=== PATIENT | female | born 1935 | race Caucasian/White ===

== ENCOUNTER 2016-10-20 23:14 | Inpatient (IN) ==
--- NOTE | 2016-10-20 23:51 | Emergency Department Note ---
SOB HPI - General Chief Complaint: Shortness of Breath/Dyspnea Stated Complaint: shortness of breathe Time Seen by Provider: 10/20/16 23:39 Source: EMS Mode of arrival: EMS - History of Present Illness Patient sent here from [place] for shortness of breath. The. She is noted have a respiratory rate of about 40 in the emergency department at [place]. The PA stated that they could not get any IV access, they were unable do any blood work, concern was that she had a fracture of her tib-fib which was a spiral fracture about 2 weeks ago, now she was having significant shortness of breath. The. She is currently in a cast. The right lower leg, today her states she was very weak, shaky at times. She was confused and then this evening she had an increased respiratory rate. Breathing at a rate of 32- 36. She seems short of breath but denies any chest pain, she has had a slight cough but denies any ankle swelling, EKG done in [place] is not showing any ST segment changes, left anterior fascicular block. She denies any abdominal pain , he said no nausea, vomiting, slightly decreased by mouth intake and respiratory symptoms as mentioned. No recent diarrhea, no recent antibiotics, she's been in a cast for a little bit more than a week now. - Related Data Home Medications Medication Instructions Recorded Confirmed HYDROcodone/APAP 5/325MG [[place] 1 tab PO Q5-6HP PRN 10/20/16 10/21/16 5/325Mg] Levothyroxine [Synthroid] 125 mcg PO DAILY 10/20/16 10/20/16 Omeprazole 40 mg PO DAILY 10/20/16 10/20/16 Venlafaxine HCl [Effexor Xr] 150 mg PO DAILY 10/20/16 10/20/16 amLODIPine [Norvasc] 5 mg PO DAILY 10/20/16 10/21/16 busPIRone [Buspar] 10 mg PO HS 10/20/16 10/20/16 lamoTRIgine [Lamictal] 150 mg PO BID 10/20/16 10/20/16 levETIRAcetam [Levetiracetam] 1,500 mg PO BID 10/20/16 10/20/16 Allergies Allergy/AdvReac Type Severity Reaction Status Date / Time No Known Drug Allergies Allergy Unverified 10/21/16 00:04 Review of Systems All systems ED: reviewed and negative except as stated. Constitutional: Reports: fever, chills Eyes: Denies: eye pain ENT ED: Denies: throat pain Cardiovascular: Reports: palpitations, dyspnea on exertion, orthopnea. Denies: chest pain Respiratory: Reports: cough Gastrointestinal: Denies: abdominal pain, nausea Neurological: Denies: headache Psychiatric: Denies: anxiety Endocrine: Reports: fatigue Allergic/Immunologic: Denies: facial swelling Past Medical History - Past Medical History Source: nursing notes reviewed Medical history: Reports: fibromyalgia, hypertension, seizures, thyroid disease Surgical history ED: Reports: orthopedic, other Family history: Reports: non-contributory - Social History smoking status: Never smoker Drug use: Reports: none Physical Exam - General Limitations: no limitations General appearance: alert, in distress - Head Head exam: atraumatic, normocephalic, normal inspection - Eye Eye exam: Present: normal appearance, PERRL, EOMI. Absent: scleral icterus - ENT ENT exam: normal exam, normal oropharynx, mucous membranes moist, TM's normal bilaterally - Neck Neck exam: Present: normal inspection, full ROM, trachea midline. Absent: tenderness, meningismus, lymphadenopathy, thyromegaly - Chest Chest inspection: Present: normal inspection, symmetric chest wall rise. Absent : tenderness - Respiratory Respiratory exam: Present: respiratory distress, prolonged expiratory phase, other (bilateral rhonchi and rales over the lung basis up.) - Cardiovascular Cardiovascular exam: Present: regular rate, normal rhythm - Abdominal Exam Abdominal exam: Present: soft, normal bowel sounds. Absent: distention, tenderness, guarding - Extremities Exam Extremities exam: Present: normal inspection, tenderness, normal capillary refill, joint swelling, other (right lower leg is in a cast, she has good sensation distally. No calf swelling, Homans sign is negativeon the left.). Absent: calf tenderness - Back Exam Back exam: Present: normal inspection, full ROM. Absent: tenderness, CVA tenderness (R), CVA tenderness (L) - Neurological Exam Neurological exam: Present: alert, oriented X3, CN II-XII intact - Psychiatric Psychiatric exam: Present: normal affect, normal mood - Skin Skin exam: Present: warm, dry, diaphoresis. Absent: rash Course - Reevaluation(s) Reevaluation #1: Patient was started on Nitropaste as she was hypertensive, had basilar rales. Blood pressure was still a little bit on the high side, chest x-ray showing bilateral infiltrates consistent with pneumonia. We did obtain a blood gas, she was started on oxygen 2 L after that as her PaO2 was less than 60. PH was 7.47. Pneumonia protocol started and Dr. Sepulveda notified, he will be down to see her in the department. Vital Signs Temperature 97.0 F L 10/20/16 23:15 Pulse Rate 83 10/20/16 23:15 Respiratory Rate 28 H 10/20/16 23:15 Blood Pressure 155/96 10/20/16 23:15 Pulse Oximetry (%) 98 10/20/16 23:15 Temperature 97.0 F L 10/20/16 23:15 Pulse Rate 79 10/21/16 00:39 Respiratory Rate 28 H 10/20/16 23:15 Blood Pressure 146/87 10/21/16 00:39 Pulse Oximetry (%) 98 10/21/16 00:39 Shortness of Breath/Dyspnea - [facility] Narrative Medical decision making narrative: impression is bilateral pneumonia. #2 CHF and hypertension. - Lab Data Result diagrams: 10/20/16 21:58 10/20/16 23:58 Lab Results 10/20/16 10/20/16 Range/Units 21:58 23:58 WBC 24.4 H (4.5-11.0) K/mcL RBC 4.53 (4.00-5.20) M/mcL Hgb 11.5 L (12.0-15.0) g/dL Hct 36.9 (36.0-48.0) % POC Hct 39.0 (36.0-48.0) % MCV 81.5 (80.0-100.0) fL MCH 25.3 L (26.0-34.0) pg MCHC 31.0 (31.0-36.0) g/dL RDW 16.8 H (11.5-14.5) % Plt Count 328 (140-440) K/mcL MPV 7.4 (7.4-10.4) fL Band Neutrophils % Not Reportable POC Sodium 136 (133-145) mmol/L POC Potassium 3.4 (3.3-5.1) mmol/L POC Chloride 98 (96-108) mmol/L POC Total CO2 24 (22-30) mmol/L POC BUN 22 (8-23) mg/dl POC Creatinine 1.2 H (0.6-1.1) mg/dl POC Glucose 132 H (70-105) mg/dL POC WB Ioniz Calcium 1.07 L (1.16-1.32) mmol/L Disposition Clinical Impression: Congestive heart failure, Community acquired pneumonia Disposition: Xfer As Inpt ([facility]) Condition: Undetermined Referrals: Mayo Clayton, RN [Primary Care Provider] -
[2016-10-20] MEDS ORDERED: NITROGLYCERIN 1 GM OINT.TOP TD ONE (23:54)
[2016-10-21 00:50] LABS: Mean Cell Volume 81.5 fL (80.0-100.0); Mean Corpuscular Hemoglobin 25.3 pg (26.0-34.0); Platelet Count 328 K/mcL (140-440); RBC 4.53 M/mcL (4.00-5.20); Red Cell Distribution Width 16.8 % (11.5-14.5)
[2016-10-21] MEDS ORDERED: LEVOFLOXACIN 500 MG/100 ML BAG IV ONE (00:59)
[2016-10-21] MEDS ORDERED: cefTRIAXone 1 GM in DEXTROSE 5% IN WATER 50 ML IV ONE (00:59)
[2016-10-21 01:11] LABS: ALT/SGPT 18 U/l (0-40); Albumin/Globulin Ratio 0.8 (1.0-2.3); Alkaline Phosphatase 69 U/L (39-117); Blood Urea Nitrogen 20 mg/dl (8-23); C-Reactive Protein 28.6 mg/dl (0.0-0.8); Creatine Kinase 843 IU/L (24-170); Creatine Kinase MB 6.9 ng/ml (0-2.9)
[2016-10-21 01:23] LABS: Anisocytosis 1+ (NONE SEEN); Band Neutrophils % 2 % (0-10); Hypochromasia 1+ (NONE SEEN); Lymphocytes % 2 % (15-49); Monocytes % (Manual) 14 % (1-9); Platelet Estimate NORMAL (NORMAL); RBC Morphology ABNORM (NORMAL); Segmented Neutrophils % 82 % (38-78)
--- NOTE | 2016-10-21 02:11 | Internal Med History&Physical ---
Medical - H&P: HPI Patient information: Note initiated : 10/21/16 at 2:06 am Service Date, if different from initiated Date: [] Patient: Gloria Rose a 81 y/o F admitted on for shortness of breathe. Chief Complaint: [] History of present illness: Ms. Rose is a 81 year old female who lives with her in [place] presents to the ER from [place] via ambulance, with not feeling well x 3-5 days. The patient had a fracture of her ankle nearly 2 weeks ago, and was placed in cast and on hydrocodone for pain relief. This medication made her very sick and loopy. The patient had an episode of vomiting approximately 12 days ago, and has not been feeling well on and off. The patient over the last 3-5 days has gradually deteriorated, with cough, with no expectoration, shortness of breath, fever, chills and rigors, fatigue, sweating, and generalized malaise. No aggravating or releving factors, progressively has gotten worse. She had some nausea this evening. The patient was confused today and not herself, with tachypena was brought to [facility], where it was difficult to get IV access, therefore pt was sent here. since Yesterday the patient has also noticed increased frequency of urination, foul smelling urine, and has been taking otc azo for same. In the ER here she presented with tachypea, diaphoresis, sweating, elevated blood pressure. She was given IV fluids, X ray showed es pna as pe ER physician , UA suggestive of UTI. She was therefore admitted to the hospital for further management. - Constitutional Constitutional: Present: chills, fatigue, fever(s), weakness - EENT Eyes: Absent: blind spots, blurry vision, change in vision Ears: Absent: ear discharge, tinnitus Nose, mouth and throat: Absent: disequilibrium, dizziness - Cardiovascular Cardiovascular: Present: diaphoresis. Absent: chest pain, palpatations, syncope - Respiratory Respiratory: Present: cough, dyspnea, dyspnea on exertion - Gastrointestinal Gastrointestinal: Present: nausea, vomiting. Absent: abdominal pain - Genitourinary Genitourinary: Present: urinary frequency, urinary urgency. Absent: hematuria - Musculoskeletal Musculoskeletal: Present: arthralgias (ankle pain.) - Integumentary Integumentary: Absent: unusual bruising, wounds, jaundice - Neurological Neurological: Absent: dizziness, focal weakness, syncope, vertigo - Psychiatric Psychiatric: Present: confusion. Absent: anxiety - Endocrine Endocrine: Absent: polydipsia, polyphagia, polyuria - Hematologic/Lymphatic Hematologic/Lymphatic: Absent: easy bleeding, easy bruising - Allergic/Immunologic Allergic/Immunologic: Absent: uticaria, wheezing Medical - H&P: PMH Medical history: Medical History Community acquired pneumonia (Acute) Congestive heart failure (Acute) seizures htn hypothyroidism Surgical history: back surgery Ankle fracture 2 weeks ago Family history: reviewed and not pertinent Social history: lives with no etoh, no tobacco, no recreational drugs. Medical - H&P: Meds Home Medications Medication Instructions Recorded Confirmed Type HYDROcodone/APAP 5/325MG [[place] 1 tab PO Q5-6HP PRN 10/20/16 10/21/16 History 5/325Mg] Levothyroxine [Synthroid] 125 mcg PO DAILY 10/20/16 10/20/16 History Omeprazole 40 mg PO DAILY 10/20/16 10/20/16 History Venlafaxine HCl [Effexor Xr] 150 mg PO DAILY 10/20/16 10/20/16 History amLODIPine [Norvasc] 5 mg PO DAILY 10/20/16 10/21/16 History busPIRone [Buspar] 10 mg PO HS 10/20/16 10/20/16 History lamoTRIgine [Lamictal] 150 mg PO BID 10/20/16 10/20/16 History levETIRAcetam [Levetiracetam] 1,500 mg PO BID 10/20/16 10/20/16 History Allergies Allergy/AdvReac Type Severity Reaction Status Date / Time No Known Drug Allergies Allergy Unverified 10/21/16 00:04 Medical - H&P: Exam - Constitutional Vitals: Temp Pulse Resp BP Pulse Ox 97.0 F L 78 28 H 150/99 96 10/20/16 23:15 10/21/16 00:59 10/20/16 23:15 10/21/16 00:59 10/21/16 00:59 General appearance: cooperative, no acute distress - Head Head exam: Present: atraumatic, normal inspection, normocephalic - Eye Eye exam: Present: PERRL. Absent: periorbital swelling, periorbital tenderness , scleral icterus - ENT ENT exam: Present: mucous membranes dry - Neck Neck exam: Present: normal inspection - Respiratory Respiratory exam: Present: prolonged expiratory phase. Absent: accessory muscle use, chest wall tenderness, respiratory distress, wheezes Additional comments: bibasilar mild insipiratory crackles. - Cardiovascular Cardiovascular exam: Present: normal rate and rhythm, +S1, +S2 - GI/Abdominal GI/Abdominal exam: Present: normal bowel sounds, soft. Absent: firm, guarding, rebound, tenderness - Extremities Exam Extremities exam: Present: Foot pink and warm, neurovascular intact. Absent: pedal edema Additional comments: right foot in cast, - Back Exam Back exam: Present: normal inspection. Absent: paraspinal tenderness - Neurological Exam Neurological exam: Present: alert ( oox2, moving all extremities, ). Absent: motor sensory deficit - Psychiatric Psychiatric exam: Absent: agitated, anxious - Skin Skin exam: Present: warm. Absent: rash, urticaria Medical - H&P: Reslt - Labs CBC & Chem 7: 10/20/16 21:58 10/20/16 23:58 Labs: Short CBC 10/20/16 Range/Units 21:58 WBC 24.4 H (4.5-11.0) K/mcL Hgb 11.5 L (12.0-15.0) g/dL Hct 36.9 (36.0-48.0) % Plt Count 328 (140-440) K/mcL BMP 10/20/16 23:58 Sodium 131 L Potassium 3.4 Chloride 93 L Carbon Dioxide 20 L BUN 20 Creatinine 1.4 H Glucose 131 H Calcium 8.8 Cardiac Enzymes 10/20/16 10/20/16 Range/Units 23:58 23:58 Total Creatine Kinase 843 H (24-170) IU/L CK-MB (CK-2) 6.9 H (0-2.9) ng/ml Troponin T < 0.01 (0-0.03) ng/ml Liver Function 10/20/16 Range/Units 23:58 Total Bilirubin 0.6 (0.0-1.0) mg/dL AST 49 H (0-37) U/l ALT 18 (0-40) U/l Alkaline Phosphatase 69 (39-117) U/L Albumin 3.0 L (3.2-5.2) gm/dL - ABG Interpretation -: ABG interpreted by me Additional comments: Acute respiratory alkalosis, associated with high anion gap metabolic acidosis. - EKG Data -: EKG Interpreted by Myself EKG shows normal: sinus rhythm - EKG Data Prior EKG available for review: no Interpretation: other EKG comments: 10/21/16 02:18 sinus tachycardia lafb non sp st wave changes. - Impressions cxr chest - right middle lobe pna es intersitial markings, interstitial pna vs chf. Medical - H&P: A/P (1) Severe sepsis Current visit: Yes Status: Acute (2) Urinary tract infection Current visit: Yes Status: Acute (3) Acute kidney injury Current visit: Yes Status: Acute (4) Septic encephalopathy Current visit: Yes Status: Acute (5) Hypertension Current visit: Yes Status: Acute (6) Seizure disorder Current visit: Yes Status: Acute (7) Community acquired pneumonia Current visit: Yes Status: Acute (8) Acute respiratory failure with hypoxia Current visit: Yes Status: Acute - Narrative A/P Narrative: CAP- Treat with rocephin and zithromax, get urine legionella, mycoplasma antibodies, await blood culture Severe sepsis- Confusion, acidosis, renal failure, await lactate, IV fluids and IV antibiotics for now, bp stable. Monitor on Tele. Acute hypoxic resp failure- Oxygen supplementation, Consider bipap if needed. UTI- Urine culture, rocephin should cover this. Seizure disorder- Resume home meds- seizure and fall precautions HTN- Hold home bp medication given bp normal in ER, has a nitro patch on, will d /c same if bp drops Pain management- Low dose oxycodone now, given hydrocodone was causing confusion Diet regular Code full DVT lovenox sq
[2016-10-21] MEDS ORDERED: oxyCODONE HCL 5 MG TABLET PO PRN (03:06)
[2016-10-21] MEDS ORDERED: AZITHROMYCIN 500 MG in DEXTROSE 5% IN WATER 250 ML IV ONE (03:06)
[2016-10-21] MEDS ORDERED: BISACODYL 5 MG TABLET PO PRN (03:06)
[2016-10-21] MEDS ORDERED: NALOXONE HCL 0.4 MG/ML VIAL IV PRN (03:06)
[2016-10-21] MEDS ORDERED: ACETAMINOPHEN 325 MG TABLET PO PRN (03:06)
[2016-10-21] MEDS ORDERED: BISACODYL 10 MG SUPP.RECT PR PRN (03:06)
[2016-10-21] MEDS ORDERED: ONDANSETRON 4 MG/2 ML VIAL IV PRN (03:06)
[2016-10-21] MEDS ORDERED: cefTRIAXone 1 GM VIAL ONE (03:20)
[2016-10-21] MEDS: cefTRIAXone 2 GM in DEXTROSE 5% IN WATER 50 ML IV SCH (04:04)
[2016-10-21] MEDS: LACTATED RINGERS 1,000 ML IV SCH ×2 (04:25→16:17)
[2016-10-21 06:06] LABS: ALT/SGPT 16 U/l (0-40); Albumin 2.7 gm/dL (3.2-5.2); Albumin/Globulin Ratio 0.7 (1.0-2.3); Alkaline Phosphatase 73 U/L (39-117); Bilirubin,Direct < 0.2 mg/dL (0.0-0.3); Blood Urea Nitrogen 20 mg/dl (8-23); Gamma Glutamyl Transpeptidase 29 U/L (5-36); Magnesium 1.6 mg/dL (1.6-2.5); Phosphorous 3.3 mg/dL (2.7-4.5); Uric Acid 4.7 mg/dL (2.5-8.0)
[2016-10-21] MEDS ORDERED: IPRATROPIUM/ALBUTEROL 3 ML AMPUL.NEB NEB SCH (07:00)
[2016-10-21] MEDS: LEVOTHYROXINE 125 MCG TABLET PO SCH (07:49)
[2016-10-21] MEDS: PANTOPRAZOLE 40 MG TABLET PO SCH (07:49)
[2016-10-21] MEDS: levETIRAcetam 500 MG TABLET PO SCH ×2 (08:05→21:53)
[2016-10-21] MEDS: AZITHROMYCIN 250 MG TABLET PO SCH (08:05)
[2016-10-21] MEDS: VENLAFAXINE 150 MG CAP.XL.24H PO SCH (08:05)
[2016-10-21] MEDS: ENOXAPARIN 30 MG/0.3 ML SYRINGE SQ SCH (08:05)
--- NOTE | 2016-10-21 08:06 | XRay Report ---
CLINICAL INFORMATION: Dyspnea for one week TECHNIQUE: AP and lateral chest x-ray COMPARISON: Previous examination dated 10/20/2016 and 04/04/2009 FINDINGS: No focal pulmonary parenchymal infiltrate or mass. Pulmonary vascularity is prominent with upper lobe redistribution. Findings are consistent pulmonary congestion. There is peribronchial thickening and probable interstitial pulmonary edema. No significant pleural effusion. IMPRESSION: 1. Appearance consistent with pulmonary congestion and probable interstitial edema. 2. No focal consolidation. Interpreted and Authenticated by: Raffy Montoya 10/21/16
[2016-10-21] MEDS ORDERED: FUROSEMIDE 40 MG/4 ML VIAL IV ONE (08:13)
[2016-10-21] MEDS ORDERED: NITROGLYCERIN 0.4 MG TAB.SUBL SL PRN (08:13)
[2016-10-21] MEDS ORDERED: NITROGLYCERIN 0.4 MG TAB.SUBL SL ONE (08:15)
[2016-10-21 08:17] LABS: Basophils # (Auto) 0 K/mcL (0.0-0.3); Basophils % (Auto) 0.1 % (0.0-2.0); Eosinophils # (Auto) 0 K/mcL (0.0-0.7); Eosinophils % (Auto) 0.1 % (0.0-7.0); Granulocytes % (Auto) 95.2 % (38.0-78.0); Lymphocytes # (Auto) 0.4 K/mcL (1.5-4.8); Lymphocytes % (Auto) 1.9 % (15.5-49.0); Mean Cell Volume 81.1 fL (80.0-100.0); Mean Corpuscular HGB Conc 30.9 g/dL (31.0-36.0); Monocytes # (Auto) 0.6 K/mcL (0.1-0.9); Monocytes % (Auto) 2.7 % (1.0-9.0); Platelet Count 342 K/mcL (140-440); RBC 4.57 M/mcL (4.00-5.20); Red Cell Distribution Width 17.3 % (11.5-14.5)
[2016-10-21] MEDS ORDERED: ASPIRIN 81 MG TAB.CHEW CHEWED ONE (08:18)
[2016-10-21] MEDS ORDERED: ASPIRIN 81 MG TAB.CHEW ONE (08:19)
--- NOTE | 2016-10-21 08:56 | XRay Report ---
CLINICAL INFORMATION: Dyspnea TECHNIQUE: AP portable upright chest x-ray COMPARISON: Previous examination dated 10/21/2016 FINDINGS: Pulmonary vascularity remains prominent. Appearance is consistent with pulmonary congestion, increased since prior study. There is mild peribronchial thickening consistent with interstitial edema. Overall appearance is slightly worsened on previous examination. IMPRESSION: 1. Appearance consistent pulmonary congestion and mild interstitial edema. 2. Slight interval worsening since previous examination dated 10/21/2016 Interpreted and Authenticated by: Raffy Montoya 10/21/16
[2016-10-21] MEDS ORDERED: lamoTRIgine 150 MG TABLET PO SCH (09:00)
[2016-10-21 09:18] LABS: Creatine Kinase MB 6.4 ng/ml (0-2.9)
--- NOTE | 2016-10-21 09:34 | Internal Med Progress Note ---
Medical - PN: Subj Patient information: Note initiated : 10/21/16 at 9:34 am Service Date, if different from initiated Date: [] Patient: Gloria Rose a 81 y/o F admitted on 10/21/16 for shortness of breathe. Chief Complaint: [] Interval history: 10/20 : Ms. Rose is a 81 year old female who lives with her in [place] presents to the ER from [place] via ambulance, with not feeling well x 3-5 days. The patient had a fracture of her ankle nearly 2 weeks ago, and was placed in cast and on hydrocodone for pain relief. This medication made her very sick and loopy. The patient had an episode of vomiting approximately 12 days ago, and has not been feeling well on and off. The patient over the last 3-5 days has gradually deteriorated, with cough, with no expectoration, shortness of breath, fever, chills and rigors, fatigue, sweating, and generalized malaise. No aggravating or releving factors, progressively has gotten worse. She had some nausea this evening. The patient was confused today and not herself, with tachypena was brought to [facility], where it was difficult to get IV access, therefore pt was sent here. since Yesterday the patient has also noticed increased frequency of urination, foul smelling urine, and has been taking otc azo for same. In the ER here she presented with tachypnea, diaphoresis, sweating, elevated blood pressure. She was given IV fluids, X ray showed es pna as pe ER physician, UA suggestive of UTI. She was therefore admitted to the hospital for further management. placed on zithromax and rocephin for UTI and PNA> 10/21: Pt this AM notoed to be short of breath again, did note some chest discomfort. the patent was also febrile with elevated blood pressures. She was given NTG, ASA and IV lasix, CXR shows worsening pulmonary edema. The patient responded to treatment well. Trop is neg, ck mb is lower than yesterday, BNP is high but better than yesterday. Given her high fever of 102, another set of blood culture ordered. The patient is still somewhat confused. But denies any other complaints. CXR is neg for pna, so its likely that she only has a UTI with sepsis. Will get echo today, repeat EKG. Closely monitor on tele labs show normal lactate, elevated wbc still. Creat mildly improved to 1.3. Will [address] [place] for good monitoring of urine output. Will consider bipap therapy if needed. Pertinent ROS: General: diaphoretic, and short of breath. Denies headache, dizziness Present chest pain, no palpitations Denies cough or shortness of breath present Denies abdominal pain, nausea or vomiting. - Constitutional Vitals: Vital Signs Temp Pulse Resp BP Pulse Ox 102.4 F H 97 H 28 H 167/65 93 10/21/16 08:40 10/21/16 08:40 10/21/16 08:40 10/21/16 08:40 10/21/16 08:40 Period Temp Pulse Resp BP Sys/[place] Pulse Ox Last 24 Hr 98.3 F-102.4 F 78-98 18-36 109-167/62-67 93-97 Intake and Output 10/20/16 10/21/16 10/21/16 21:59 05:59 13:59 Intake Total 630 / 630 Output Total Balance -20 / 130 599 / 599 Intake & Output: Intake & Output 10/20/16 10/21/16 10/21/16 21:59 05:59 13:59 Intake Total 630 / 630 Output Total Balance -20 / 130 599 / 599 Intake: IV 250 / 250 Dextrose 5% in Water 250 250 / 250 ml @ 250 mls/hr IV ONCE ONE with Zithromax 500 mg Rx#:[id number] Oral 380 / 380 Output: Void Amount 30 / 30 # of times incontinent of urine Exam: Constitutional; Afebrile, cooperative, alert,mild distress. Eyes- No icterus, Pupils equal, reactive, No periorbital swelling Ears- Ext ear normal, hearing normal to conversation. Neck- Midline trachea, supple RS Air entry equal on both sides, es basilar crackles. CVS- Rate rhythm regular, S1,S2 heard, no gallop, no rub. Abdomen- Soft nontender abdomen, no organomegaly, no tenderness, no guarding or rigidity, [employer]- AOOx2, appears confused, moving all extremities, no focal deficit noted. Medical - PN: Obj Da - Labs CBC & Chem 7: 10/21/16 07:37 10/21/16 03:55 Labs: Abnormal Lab Results 10/21/16 10/21/16 10/21/16 08:25 08:25 07:37 WBC 23.9 H Hgb 11.4 L MCH 25.0 L MCHC 30.9 L RDW 17.3 H MPV 7.2 L Gran % 95.2 H Lymph % (Auto) 1.9 L Gran # 22.8 H Lymph # 0.4 L Chloride Carbon Dioxide Anion Gap Creatinine AST Lactate Dehydrogenase CK-MB (CK-2) 6.4 H NT-Pro-B Natriuret Pep 3482.0 H Albumin Globulin Albumin/Globulin Ratio 10/21/16 03:55 WBC Hgb MCH MCHC RDW MPV Gran % Lymph % (Auto) Gran # Lymph # Chloride 94 L Carbon Dioxide 20 L Anion Gap 19.0 H Creatinine 1.3 H AST 48 H Lactate Dehydrogenase 393 H CK-MB (CK-2) NT-Pro-B Natriuret Pep Albumin 2.7 L Globulin 3.8 H Albumin/Globulin Ratio 0.7 L Meds: Medications Acetaminophen (Tylenol) 650 mg PO Q6HP PRN PRN Reason: PAIN/FEVER > 101 Last Admin: 10/21/16 08:39 Dose: 650 mg Albuterol/Ipratropium (Duoneb) 3 ml NEB Q4HRT [facility] Azithromycin (Zithromax) 250 mg PO DAILY [facility] Stop: 10/24/16 09:01 Last Admin: 10/21/16 08:05 Dose: 250 mg Bisacodyl (Dulcolax) 10 mg PO DAILYP PRN PRN Reason: Constipation Bisacodyl (Dulcolax) 10 mg MD Q3DP PRN PRN Reason: Constipation Buspirone HCl (Buspar) 10 mg PO HS [facility] Enoxaparin Sodium (Lovenox) 30 mg SQ DAILY [facility] Last Admin: 10/21/16 08:05 Dose: 30 mg Lactated Ringer's (Lactated Ringers) 1,000 mls @ 100 mls/hr IV .Q10H [facility] Last Admin: 10/21/16 04:25 Dose: 100 mls/hr Ceftriaxone Sodium 2 gm/ (Dextrose) 50 mls @ 100 mls/hr IV Q24H [facility] Last Admin: 10/21/16 04:04 Dose: Not Given Lamotrigine (Lamictal) 150 mg PO BID [facility] Levetiracetam (Keppra) 1,500 mg PO BID [facility] Last Admin: 10/21/16 08:05 Dose: 1,500 mg Levothyroxine Sodium (Synthroid) 125 mcg PO QAMAC [facility] Last Admin: 10/21/16 07:49 Dose: 125 mcg Naloxone HCl (Narcan) 0.1 mg IV Q2MIN PRN PRN Reason: Opiate Reversal Nitroglycerin (Nitrostat) 0.4 mg SL Q5M PRN PRN Reason: Chest Pain Ondansetron HCl (Zofran) 4 mg IV Q4HP PRN PRN Reason: Nausea And Vomiting Oxycodone HCl (Roxicodone) 2.5 - 5 mg PO Q4HP PRN PRN Reason: Pain Pantoprazole Sodium (Protonix) 40 mg PO QAMAC [facility] Last Admin: 10/21/16 07:49 Dose: 40 mg Venlafaxine HCl (Effexor Xr) 150 mg PO DAILY [facility] Last Admin: 10/21/16 08:05 Dose: 150 mg Medical - PN: A/P - Time Spent With Patient Total time spent is greater than 50% in coordination of care (as documented) at patient's floor/unit and/or counseling patient: (1) Severe sepsis Status: Acute Current Visit: Yes (2) Urinary tract infection Status: Acute Current Visit: Yes (3) Acute kidney injury Status: Acute Current Visit: Yes (4) Septic encephalopathy Status: Acute Current Visit: Yes (5) Hypertension Status: Acute Current Visit: Yes (6) Seizure disorder Status: Acute Current Visit: Yes (7) Community acquired pneumonia Status: Acute Current Visit: Yes (8) Acute respiratory failure with hypoxia Status: Acute Current Visit: Yes - Narrative A/P Narrative: CAP- Treat with rocephin and zithromax, get urine legionella, mycoplasma antibodies, await blood culture, CXR not suggestive of pna, but pt does have cough, She needs rocephin for UTI too, will continue zithromax for now given cough and suspected pna Severe sepsis- Confusion, acidosis, renal failure, await lactate, IV fluids and IV antibiotics for now, bp stable. Monitor on Tele. CHF: Trop neg, bnp elevated, CXR suggestive of pulm edema, consider bipap if needed, use lasix for now given bp is high. Get Echo today. Acute hypoxic resp failure- Oxygen supplementation, Consider bipap if needed. UTI- Urine culture, rocephin should cover this. Seizure disorder- Resume home medsKeppra and lamotrigine - seizure and fall precautions HTN- Hold home bp medication given bp normal in ER, lasix for pulm edema, monitor closely . Pain management- Low dose oxycodone now, given hydrocodone was causing confusion Diet regular Code full DVT lovenox sq Medical - PN: Qual - VTE Deep Vein Thrombosis/Pulmonary Embolism Present on Admission: No
[2016-10-21] MEDS: lamoTRIgine 100 MG TABLET PO SCH ×2 (11:09→21:53)
[2016-10-21] MEDS: IPRATROPIUM/ALBUTEROL 3 ML AMPUL.NEB NEB SCH ×4 (13:11→23:26)
--- NOTE | 2016-10-21 17:26 | Echocardiogram Report ---
ECHOCARDIOGRAM: 2-D and M-mode echocardiography with cardiac Doppler and color-flow imaging were performed with a [employer] Aplio MX. All 4 chambers appeared mildly enlarged, probably commensurate with BSA 2.22 m sq. LV wall thickness appeared mildly increased. Systolic performance appeared low normal. Estimated ejection fraction is 50-55 percent. Aortic root diameter appeared normal. The aortic valve appeared trileaflet and normal. There was no evidence for aortic stenosis or aortic regurgitation by Doppler interrogation. The mitral and tricuspid valves appear unremarkable. Doppler interrogation of LV inflow disclosed normal \\"e\\" dominance and a normal early diastolic deceleration time. There was no evidence for mitral regurgitation. The pulmonic valve was not visualized. Pulmonary artery acceleration time appeared shortened. There was no evidence for pulmonic stenosis __. Pulmonic regurgitation and tricuspid regurgitation, both probably mild (1+), were demonstrated. No intracardiac shunting was appreciated. There was no evidence for pericardial effusion. A prominent apical space suggesting pericardial fat pad was present. The IVC was dilated and did not vary with the respiratory cycle indicating raised CVP. Calculated estimate of PA systolic pressure was moderately elevated at 50 mmHg. Sinus rhythm, rate 94, was present. CONCLUSION: Mild 4 chamber enlargement commensurate with BSA 2.22 m sq, mild concentric LVH and low normal LV systolic performance. 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 Prominent apical pericardial fat pad. (See accompanying M-mode and Doppler reports for quantitation). ECHOCARDIOGRAPHY M-MODE CALCULATIONS: HT: 67 inches WT: 249 BSA: 2.22 m sq NORMALS AORTA: AORTIC ROOT 3.1 2.0-3.7 cm LEFT ATRIUM 4.4 1.9-4.0 cm MITRAL VALVE: EXCURSION 2.2 1.9-2.7 cm EPSS 0.4 <0.5 cm LT VENTRICLE: LVID (ED) 5.0 3.5-5.7 cm LVID (ES) 3.2 SEPTAL THICKNESS 1.2 0.6-1.1 cm SEPTAL EXCURSION 0.8 0.3-0.8 cm LVPW THICKNESS 1.2 0.6-1.1 cm LVPW EXCURSION 1.0 0.9-1.4 cm MINOR AXIS FS 36 25%-40% RT VENTRICLE: RVID (ED) 0.5 0.9-2.6 cm(up to 3cm if LLD) QUALITATIVE DOPPLER FLOW STUDIES MITRAL VALVE AORTIC VALVE TRICUSPID VALVE TR, probably mild (1+) PULMONIC VALVE RI, probably mild (1+) QUANTITATIVE DOPPLER FLOW STUDIES SAMPLE SITES VELOCITIES PEAK PRESSURE VALVE AREA and/or VALVE WINDOW(PEAK,M/SEC)DROP (GRADIENT)PRESSURE HALF-TIME MV (Diastole) 1.0 (E) 0.6 (A) MV (Systole) AO (Diastole) AO (Systole) 1.7 TV (Systole) 2.8 PV (Systole) 1.1 PV (Diastole) 1.7 [id number] Job ID: [id number] Doc ID: [id number] Epi Huddleston MD
[2016-10-21] MEDS ORDERED: busPIRone 5 MG TABLET PO SCH (21:00)
[2016-10-21] MEDS ORDERED: ACETAMINOPHEN 500 MG TABLET PO PRN (22:31)
[2016-10-21] MEDS ORDERED: diphenhydrAMINE 25 MG CAPSULE PO PRN (22:33)
[2016-10-21] MEDS ORDERED: diphenhydrAMINE 25 MG CAPSULE ONE (22:38)
[2016-10-21] MEDS ORDERED: ACETAMINOPHEN 500 MG TABLET PO ONE (22:39)
[2016-10-22] MEDS: IPRATROPIUM/ALBUTEROL 3 ML AMPUL.NEB NEB SCH ×6 (03:19→22:22)
[2016-10-22 05:59] LABS: Basophils # (Auto) 0 K/mcL (0.0-0.3); Basophils % (Auto) 0.1 % (0.0-2.0); Eosinophils # (Auto) 0.2 K/mcL (0.0-0.7); Eosinophils % (Auto) 0.9 % (0.0-7.0); Granulocytes % (Auto) 81.9 % (38.0-78.0); Lymphocytes # (Auto) 1.3 K/mcL (1.5-4.8); Mean Cell Volume 81.9 fL (80.0-100.0); Mean Corpuscular HGB Conc 30.9 g/dL (31.0-36.0); Mean Corpuscular Hemoglobin 25.3 pg (26.0-34.0); Monocytes # (Auto) 2.3 K/mcL (0.1-0.9); Monocytes % (Auto) 11.1 % (1.0-9.0); Platelet Count 306 K/mcL (140-440); RBC 4.15 M/mcL (4.00-5.20); Red Cell Distribution Width 17.1 % (11.5-14.5)
[2016-10-22 06:17] LABS: ALT/SGPT 15 U/l (0-40); Albumin 2.6 gm/dL (3.2-5.2); Albumin/Globulin Ratio 0.7 (1.0-2.3); Alkaline Phosphatase 235 U/L (39-117); Bilirubin,Direct < 0.2 mg/dL (0.0-0.3); Blood Urea Nitrogen 24 mg/dl (8-23); Gamma Glutamyl Transpeptidase 29 U/L (5-36); Magnesium 1.8 mg/dL (1.6-2.5); Phosphorous 3.9 mg/dL (2.7-4.5); Uric Acid 5.9 mg/dL (2.5-8.0)
--- NOTE | 2016-10-22 07:33 | XRay Report ---
CLINICAL INFORMATION: Dyspnea TECHNIQUE: Upright AP portable chest x-ray COMPARISON: Previous chest x-rays dated 10/21/2016 and 10/20/2016 FINDINGS: Left hemidiaphragm is obscured consistent with left basilar infiltrate. Upright PA and lateral chest x-ray recommended when clinically appropriate. Right lung is negative. Pulmonary vascularity is improved as compared with previous examinations. No evidence for pulmonary edema. IMPRESSION: 1. Probable right basilar infiltrate. Recommend PA and lateral chest x-ray 2. Improved vascularity. No pulmonary edema. Interpreted and Authenticated by: Raffy Montoya 10/22/16
[2016-10-22] MEDS: LEVOTHYROXINE 125 MCG TABLET PO SCH (08:18)
[2016-10-22] MEDS: PANTOPRAZOLE 40 MG TABLET PO SCH (08:18)
--- NOTE | 2016-10-22 08:19 | Ultrasound Report ---
CLINICAL INFORMATION: Abnormal liver function tests TECHNIQUE: Grayscale and color flow spectral imaging COMPARISON: Previous chest CT scan dated 09/16/2014 FINDINGS: Very limited examination. The gallbladder is not visualized. No dilated bile duct. Common bile that measures 4.5 mm Right lobe of the liver is poorly visualized. There is a hypoechoic area which is vascular and probably represents confluence of hepatic veins. No definite discrete mass. Left lobe is grossly negative. Liver contour is smooth. No evidence for cirrhosis. No ascites. Visualized portions of the pancreas are normal. IMPRESSION: 1. Nonvisualization of the gallbladder. 2. Poorly visualized liver. Definite abnormality is not identified. CT scan may be helpful if clinically indicated Interpreted and Authenticated by: Raffy Montoya 10/22/16
--- NOTE | 2016-10-22 09:24 | Internal Med Progress Note ---
Medical - PN: Subj Patient information: Note initiated : 10/22/16 at 9:22 am Service Date, if different from initiated Date: [] Patient: Gloria Rose a 81 y/o F admitted on 10/21/16 for shortness of breathe. Chief Complaint: [] Interval history: 10/20 : Ms. Rose is a 81 year old female who lives with her in [place] presents to the ER from [place] via ambulance, with not feeling well x 3-5 days. The patient had a fracture of her ankle nearly 2 weeks ago, and was placed in cast and on hydrocodone for pain relief. This medication made her very sick and loopy. The patient had an episode of vomiting approximately 12 days ago, and has not been feeling well on and off. The patient over the last 3-5 days has gradually deteriorated, with cough, with no expectoration, shortness of breath, fever, chills and rigors, fatigue, sweating, and generalized malaise. No aggravating or releving factors, progressively has gotten worse. She had some nausea this evening. The patient was confused today and not herself, with tachypena was brought to [facility], where it was difficult to get IV access, therefore pt was sent here. since Yesterday the patient has also noticed increased frequency of urination, foul smelling urine, and has been taking otc azo for same. In the ER here she presented with tachypnea, diaphoresis, sweating, elevated blood pressure. She was given IV fluids, X ray showed es pna as pe ER physician, UA suggestive of UTI. She was therefore admitted to the hospital for further management. placed on zithromax and rocephin for UTI and PNA> 10/21: Pt this AM notoed to be short of breath again, did note some chest discomfort. the patent was also febrile with elevated blood pressures. She was given NTG, ASA and IV lasix, CXR shows worsening pulmonary edema. The patient responded to treatment well. Trop is neg, ck mb is lower than yesterday, BNP is high but better than yesterday. Given her high fever of 102, another set of blood culture ordered. The patient is still somewhat confused. But denies any other complaints. CXR is neg for pna, so its likely that she only has a UTI with sepsis. Will get echo today, repeat EKG. Closely monitor on tele labs show normal lactate, elevated wbc still. Creat mildly improved to 1.3. Will [address] [place] for good monitoring of urine output. Will consider bipap therapy if needed. 10/22: pt seen examined, doing much better, no fever or chills, no overnight seizures reported, X ray this AM shwos possible infiltrate? Her WBC count is better but still high at 20K. Her mental status is better today X ray shows improvement in pulmonary infiltrates Echo shows low normal LVEF, and LVH, and signs of fluids overload. Continue IV antibiotics for PNA and UTI. The patient Alk phos was high today, USG liver done, cbd is normal size, GB not visualized. Pt has not reported abdominal pain. Pertinent ROS: Denies headache, dizziness Denies chest pain, palpitations Denies cough or shortness of breath Denies abdominal pain, nausea or vomiting. - Constitutional Vitals: Vital Signs Temp Pulse Resp BP Pulse Ox 98.0 F 72 18 132/65 93 10/22/16 04:00 10/22/16 07:19 10/22/16 07:19 10/22/16 04:00 10/22/16 07:19 Period Temp Pulse Resp BP Sys/Morejon Pulse Ox Last 24 Hr 97.9 F-102.2 F 65-73 16-24 115-132/53-65 87-99 Intake and Output 10/21/16 10/22/16 10/22/16 21:59 05:59 13:59 Intake Total 150 / 150 150 / 150 Output Total 650 / 650 400 / 400 Balance -500 / -500 -250 / -250 Weight 247 lb 11.2 oz Intake & Output: Intake & Output 10/21/16 10/22/16 10/22/16 21:59 05:59 13:59 Intake Total 150 / 150 150 / 150 Output Total 650 / 650 400 / 400 Balance -500 / -500 -250 / -250 Weight 247 lb 11.2 oz Intake: Oral 150 / 150 150 / 150 Output: Urine Catheter Amount 650 / 650 400 / 400 Medical - PN: Obj Da - Labs CBC & Chem 7: 10/22/16 03:50 10/22/16 03:50 Labs: Abnormal Lab Results 10/22/16 10/22/16 10/21/16 03:50 03:50 08:25 WBC 20.9 H Hgb 10.5 L Hct 34.0 L MCH 25.3 L MCHC 30.9 L RDW 17.1 H MPV Gran % 81.9 H Lymph % (Auto) 6.0 L [place] % (Auto) 11.1 H Gran # 17.1 H Lymph # 1.3 L [place] # 2.3 H Chloride Carbon Dioxide Anion Gap BUN 24 H Creatinine 1.3 H AST Alkaline Phosphatase 235 H Lactate Dehydrogenase 482 H CK-MB (CK-2) 6.4 H NT-Pro-B Natriuret Pep Albumin 2.6 L Globulin 3.9 H Albumin/Globulin Ratio 0.7 L 10/21/16 10/21/16 10/21/16 08:25 07:37 03:55 WBC 23.9 H Hgb 11.4 L Hct MCH 25.0 L MCHC 30.9 L RDW 17.3 H MPV 7.2 L Gran % 95.2 H Lymph % (Auto) 1.9 L [place] % (Auto) Gran # 22.8 H Lymph # 0.4 L [place] # Chloride 94 L Carbon Dioxide 20 L Anion Gap 19.0 H BUN Creatinine 1.3 H AST 48 H Alkaline Phosphatase Lactate Dehydrogenase 393 H CK-MB (CK-2) NT-Pro-B Natriuret Pep 3482.0 H Albumin 2.7 L Globulin 3.8 H Albumin/Globulin Ratio 0.7 L Meds: Medications Acetaminophen (Tylenol) 650 mg PO Q6HP PRN PRN Reason: PAIN/FEVER > 101 Last Admin: 10/21/16 08:39 Dose: 650 mg Acetaminophen (Tylenol) 500 mg PO HSP PRN PRN Reason: PAIN/FEVER > 101 Albuterol/Ipratropium (Duoneb) 3 ml NEB Q4HRT [facility] Last Admin: 10/22/16 07:14 Dose: 3 ml Azithromycin (Zithromax) 250 mg PO DAILY [facility] Stop: 10/24/16 09:01 Last Admin: 10/21/16 08:05 Dose: 250 mg Bisacodyl (Dulcolax) 10 mg PO DAILYP PRN PRN Reason: Constipation Bisacodyl (Dulcolax) 10 mg [place] Q3DP PRN PRN Reason: Constipation Buspirone HCl (Buspar) 10 mg PO [facility] Last Admin: 10/21/16 21:53 Dose: 10 mg Diphenhydramine HCl (Benadryl) 25 mg PO HSP PRN PRN Reason: Allergic Symptoms Enoxaparin Sodium (Lovenox) 30 mg SQ DAILY [facility] Last Admin: 10/21/16 08:05 Dose: 30 mg Ceftriaxone Sodium 2 gm/ (Dextrose) 50 mls @ 100 mls/hr IV Q24H [facility] Last Admin: 10/21/16 04:04 Dose: Not Given Lamotrigine (Lamictal) 150 mg PO BID [facility] Last Admin: 10/21/16 21:53 Dose: 150 mg Levetiracetam (Keppra) 1,500 mg PO BID [facility] Last Admin: 10/21/16 21:53 Dose: 1,500 mg [facility]othy[facility]) [facility] Last Admin: 10/22/16 08:18 Dose: 125 mcg Naloxone HCl (Narcan) 0.1 mg IV Q2MIN PRN PRN Reason: Opiate Reversal Nitroglycerin (Nitrostat) 0.4 mg SL Q5M PRN PRN Reason: Chest Pain Ondansetron HCl (Zofran) 4 mg IV Q4HP PRN PRN Reason: Nausea And Vomiting Oxycodone HCl (Roxicodone) 2.5 - 5 mg PO Q4HP PRN PRN Reason: Pain Pantoprazole Sodium (Protonix) 40 mg PO QAMAC [facility] Last Admin: 10/22/16 08:18 Dose: 40 mg Venlafaxine HCl (Effexor Xr) 150 mg PO DAILY [facility] Last Admin: 10/21/16 08:05 Dose: 150 mg Medical - PN: A/P - Time Spent With Patient Total time spent is greater than 50% in coordination of care (as documented) at patient's floor/unit and/or counseling patient: (1) Severe sepsis Status: Acute Current Visit: Yes (2) Urinary tract infection Status: Acute Current Visit: Yes (3) Acute kidney injury Status: Acute Current Visit: Yes (4) Septic encephalopathy Status: Acute Current Visit: Yes (5) Hypertension Status: Acute Current Visit: Yes (6) Seizure disorder Status: Acute Current Visit: Yes (7) Community acquired pneumonia Status: Acute Current Visit: Yes (8) Acute respiratory failure with hypoxia Status: Acute Current Visit: Yes - Narrative A/P Narrative: CAP- Treat with rocephin and zithromax, get urine legionella, mycoplasma antibodies, cultures neg so far, CXR not suggestive of pna, but pt does have cough, She needs rocephin for UTI too, will continue zithromax for now given cough and suspected pna sepsis- Much improved wBC still high,. CHF: Trop neg, bnp elevated, CXR suggestive of pulm edema, repeat CXR shows improvement , consider bipap if needed. echo with low normal lvef. Lasix prn. Will give one more dose today of lasix 40mg Acute hypoxic resp failure- Oxygen supplementation, Consider bipap if needed. UTI- Await Urine culture, rocephin should cover this. Seizure disorder- Resume home meds Keppra and lamotrigine - seizure and fall precautions HTN- Hold home bp medication given bp normal in ER, lasix for pulm edema, monitor closely . Pain management- Low dose oxycodone now, given hydrocodone was causing confusion Diet regular Code full DVT lovenox sq Medical - PN: Qual - VTE Deep Vein Thrombosis/Pulmonary Embolism Present on Admission: No
[2016-10-22] MEDS ORDERED: FUROSEMIDE 40 MG/4 ML VIAL IV ONE (09:27)
[2016-10-22] MEDS: cefTRIAXone 2 GM in DEXTROSE 5% IN WATER 50 ML IV SCH (09:29)
[2016-10-22] MEDS: AZITHROMYCIN 250 MG TABLET PO SCH (09:30)
[2016-10-22] MEDS: lamoTRIgine 100 MG TABLET PO SCH ×2 (09:31→20:57)
[2016-10-22] MEDS: VENLAFAXINE 150 MG CAP.XL.24H PO SCH (09:31)
[2016-10-22] MEDS: levETIRAcetam 500 MG TABLET PO SCH ×2 (09:31→20:58)
[2016-10-22] MEDS: ENOXAPARIN 30 MG/0.3 ML SYRINGE SQ SCH (09:31)
[2016-10-22] MEDS ORDERED: NALOXONE HCL 0.4 MG/ML VIAL IV PRN (12:09)
[2016-10-22] MEDS ORDERED: oxyCODONE HCL 5 MG TABLET PO PRN (12:09)
[2016-10-22] MEDS ORDERED: NITROGLYCERIN 0.4 MG TAB.SUBL SL PRN (12:09)
[2016-10-22] MEDS ORDERED: ACETAMINOPHEN 325 MG TABLET PO PRN (12:09)
[2016-10-22] MEDS ORDERED: BISACODYL 10 MG SUPP.RECT PR PRN (12:09)
[2016-10-22] MEDS ORDERED: ONDANSETRON 4 MG/2 ML VIAL IV PRN (12:09)
[2016-10-22] MEDS ORDERED: POTASSIUM CHLORIDE 20 MEQ TABLET PO ONE (12:16)
[2016-10-22] MEDS: busPIRone 5 MG TABLET PO SCH (20:56)
[2016-10-22] MEDS: DOCUSATE SODIUM 100 MG CAPSULE PO SCH (20:58)
[2016-10-22] MEDS: ACETAMINOPHEN 500 MG TABLET PO PRN (21:30)
[2016-10-22] MEDS: diphenhydrAMINE 25 MG CAPSULE PO PRN (21:30)
[2016-10-23] MEDS: IPRATROPIUM/ALBUTEROL 3 ML AMPUL.NEB NEB SCH ×6 (03:37→23:24)
[2016-10-23 07:19] LABS: Basophils # (Auto) 0 K/mcL (0.0-0.3); Basophils % (Auto) 0.3 % (0.0-2.0); Eosinophils # (Auto) 0.5 K/mcL (0.0-0.7); Eosinophils % (Auto) 3.4 % (0.0-7.0); Granulocytes % (Auto) 74.7 % (38.0-78.0); Lymphocytes # (Auto) 1.3 K/mcL (1.5-4.8); Lymphocytes % (Auto) 8.8 % (15.5-49.0); Mean Cell Volume 80.6 fL (80.0-100.0); Mean Corpuscular HGB Conc 30.5 g/dL (31.0-36.0); Mean Corpuscular Hemoglobin 24.5 pg (26.0-34.0); Monocytes # (Auto) 1.9 K/mcL (0.1-0.9); Monocytes % (Auto) 12.8 % (1.0-9.0); Platelet Count 278 K/mcL (140-440)
[2016-10-23] MEDS: PANTOPRAZOLE 40 MG TABLET PO SCH (07:22)
[2016-10-23] MEDS: LEVOTHYROXINE 125 MCG TABLET PO SCH (07:23)
[2016-10-23 07:28] LABS: ALT/SGPT 16 U/l (0-40); Albumin 2.7 gm/dL (3.2-5.2); Albumin/Globulin Ratio 0.7 (1.0-2.3); Alkaline Phosphatase 62 U/L (39-117); Bilirubin,Direct < 0.2 mg/dL (0.0-0.3); Blood Urea Nitrogen 30 mg/dl (8-23); Gamma Glutamyl Transpeptidase 29 U/L (5-36); Magnesium 1.9 mg/dL (1.6-2.5); Phosphorous 3.1 mg/dL (2.7-4.5); Uric Acid 6.5 mg/dL (2.5-8.0)
[2016-10-23] MEDS: BISACODYL 5 MG TABLET PO PRN (09:19)
[2016-10-23] MEDS: levETIRAcetam 500 MG TABLET PO SCH ×2 (09:20→20:25)
[2016-10-23] MEDS: VENLAFAXINE 150 MG CAP.XL.24H PO SCH (09:21)
[2016-10-23] MEDS: AZITHROMYCIN 250 MG TABLET PO SCH (09:21)
[2016-10-23] MEDS: lamoTRIgine 100 MG TABLET PO SCH ×2 (09:21→20:25)
[2016-10-23] MEDS: cefTRIAXone 2 GM in DEXTROSE 5% IN WATER 50 ML IV SCH (09:22)
[2016-10-23] MEDS: ENOXAPARIN 30 MG/0.3 ML SYRINGE SQ SCH (09:22)
[2016-10-23] MEDS: DOCUSATE SODIUM 100 MG CAPSULE PO SCH ×2 (09:22→20:25)
--- NOTE | 2016-10-23 10:16 | Internal Med Progress Note ---
Medical - PN: Subj Patient information: Note initiated : 10/23/16 at 10:12 am Service Date, if different from initiated Date: [] Patient: Gloria Rose a 81 y/o F admitted on 10/21/16 for SOB/Sepsis, Pnemonia, UTI, Hypoxic Resp Failure. Chief Complaint: [] Interval history: 10/20 : Ms. Rose is a 81 year old female who lives with her in [place] presents to the ER from [place] via ambulance, with not feeling well x 3-5 days. The patient had a fracture of her ankle nearly 2 weeks ago, and was placed in cast and on hydrocodone for pain relief. This medication made her very sick and loopy. The patient had an episode of vomiting approximately 12 days ago, and has not been feeling well on and off. The patient over the last 3-5 days has gradually deteriorated, with cough, with no expectoration, shortness of breath, fever, chills and rigors, fatigue, sweating, and generalized malaise. No aggravating or releving factors, progressively has gotten worse. She had some nausea this evening. The patient was confused today and not herself, with tachypena was brought to [facility], where it was difficult to get IV access, therefore pt was sent here. since Yesterday the patient has also noticed increased frequency of urination, foul smelling urine, and has been taking otc azo for same. In the ER here she presented with tachypnea, diaphoresis, sweating, elevated blood pressure. She was given IV fluids, X ray showed es pna as pe ER physician, UA suggestive of UTI. She was therefore admitted to the hospital for further management. placed on zithromax and rocephin for UTI and PNA> 10/21: Pt this AM notoed to be short of breath again, did note some chest discomfort. the patent was also febrile with elevated blood pressures. She was given NTG, ASA and IV lasix, CXR shows worsening pulmonary edema. The patient responded to treatment well. Trop is neg, ck mb is lower than yesterday, BNP is high but better than yesterday. Given her high fever of 102, another set of blood culture ordered. The patient is still somewhat confused. But denies any other complaints. CXR is neg for pna, so its likely that she only has a UTI with sepsis. Will get echo today, repeat EKG. Closely monitor on tele labs show normal lactate, elevated wbc still. Creat mildly improved to 1.3. Will place [place] for good monitoring of urine output. Will consider bipap therapy if needed. 10/22: pt seen examined, doing much better, no fever or chills, no overnight seizures reported, X ray this AM shwos possible infiltrate? Her WBC count is better but still high at 20K. Her mental status is better today X ray shows improvement in pulmonary infiltrates Echo shows low normal LVEF, and LVH, and signs of fluids overload. Continue IV antibiotics for PNA and UTI. The patient Alk phos was high today, USG liver done, cbd is normal size, GB not visualized. Pt has not reported abdominal pain. 10/23- patient doing well. On 2 L oxygen. No overnight fever chills nausea vomiting. No concerns per staff. Ongoing physical therapy. await SNF transfer in 24 hours. at bedside. white count at 14,900. Downtrending.. He continue antibiotic coverage. - Constitutional Vitals: Vital Signs Temp Pulse Resp BP Pulse Ox 98.2 F 80 16 125/59 94 10/23/16 07:28 10/23/16 07:44 10/23/16 08:47 10/23/16 07:28 10/23/16 08:47 Period Temp Pulse Resp BP Sys/Morejon Pulse Ox Last 24 Hr 97.2 F-98.6 F 74-88 16-28 120-177/59-77 91-98 Intake and Output 10/22/16 10/23/16 10/23/16 21:59 05:59 13:59 Intake Total 360 / 360 400 / 400 240 / 240 Output Total 200 / 200 450 / 450 Balance 160 / 160 -50 / -50 240 / 240 Weight 250 lb Intake & Output: Intake & Output 10/22/16 10/23/16 10/23/16 21:59 05:59 13:59 Intake Total 360 / 360 400 / 400 240 / 240 Output Total 200 / 200 450 / 450 Balance 160 / 160 -50 / -50 240 / 240 Weight 250 lb Intake: Oral 360 / 360 400 / 400 240 / 240 Output: Urine Catheter Amount 200 / 200 450 / 450 Other: Meal Dinner Breakfast Percent of Meal Consumed 100% 75% Feeding Ability Independent Assist with Tray Set Up # Bowel Movements 0 General appearance: cooperative, no acute distress Exam: on 2 L oxygen Alert and oriented Nonlabored breathing no anxiety Medical - PN: Obj Da - Labs CBC & Chem 7: 10/23/16 06:10 10/23/16 06:10 Labs: Abnormal Lab Results 10/23/16 10/23/16 10/22/16 06:10 06:10 03:50 WBC 14.9 H Hgb 10.3 L Hct 33.8 L MCH 24.5 L MCHC 30.5 L RDW 17.0 H MPV Gran % Lymph % (Auto) 8.8 L [place] % (Auto) 12.8 H Gran # 11.1 H Lymph # 1.3 L [place] # 1.9 H Chloride Carbon Dioxide Anion Gap BUN 30 H 24 H Creatinine 1.4 H 1.3 H Glucose 121 H Calcium 8.4 L AST Alkaline Phosphatase 235 H Lactate Dehydrogenase 290 H 482 H CK-MB (CK-2) NT-Pro-B Natriuret Pep Albumin 2.7 L 2.6 L Globulin 3.9 H Albumin/Globulin Ratio 0.7 L 0.7 L 10/22/16 10/21/16 10/21/16 03:50 08:25 08:25 WBC 20.9 H Hgb 10.5 L Hct 34.0 L MCH 25.3 L MCHC 30.9 L RDW 17.1 H MPV Gran % 81.9 H Lymph % (Auto) 6.0 L [place] % (Auto) 11.1 H Gran # 17.1 H Lymph # 1.3 L [place] # 2.3 H Chloride Carbon Dioxide Anion Gap BUN Creatinine Glucose Calcium AST Alkaline Phosphatase Lactate Dehydrogenase CK-MB (CK-2) 6.4 H NT-Pro-B Natriuret Pep 3482.0 H Albumin Globulin Albumin/Globulin Ratio 10/21/16 10/21/16 07:37 03:55 WBC 23.9 H Hgb 11.4 L Hct MCH 25.0 L MCHC 30.9 L RDW 17.3 H MPV 7.2 L Gran % 95.2 H Lymph % (Auto) 1.9 L [place] % (Auto) Gran # 22.8 H Lymph # 0.4 L [place] # Chloride 94 L Carbon Dioxide 20 L Anion Gap 19.0 H BUN Creatinine 1.3 H Glucose Calcium AST 48 H Alkaline Phosphatase Lactate Dehydrogenase 393 H CK-MB (CK-2) NT-Pro-B Natriuret Pep Albumin 2.7 L Globulin 3.8 H Albumin/Globulin Ratio 0.7 L Meds: Medications Acetaminophen (Tylenol) 650 mg PO Q6HP PRN PRN Reason: PAIN/FEVER > 101 Last Admin: 10/23/16 03:37 Dose: 650 mg Acetaminophen (Tylenol) 500 mg PO HSP PRN PRN Reason: PAIN/FEVER > 101 Last Admin: 10/22/16 21:30 Dose: 500 mg Albuterol/Ipratropium (Duoneb) 3 ml NEB Q4HRT [facility] Last Admin: 10/23/16 06:50 Dose: 3 ml Azithromycin (Zithromax) 250 mg PO DAILY [facility] Stop: 10/24/16 09:01 Last Admin: 10/23/16 09:21 Dose: 250 mg Bisacodyl (Dulcolax) 10 mg PO DAILYP PRN PRN Reason: Constipation Last Admin: 10/23/16 09:19 Dose: 10 mg Bisacodyl (Dulcolax) 10 mg [place] Q3DP PRN PRN Reason: Constipation Buspirone HCl (Buspar) 10 mg PO HS [facility] Last Admin: 10/22/16 20:56 Dose: 10 mg Diphenhydramine HCl (Benadryl) 25 mg PO HSP PRN PRN Reason: Allergic Symptoms Last Admin: 10/22/16 21:30 Dose: 25 mg Docusate Sodium (Colace) 100 mg PO BID [facility] Last Admin: 10/23/16 09:22 Dose: 100 mg Enoxaparin Sodium (Lovenox) 30 mg SQ DAILY [facility] Last Admin: 10/23/16 09:22 Dose: 30 mg Ceftriaxone Sodium 2 gm/ (Dextrose) 50 mls @ 100 mls/hr IV Q24H [facility] Last Admin: 10/23/16 09:22 Dose: 100 mls/hr Lamotrigine (Lamictal) 150 mg PO BID [facility] Last Admin: 10/23/16 09:21 Dose: 150 mg Levetiracetam (Keppra) 1,500 mg PO BID [facility] Last Admin: 10/23/16 09:20 Dose: 1,500 mg Levothyroxine Sodium (Synthroid) 125 mcg PO QAMAC [facility] Last Admin: 10/23/16 07:23 Dose: 125 mcg Naloxone HCl (Narcan) 0.1 mg IV Q2MIN PRN PRN Reason: Opiate Reversal Nitroglycerin (Nitrostat) 0.4 mg SL Q5M PRN PRN Reason: Chest Pain Ondansetron HCl (Zofran) 4 mg IV Q4HP PRN PRN Reason: Nausea And Vomiting Oxycodone HCl (Roxicodone) 2.5 - 5 mg PO Q4HP PRN PRN Reason: Pain Pantoprazole Sodium (Protonix) 40 mg PO QAMAC [facility] Last Admin: 10/23/16 07:22 Dose: 40 mg Venlafaxine HCl (Effexor Xr) 150 mg PO DAILY [facility] Last Admin: 10/23/16 09:21 Dose: 150 mg Medical - PN: A/P - Time Spent With Patient Total time spent is greater than 50% in coordination of care (as documented) at patient's floor/unit and/or counseling patient: 25 - 35 minutes (1) Community acquired pneumonia Status: Acute Assessment and plan: Assessment- 81-year-old with UTI/community-acquired pneumonia and severe sepsis * community acquired pneumonia-clinical improvement noted antibiotic coverage. Improving Respiratory status. continue antibiotics through 10/28 * hypoxic respiratory failure-clinically improvement noted on 2 L oxygen. * complicated gNR UTI-on antibiotic coverage * severe sepsis-downtrending leukocytosis from 20,000-14.9. And stable hemodynamics * History of congestive heart failure-mild pulmonary edema. Improving on serial imaging. Echo low normal EF. Continue as needed Lasix * History of seizure disorder-continue Keppra/lamotrigine * Hypertension restart home meds * Pain management on low-dose opioids * Full CODE STATUS Plan * Continue antibiotic coverage * aggressive physical therapy * Existing medical condition management as above * possible discharge to SNF in 24 hours Current Visit: Yes Medical - PN: Qual - VTE Deep Vein Thrombosis/Pulmonary Embolism Present on Admission: No
[2016-10-23] MEDS: busPIRone 5 MG TABLET PO SCH (20:25)
[2016-10-23] MEDS: diphenhydrAMINE 25 MG CAPSULE PO PRN (20:46)
[2016-10-23] MEDS: ACETAMINOPHEN 500 MG TABLET PO PRN (20:46)
[2016-10-24] MEDS: IPRATROPIUM/ALBUTEROL 3 ML AMPUL.NEB NEB SCH ×3 (03:09→10:48)
[2016-10-24 06:22] LABS: Basophils # (Auto) 0 K/mcL (0.0-0.3); Basophils % (Auto) 0.4 % (0.0-2.0); Eosinophils # (Auto) 0.7 K/mcL (0.0-0.7); Eosinophils % (Auto) 5.5 % (0.0-7.0); Granulocytes % (Auto) 70.2 % (38.0-78.0); Lymphocytes # (Auto) 1.6 K/mcL (1.5-4.8); Lymphocytes % (Auto) 12.7 % (15.5-49.0); Mean Cell Volume 82.5 fL (80.0-100.0); Mean Corpuscular HGB Conc 30.6 g/dL (31.0-36.0); Mean Corpuscular Hemoglobin 25.3 pg (26.0-34.0); Monocytes # (Auto) 1.4 K/mcL (0.1-0.9); Monocytes % (Auto) 11.2 % (1.0-9.0); Platelet Count 341 K/mcL (140-440); RBC 4.04 M/mcL (4.00-5.20); Red Cell Distribution Width 17.1 % (11.5-14.5)
[2016-10-24 06:53] LABS: ALT/SGPT 17 U/l (0-40); Albumin 2.6 gm/dL (3.2-5.2); Albumin/Globulin Ratio 0.7 (1.0-2.3); Alkaline Phosphatase 64 U/L (39-117); Bilirubin,Direct < 0.2 mg/dL (0.0-0.3); Blood Urea Nitrogen 19 mg/dl (8-23); Gamma Glutamyl Transpeptidase 33 U/L (5-36); Magnesium 1.9 mg/dL (1.6-2.5); Phosphorous 2.6 mg/dL (2.7-4.5); Uric Acid 5.7 mg/dL (2.5-8.0)
[2016-10-24] MEDS: PANTOPRAZOLE 40 MG TABLET PO SCH (07:21)
[2016-10-24] MEDS: LEVOTHYROXINE 125 MCG TABLET PO SCH (07:21)
[2016-10-24] MEDS: lamoTRIgine 100 MG TABLET PO SCH (08:27)
[2016-10-24] MEDS: VENLAFAXINE 150 MG CAP.XL.24H PO SCH (08:27)
[2016-10-24] MEDS: AZITHROMYCIN 250 MG TABLET PO SCH (08:28)
[2016-10-24] MEDS: ENOXAPARIN 30 MG/0.3 ML SYRINGE SQ SCH (08:28)
[2016-10-24] MEDS: levETIRAcetam 500 MG TABLET PO SCH (08:28)
[2016-10-24] MEDS: DOCUSATE SODIUM 100 MG CAPSULE PO SCH (08:28)
[2016-10-24] MEDS: BISACODYL 5 MG TABLET PO PRN (08:50)
[2016-10-24] MEDS: cefTRIAXone 2 GM in DEXTROSE 5% IN WATER 50 ML IV SCH (08:50)
--- NOTE | 2016-10-24 11:31 | Discharge Summary ---
Medical - DS: Prov Patient information: Note initiated : 10/24/16 at 11:29 am Service Date, if different from initiated Date: [] Patient: Gloria Rose 81 y/o F admitted on 10/21/16 for SOB/Sepsis, Pnemonia, UTI, Hypoxic Resp Failure. Chief Complaint: [] Date of admission: 10/21/16 02:50 Discharge date: 10/24/16 Primary care physician: [f_Reg Prim Care Provider] Medical - DS: Meds - Discharge Medications Prescriptions: Cefdinir 300 mg PO BID #10 capsule Active and Home Medications: Home Medications HYDROcodone/APAP 5/325MG [[place] 5/325Mg] 1 tab PO Q5-6HP PRN 10/20/16 [History Confirmed 10/21/16 Last Taken Unknown] Levothyroxine [Synthroid] 125 mcg PO DAILY 10/20/16 [History Confirmed 10/20/16 Last Taken Unknown] Omeprazole 40 mg PO DAILY 10/20/16 [History Confirmed 10/20/16 Last Taken Unknown] Venlafaxine HCl [Effexor Xr] 150 mg PO DAILY 10/20/16 [History Confirmed Last Taken Unknown] amLODIPine [Norvasc] 5 mg PO DAILY 10/20/16 [History Confirmed 10/21/16 Last Taken Unknown] busPIRone [Buspar] 10 mg PO HS 10/20/16 [History Confirmed 10/20/16 Last Taken Unknown] lamoTRIgine [Lamictal] 150 mg PO BID 10/20/16 [History Confirmed 10/20/16 Last Taken Unknown] levETIRAcetam [Levetiracetam] 1,500 mg PO BID 10/20/16 [History Confirmed Last Taken Unknown] Cefdinir 300 mg PO BID #10 capsule 10/24/16 [Rx Last Taken Unknown] Medical - DS: Hosp Hospital course: DISCHARGE DIAGNOSIS * community acquired pneumonia-clinical improvement noted antibiotic coverage. continue oral third generation cephalosporin through 10/28. Transfer to SNF * hypoxic respiratory failure-clinically improvement noted on 1 L oxygen. * complicated Escherichia coli UTI-clinically resolved on antibiotics. Pansensitive * Severe sepsis-downtrending leukocytosis from 20,000-14.9. And stable hemodynamics * History of congestive heart failure-mild pulmonary edema. Improving on serial imaging. Echo low normal EF. Continue as needed Lasix * History of seizure disorder-continue Keppra/lamotrigine * Hypertension restart home meds * Pain management on low-dose opioids Brief hospital course 10/20 : Ms. Rose is a 81 year old female who lives with her in [place] presents to the ER from [place] via ambulance, with not feeling well x 3-5 days. The patient had a fracture of her ankle nearly 2 weeks ago, and was placed in cast and on hydrocodone for pain relief. This medication made her very sick and loopy. The patient had an episode of vomiting approximately 12 days ago, and has not been feeling well on and off. The patient over the last 3-5 days has gradually deteriorated, with cough, with no expectoration, shortness of breath, fever, chills and rigors, fatigue, sweating, and generalized malaise. No aggravating or releving factors, progressively has gotten worse. She had some nausea this evening. The patient was confused today and not herself, with tachypena was brought to [facility], where it was difficult to get IV access, therefore pt was sent here. since Yesterday the patient has also noticed increased frequency of urination, foul smelling urine, and has been taking otc azo for same. In the ER here she presented with tachypnea, diaphoresis, sweating, elevated blood pressure. She was given IV fluids, X ray showed es pna as pe ER physician, UA suggestive of UTI. She was therefore admitted to the hospital for further management. placed on zithromax and rocephin for UTI and PNA> 10/21: Pt this AM notoed to be short of breath again, did note some chest discomfort. the patent was also febrile with elevated blood pressures. She was given NTG, ASA and IV lasix, CXR shows worsening pulmonary edema. The patient responded to treatment well. Trop is neg, ck mb is lower than yesterday, BNP is high but better than yesterday. Given her high fever of 102, another set of blood culture ordered. The patient is still somewhat confused. But denies any other complaints. CXR is neg for pna, so its likely that she only has a UTI with sepsis. Will get echo today, repeat EKG. Closely monitor on tele labs show normal lactate, elevated wbc still. Creat mildly improved to 1.3. [address] [place] for good monitoring of urine output. Will consider bipap therapy if needed. 10/22: pt seen examined, doing much better, no fever or chills, no overnight seizures reported, X ray this AM shwos possible infiltrate? Her WBC count is better but still high at 20K. Her mental status is better today X ray shows improvement in pulmonary infiltrates Echo shows low normal LVEF, and LVH, and signs of fluids overload. Continue IV antibiotics for PNA and UTI. The patient Alk phos was high today, USG liver done, cbd is normal size, GB not visualized. Pt has not reported abdominal pain. 10/23- patient doing well. On 2 L oxygen. No overnight fever chills nausea vomiting. No concerns per staff. Ongoing physical therapy. await SNF transfer in 24 hours. at bedside. white count at 14,900. Downtrending.. He continue antibiotic coverage. 10/24- patient doing well. No overnight events. No concerns per staff. No fever chills nausea vomiting. On 1 L oxygen. Afebrile. Transfer to SNF with continued posthospitalization rehabilitation. Continue antibiotics through 10/28 Discharge diagnosis: . - Time Spent with Patient Total time spent providing and/or coordinating discharge services: Greater than 30 minutes Medical - DS: Exam - Constitutional Vitals: Vital Signs Temp Pulse Pulse Resp BP BP Pulse Ox 10/24/16 11:02 73 16 95 10/24/16 11:00 76 16 10/24/16 07:32 99 10/24/16 07:31 78 12 99 10/24/16 07:29 80 16 10/24/16 07:28 24 94 10/24/16 07:26 97.8 F 24 145/79 94 10/24/16 03:27 98.5 F 78 24 152/75 93 10/24/16 00:00 98.0 F 79 24 157/75 95 10/23/16 20:00 97.8 F 82 24 155/75 99 10/23/16 19:22 86 24 10/23/16 19:16 97 10/23/16 15:43 84 24 10/23/16 15:41 98.5 F 84 22 168/91 94 10/23/16 11:41 98 F 73 22 162/81 96 Intake and Output 0310/24/16 10/24/16 21:59 05:59 13:59 Intake Total 980 / 980 100 / 100 120 / 120 Output Total 200 / 200 700 / 700 Balance 780 / 780 -600 / -600 120 / 120 Intake: Oral 980 / 980 100 / 100 120 / 120 Output: Urine Catheter Amount 200 / 200 700 / 700 Other: Meal Dinner Breakfast Percent of Meal Consumed 100% 50% Feeding Ability Independent Independent Weight 250 lb 8 oz Medical - DS: Data Labs on day of discharge: Labs from last 24 hours 10/24/16 10/24/16 05:15 05:15 WBC 12.8 H RBC 4.04 Hgb 10.2 L Hct 33.3 L MCV 82.5 MCH 25.3 L MCHC 30.6 L RDW 17.1 H Plt Count 341 MPV 7.2 L Gran % 70.2 Lymph % (Auto) 12.7 L [place] % (Auto) 11.2 H Eos % (Auto) 5.5 Baso % (Auto) 0.4 Gran # 9.0 H Lymph # 1.6 [place] # 1.4 H Eos # 0.7 Baso # 0 Sodium 140 Potassium 4.0 Chloride 101 Carbon Dioxide 26 Anion Gap 13.0 BUN 19 Creatinine 1.1 GFR Calculation 48 Glucose 108 H Uric Acid 5.7 Calcium 8.7 Phosphorus 2.6 L Magnesium 1.9 Total Bilirubin 0.2 Direct Bilirubin < 0.2 GGT 33 AST 27 ALT 17 Alkaline Phosphatase 64 Lactate Dehydrogenase 228 Total Protein 6.6 Albumin 2.6 L Globulin 4.0 H Albumin/Globulin Ratio 0.7 L Triglycerides 82 Preliminary micro results at discharge 10/21/16 08:55 Blood Culture - Preliminary Blood 10/21/16 09:00 Blood Culture - Preliminary Blood Medical - DS: A/P - Patient/Caregiver Discharge Instructions Activity: increase activity as tolerated Diet: Regular Diet Additional Instructions: Follow-up PCP in 5 days I recommend SNF physician to check CBC BMP UA as a posthospital follow-up and Chest x-ray in 1 week. Antibiotics for additional 5 days oxygen as needed. Titrate sats 95% Please schedule pulmonary function test as outpatient in 3 weeks Continue aggressive bowel regimen to prevent constipation Continue fall precautions Continue aggressive PT OT at [facility] All meals on chair sitting upright at 90 degrees to prevent aspiration Return to ER if worsening fever chills shortness of breath, diarrhea, bleeding Review risk and side effect profile of medications including antibiotics. Side effect may include mild to severe reaction including rash, diarrhea, cdiff and even which can be prevented by close follow-up with PCP and monitoring for side effects Refrain from smoking and alcohol Continue diet and activity as advised Discussed importance of medication adherence Please review medication list with patient prior to discharge Please schedule follow-up with PCP/Providers prior to discharge and provide printouts CC- PCP Prescriptions: Cefdinir 300 mg PO BID #10 capsule - Problem Maintenance (1) Community acquired pneumonia Status: Acute - Follow up Plan Follow up with: Mayo Clayton, RN [Primary Care Provider] - (Please call/schedule follow up appointment.) Disposition: Xfer SNF Prognosis: Fair Rehab Potential: Fair I certify that the patient requires SNF services: Yes Overall status at discharge: patient is progressing back to baseline Medical - DS: Qual - VTE Deep Vein Thrombosis/Pulmonary Embolism Present on Admission: No
[2016-10-25 15:09] LABS: M. Pneumoniae IGG 0.95 ISR
== END 2016-10-24 14:25 | DRG 871 ==
LOC: ED 23:14 → ICU 10-21 02:50 → MEDSUR 10-22 16:30
PROVIDERS: ADMIT Internal Medicine; ATTEND Internal Medicine

== ENCOUNTER 2020-08-26 06:54 | Inpatient (IN) ==
--- NOTE | 2020-08-26 08:16 | Emergency Department Note ---
SOB HPI General Chief Complaint: Shortness of Breath/Dyspnea Stated Complaint: SOB Time Seen by Provider: 08/26/20 07:17 Source: EMS Mode of arrival: EMS Limitations: physical limitation History of Present Illness HPI Narrative: Narrative: Mrs. Rose comes from [facility] by EMS after he reported increasing shortness of breath over 5 to 6 hours. She says she has had it some off and on. She describes some coughing and some phlegm. She does not use oxygen at [facility]. She indicates that the shortness of breath she has had off-and-on in the past but it seems to have worsened lately. She denies runny nose or sore throat or change in her taste or smell. She denies chest pain current nausea. She did have nausea couple of days in the past. She is a little bit dizzy some but suggest that this might be more chronic than current new. No known prior history of A. fib. DNR per documentation from [facility]. Related Data Home Medications Medication Instructions Recorded Confirmed amlodipine 5 mg PO DAILY 10/20/16 10/21/16 buspirone 10 mg PO HS 10/20/16 10/20/16 hydrocodone-acetaminophen 1 tab PO Q5-6HP PRN 10/20/16 10/21/16 lamotrigine 150 mg PO BID 10/20/16 10/20/16 levetiracetam 1,500 mg PO BID 10/20/16 10/20/16 levothyroxine 125 mcg PO DAILY 10/20/16 10/20/16 omeprazole 40 mg PO DAILY 10/20/16 10/20/16 venlafaxine [Effexor XR] 150 mg PO DAILY 10/20/16 10/20/16 Previous Rx's Medication Instructions Recorded cefdinir 300 mg PO BID #10 cap 10/24/16 lamotrigine 150 mg PO BID #10 tab 03/06/17 levetiracetam 1,500 mg PO BID #10 tab 03/06/17 ciprofloxacin HCl 500 mg PO BID #14 tab 12/06/19 hydrocodone-acetaminophen 1 each PO Q4-6HP PRN #15 tab 12/06/19 Allergies Allergy/AdvReac Type Severity Reaction Status Date / Time No Known Drug Allergies Allergy Verified 08/26/20 07:01 Review of Systems ROS ROS Narrative: Narrative: No vomiting diarrhea or constipation No dysuria No headache Some swelling chronically in her left lower extremity from a previous fracture. Has chronic anxiety and depression. COUNTS INCLUDE 234 BEDS AT THE [facility] Narrative Patient History Narrative: Narrative: Medical/Surgical/Family History All Active Problems (Updated 08/26/20 @ 09:08 by Brandin Bishop DO) Acute on chronic congestive heart failure (Acute) Hypoxia (Acute) Hypomagnesemia (Acute) Hypocalcemia (Acute) Hypothyroidism, acquired (Acute) Congestive heart failure (Acute) Hypertension (Acute) Seizure disorder (Acute) Medical History (Updated 08/26/20 @ 09:08 by Brandin Bishop DO) Acute kidney injury (Resolved) Acute respiratory failure with hypoxia (Resolved) Community acquired pneumonia (Resolved) Congestive heart failure (Acute) Fall (Inactive) Hypertension (Acute) Hypothyroidism, acquired (Acute) Seizure disorder (Acute) Septic encephalopathy (Resolved) Severe sepsis (Resolved) Urinary tract infection (Resolved) Surgical History (Updated 08/26/20 @ 07:40 by Brandin Bishop DO) History of cataract surgery (Acute) History of hysterectomy (Acute) Social History Smoking Status: Never smoker Exam Narrative Narrative: Narrative: General Limitations: physical limitation General appearance: Present alert, in no apparent distress, nontoxic, obese and other (Rather pleasant and interactive.); Absent grimacing, lethargic, obtunded and sleepy Head Head: Present atraumatic and normocephalic Eye Eye: Present normal appearance, PERRL and EOMI ENT ENT: Present normal oropharynx and mucous membranes moist Neck Neck: Present trachea midline; Absent lymphadenopathy and thyromegaly Chest Chest: Present symmetric chest wall rise Respiratory Respiratory: Present normal lung sounds bilaterally; Absent respiratory distress, rales/crackles, wheezes, stridor, accessory muscle use and prolonged expiratory phase Cardiovascular Cardiovascular: Present regular rate, tachycardia (Mild) and irregular rhythm; Absent systolic murmur and diastolic murmur Adbominal Abdominal: Present soft; Absent distention, tenderness, guarding, rebound, rigidity, organomegaly and mass Extremities Extremities: Present pedal edema (Nonpitting enlargement mildly left ankle, lower leg, foot compared to the right); Absent pretibial edema, calf tenderness and cyanosis Back Back: Absent CVA tenderness (R), CVA tenderness (L) and spinous process tenderness Neurological Neurological: Present alert and oriented X3 Psychiatric Psychiatric: Present normal affect, polite and pleasant; Absent depressed, agitated, anxious and poor eye contact Skin Skin: Present warm (WNL) and dry; Absent cyanosis and pallor Course Vital Signs Vital signs: Vital Signs Temperature 97.2 F 08/26/20 06:55 Pulse Rate 100 H 08/26/20 06:55 Respiratory Rate 33 H 08/26/20 06:55 Blood Pressure 130/69 08/26/20 06:55 Pulse Oximetry (%) 87 L 08/26/20 06:55 Temperature 97.2 F 08/26/20 06:55 Pulse Rate 109 H 08/26/20 12:17 Respiratory Rate 27 H 08/26/20 12:17 Blood Pressure 156/79 08/26/20 12:17 Pulse Oximetry (%) 92 08/26/20 12:17 MDM MDM Narrative Medical decision making narrative: Narrative: 7:40 AM - acute shortness of breath in the past hours or gradually worsening. Appears to be new onset A. fib. DNR per documentation. I will discuss with son. Has some crackles in her bases so there is a CHF component possible and/or pneumonia. Only being treated for UTI. ACS and general metabolic and infectious work-up. Lactic acid venous already sent. Previous EKG from December 2019 is normal sinus rhythm with a rate around 60. Today's EKG with a rate of 110 suggests atrial fibrillation. 7:54 AM - ABG demonstrates pH mildly low at 7.29, PCO2 mildly elevated at 50, PO2 130, base excess -3.0, slightly low, saturation 99%, bicarb 24. This is on 4 L. 8:10 AM -space for TSH added to her labs. 8:23 AM - chest x-ray suggests diffuse pulmonary edema. Official report pending. Because of this 20 mg furosemide IV ordered. 9:02 AM - labs include a mildly elevated white count at 12.9, no anemia which she has had some of in the past. Lactic acid 0.8 Procalcitonin unremarkable at 0.11. BNP 3153 similar to previous. Pending is urinalysis, TSH, magnesium, CMP. 9:05 AM - CMP comes back with labs as below, unremarkable electrolytes except carbon dioxide is low at 18, anion gap elevated at 22. Calcium is majorly low at 5.7. Magnesium is significantly low at 0.6 Albumin trace low at 3.1, globulin e.4.1(2.2-3.7). We will order a magnesium rider and calculate calcium based on proteins. 9:07 AM - chest x-ray "congestive heart failure. Superimposed pneumonia cannot be excluded." 11:12 AM - UA comes back with positive leukocyte esterase, greater than 182 WBCs per high-power field, no squamous epis and no bacteria. Culture has been ordered. This probably represents asymptomatic bacteriuria/pyuria (white blood cells in the urine), i.e., could be primarily colonization appearance. 11:51 AM - I spoke with Dr. Mat Crow, obstetrics gyn physician, who recommends medical admission for management of CHF and hypoxia, heart rate control with a beta- mary diuresis. Major aggressive interventions not indicated but could be considered long-term depending on response. 12:18 PM - I spoke with Dr. Félix Puente, hospitalist, who will accept this patient. Order for admit put in at his request. Lab Data Result diagrams: 08/26/20 07:35 08/26/20 07:35 Labs: Lab Results 08/26/20 08/26/20 08/26/20 Range/Units 07:35 07:35 07:35 WBC 12.9 H (4.5-11.0) K/mcL RBC 4.43 (4.00-5.20) M/mcL Hgb 12.4 (12.0-15.0) g/dL Hct 39.8 (36.0-48.0) % MCV 89.8 (80.0-100.0) fL MCH 28.0 (26.0-34.0) pg MCHC 31.2 (31.0-36.0) g/dL RDW 15.6 H (11.5-14.5) % Plt Count 333 (140-440) K/mcL MPV 9.4 (7.4-10.4) fL Neut % (Auto) 84.5 H (38.0-78.0) % Lymph % (Auto) 6.9 L (15.0-49.0) % [place] % (Auto) 7.8 (1.0-12.0) % Eos % (Auto) 0.5 (0.0-7.0) % Baso % (Auto) 0.3 (0.0-2.0) % Lymph # (Auto) 0.89 L (1.50-4.80) K/mcL [place] # (Auto) 1.01 H (0.10-0.90) K/mcL Eos # (Auto) 0.06 (0.00-0.70) K/mcL Baso # (Auto) 0.04 (0.00-0.20) K/mcL Absolute Neutrophils 10.94 H (1.80-8.00) K/mcL VBG Lactic Acid 0.8 (0.5-2.0) mmol/L Sodium 137 (133-145) mmol/L Potassium 3.7 (3.3-5.1) mmol/L Chloride 97 (96-108) mmol/L Carbon Dioxide 18 L (22-30) mmol/L Anion Gap 22.0 H (8.0-16.0) BUN 17 (8-23) mg/dL Creatinine 0.9 (0.6-1.1) mg/dL GFR Calculation 59 Glucose 112 H (70-105) mg/dL Calcium 5.7 L* (8.6-10.4) mg/dL Magnesium 0.6 L* (1.6-2.5) mg/dL Total Bilirubin 0.3 (0.1-1.0) mg/dL AST 32 H (<32) U/L ALT 13 (<40) U/L Alkaline Phosphatase 73 (39-117) U/L Troponin T (<0.03) ng/mL NT-Pro-B Natriuret Pep 3153.0 H (<450.0) pg/mL Total Protein 7.2 (5.9-8.4) gm/dL Albumin 3.1 L (3.2-5.2) gm/dL Globulin 4.1 H (2.2-3.7) gm/dL Albumin/Globulin Ratio 0.8 L (1.0-2.3) Procalcitonin (<0.10) ng/mL TSH (0.27-5.01) uIU/mL Urine Color Urine Appearance (Clear) Urine pH (5.0-9.0) Ur Specific [place] (1.000-1.035) Urine Protein (Negative) mg/dL Urine Glucose (UA) (Negative) mg/dL Urine Ketones (Negative) mg/dL Urine Occult Blood (Negative) mg/dL Urine Nitrate (Negative) Urine Bilirubin (Negative) mg/dL Urine Urobilinogen mg/dL Ur Leukocyte Esterase (Negative) /ug Urine RBC (0-3) /hpf Urine WBC (0-4) /hpf Ur Squamous Epith Cells (0-4) /hpf Ur Transition Epith Cell (0-2) /hpf Urine Bacteria (0) /hpf Hyaline Casts (0-2) /lph Urine Mucus (None) /hpf Ur Culture Indicated? 08/26/20 08/26/20 08/26/20 Range/Units 07:35 07:35 07:36 WBC (4.5-11.0) K/mcL RBC (4.00-5.20) M/mcL Hgb (12.0-15.0) g/dL Hct (36.0-48.0) % MCV (80.0-100.0) fL MCH (26.0-34.0) pg MCHC (31.0-36.0) g/dL RDW (11.5-14.5) % Plt Count (140-440) K/mcL MPV (7.4-10.4) fL Neut % (Auto) (38.0-78.0) % Lymph % (Auto) (15.0-49.0) % [place] % (Auto) (1.0-12.0) % Eos % (Auto) (0.0-7.0) % Baso % (Auto) (0.0-2.0) % Lymph # (Auto) (1.50-4.80) K/mcL [place] # (Auto) (0.10-0.90) K/mcL Eos # (Auto) (0.00-0.70) K/mcL Baso # (Auto) (0.00-0.20) K/mcL Absolute Neutrophils (1.80-8.00) K/mcL VBG Lactic Acid (0.5-2.0) mmol/L Sodium (133-145) mmol/L Potassium (3.3-5.1) mmol/L Chloride (96-108) mmol/L Carbon Dioxide (22-30) mmol/L Anion Gap (8.0-16.0) BUN (8-23) mg/dL Creatinine (0.6-1.1) mg/dL GFR Calculation Glucose (70-105) mg/dL Calcium (8.6-10.4) mg/dL Magnesium (1.6-2.5) mg/dL Total Bilirubin (0.1-1.0) mg/dL AST (<32) U/L ALT (<40) U/L Alkaline Phosphatase (39-117) U/L Troponin T 0.02 (<0.03) ng/mL NT-Pro-B Natriuret Pep (<450.0) pg/mL Total Protein (5.9-8.4) gm/dL Albumin (3.2-5.2) gm/dL Globulin (2.2-3.7) gm/dL Albumin/Globulin Ratio (1.0-2.3) Procalcitonin 0.11 H (<0.10) ng/mL TSH 0.90 (0.27-5.01) uIU/mL Urine Color Urine Appearance (Clear) Urine pH (5.0-9.0) Ur Specific [place] (1.000-1.035) Urine Protein (Negative) mg/dL Urine Glucose (UA) (Negative) mg/dL Urine Ketones (Negative) mg/dL Urine Occult Blood (Negative) mg/dL Urine Nitrate (Negative) Urine Bilirubin (Negative) mg/dL Urine Urobilinogen mg/dL Ur Leukocyte Esterase (Negative) /ug Urine RBC (0-3) /hpf Urine WBC (0-4) /hpf Ur Squamous Epith Cells (0-4) /hpf Ur Transition Epith Cell (0-2) /hpf Urine Bacteria (0) /hpf Hyaline Casts (0-2) /lph Urine Mucus (None) /hpf Ur Culture Indicated? 08/26/20 Range/Units 08:51 WBC (4.5-11.0) K/mcL RBC (4.00-5.20) M/mcL Hgb (12.0-15.0) g/dL Hct (36.0-48.0) % MCV (80.0-100.0) fL MCH (26.0-34.0) pg MCHC (31.0-36.0) g/dL RDW (11.5-14.5) % Plt Count (140-440) K/mcL MPV (7.4-10.4) fL Neut % (Auto) (38.0-78.0) % Lymph % (Auto) (15.0-49.0) % [place] % (Auto) (1.0-12.0) % Eos % (Auto) (0.0-7.0) % Baso % (Auto) (0.0-2.0) % Lymph # (Auto) (1.50-4.80) K/mcL [place] # (Auto) (0.10-0.90) K/mcL Eos # (Auto) (0.00-0.70) K/mcL Baso # (Auto) (0.00-0.20) K/mcL Absolute Neutrophils (1.80-8.00) K/mcL VBG Lactic Acid (0.5-2.0) mmol/L Sodium (133-145) mmol/L Potassium (3.3-5.1) mmol/L Chloride (96-108) mmol/L Carbon Dioxide (22-30) mmol/L Anion Gap (8.0-16.0) BUN (8-23) mg/dL Creatinine (0.6-1.1) mg/dL GFR Calculation Glucose (70-105) mg/dL Calcium (8.6-10.4) mg/dL Magnesium (1.6-2.5) mg/dL Total Bilirubin (0.1-1.0) mg/dL AST (<32) U/L ALT (<40) U/L Alkaline Phosphatase (39-117) U/L Troponin T (<0.03) ng/mL NT-Pro-B Natriuret Pep (<450.0) pg/mL Total Protein (5.9-8.4) gm/dL Albumin (3.2-5.2) gm/dL Globulin (2.2-3.7) gm/dL Albumin/Globulin Ratio (1.0-2.3) Procalcitonin (<0.10) ng/mL TSH (0.27-5.01) uIU/mL Urine Color Yellow Urine Appearance Hazy A (Clear) Urine pH 6.0 (5.0-9.0) Ur Specific [place] 1.024 (1.000-1.035) Urine Protein 100 A (Negative) mg/dL Urine Glucose (UA) Negative (Negative) mg/dL Urine Ketones 5 A (Negative) mg/dL Urine Occult Blood Negative (Negative) mg/dL Urine Nitrate Negative (Negative) Urine Bilirubin Negative (Negative) mg/dL Urine Urobilinogen Negative mg/dL Ur Leukocyte Esterase 500 A (Negative) /ug Urine RBC 7 H (0-3) /hpf Urine WBC > 182 H (0-4) /hpf Ur Squamous Epith Cells < 1 (0-4) /hpf Ur Transition Epith Cell < 1 (0-2) /hpf Urine Bacteria None (0) /hpf Hyaline Casts 4 H (0-2) /lph Urine Mucus Few A (None) /hpf Ur Culture Indicated? yes Discharge Plan Patient/Caregiver Discharge Instructions Pt seen by TITLE SEARCH MANAGER/PA only: No Clinical Impression: Acute on chronic congestive heart failure, Hypoxia, Hypomagnesemia, Hypocalcemia Patient Disposition: Xfer As Inpt ([facility]) Follow up with: Wesley Melo ARNP [Primary Care Provider] - Prescriptions: No Action lamotrigine 150 MG Tablet 150 mg PO BID RF: 0 levetiracetam 500 MG Tablet 1,500 mg PO BID RF: 0 venlafaxine [Effexor XR] 150 MG Cap.Er.24h 150 mg PO DAILY RF: 0 levothyroxine 125 MCG Tablet 125 mcg PO DAILY RF: 0 buspirone 10 MG Tablet 10 mg PO HS RF: 0 omeprazole 20 MG Tablet.Dr 40 mg PO DAILY RF: 0 hydrocodone-acetaminophen 1 TAB Tablet 1 tab PO Q5-6HP PRN (Reason: Moderate Pain) RF: 0 amlodipine 5 MG Tablet 5 mg PO DAILY RF: 0 cefdinir 300 MG Capsule 300 mg PO BID Qty: 10 RF: 0 lamotrigine 150 MG Tablet 150 mg PO BID Qty: 10 RF: 0 levetiracetam 500 MG Tablet 1,500 mg PO BID Qty: 10 RF: 0 hydrocodone-acetaminophen 1 EACH tablet 1 each PO Q4-6HP PRN (Reason: Pain) Qty: 15 RF: 0 ciprofloxacin HCl 500 MG tablet 500 mg PO BID Qty: 14 RF: 0
[2020-08-26] MEDS ORDERED: FUROSEMIDE 20 MG/2 ML VIAL IV ONE (08:24)
[2020-08-26 08:29] LABS: Basophils # (Auto) 0.04 K/mcL (0.00-0.20); Basophils % (Auto) 0.3 % (0.0-2.0); Eosinophils # (Auto) 0.06 K/mcL (0.00-0.70); Eosinophils % (Auto) 0.5 % (0.0-7.0); Hematocrit 39.8 % (36.0-48.0); Hemoglobin 12.4 g/dL (12.0-15.0); Lymphocytes # (Auto) 0.89 K/mcL (1.50-4.80); Lymphocytes % (Auto) 6.9 % (15.0-49.0); Mean Cell Volume 89.8 fL (80.0-100.0); Mean Corpuscular HGB Conc 31.2 g/dL (31.0-36.0); Mean Platelet Volume 9.4 fL (7.4-10.4); Monocytes # (Auto) 1.01 K/mcL (0.10-0.90); Monocytes % (Auto) 7.8 % (1.0-12.0); Neutrophils % (Auto) 84.5 % (38.0-78.0); Platelet Count 333 K/mcL (140-440); RBC 4.43 M/mcL (4.00-5.20); Red Cell Distribution Width 15.6 % (11.5-14.5); WBC 12.9 K/mcL (4.5-11.0)
--- NOTE | 2020-08-26 08:51 | XRay Report ---
HISTORY: Dyspnea and history of congestive heart failure FINDINGS: Lung volumes are small due to poor inspiration. Diffuse alveolar opacities are present throughout both lungs, left greater than right, which is accentuated by crowding of the pulmonary vascular markings. The pulmonary vessels appear engorged. No lobar consolidation is present. The heart size is within normal limits. No pleural effusion is detected. Comparison with the prior exam from 12/06/19 shows the lung volumes are smaller and the opacities in both lungs have become worse. IMPRESSION: Congestive heart failure. Superimposed pneumonia cannot be excluded. Interpreted and Authenticated by: Juliano Lawrence 08/26/20
[2020-08-26 09:02] LABS: ALT/SGPT 13 U/L (<40); AST/SGOT 32 U/L (<32); Albumin 3.1 gm/dL (3.2-5.2); Albumin/Globulin Ratio 0.8 (1.0-2.3); Alkaline Phosphatase 73 U/L (39-117); Bilirubin,Total 0.3 mg/dL (0.1-1.0); Blood Urea Nitrogen 17 mg/dL (8-23); Calcium 5.7 mg/dL (8.6-10.4); Carbon Dioxide 18 mmol/L (22-30); Chloride 97 mmol/L (96-108); Globulin 4.1 gm/dL (2.2-3.7); Glomerular Filtration Rate 59; Glucose 112 mg/dL (70-105)
[2020-08-26] MEDS ORDERED: MAGNESIUM SULFATE 2 GM/50 ML BAG IV ONE (09:06)
[2020-08-26 09:26] LABS: Appearance,Urine HAZY (Clear); Bilirubin,Urine Negative (Negative); Color,Urine YELLOW; Culture Indicated,Urine yes; Glucose,Urine (UA) Negative (Negative); Ketones,Urine 5 mg/dL (Negative); Leukocyte Esterase,Urine 500 /ug (Negative); Mucus,Urine FEW /hpf; Nitrate,Urine Negative (Negative); Protein,Urine 100 mg/dL (Negative); Specific Gravity,Urine 1.024 (1.000-1.035); Urine Blood Negative (Negative); Urine Hyaline Cast 4 /lph (0-2); Urine RBC 7 /hpf (0-3); Urine Squamous Epithelial Cell < 1 /hpf (0-4); Urine Transitional Epi Cells < 1 /hpf (0-2); Urine WBC > 182 /hpf (0-4); Urobilinogen,Urine Negative
--- NOTE | 2020-08-26 12:47 | Internal Med History&Physical ---
HPI History of Present Illness Patient information: Note initiated : 08/26/20 at 12:35 pm Service Date, if different from initiated Date: [] Patient: Gloria Rose a 85 y/o F admitted on for SOB . Chief Complaint: [] History of present illness: Ms. Rose is a 85 year old F Presents the ED from [facility]. Patient was sent in for shortness of breath hypoxia she said her saturations were 82% on room air. She also note increased swelling in her legs. She has some nausea. A little bit of cough that she says is clear phlegm. She sleeps in recliner is a nap for several years. She complains of orthopnea worse lately. In the ED she was found to have a A. fib with mildly elevated ventricular rate in the 110's. Respiratory showing pulmonary edema. Case was discussed with cardiology. No aggressive interventions needed. Is to continue rate control diuresis. He is requiring 2 L of oxygen. No prior diagnosis of atrial fibrillation. She is found to be severely low on her DM. Calcium was also low. Review of Systems: Pertinent positives as above. Denies headache/fever/chills/vomiting/chest or abdominal pain/diarrhea. Many 10 point review of system reviewed negative PFSH PFSH All Active Problems (Updated 08/26/20 @ 09:08 by Brandin Bishop DO) Acute on chronic congestive heart failure (Acute) Hypoxia (Acute) Hypomagnesemia (Acute) Hypocalcemia (Acute) Hypothyroidism, acquired (Acute) Congestive heart failure (Acute) Hypertension (Acute) Seizure disorder (Acute) Medical History (Updated 08/26/20 @ 09:08 by Brandin Bishop DO) Acute kidney injury (Resolved) Acute respiratory failure with hypoxia (Resolved) Community acquired pneumonia (Resolved) Congestive heart failure (Acute) Fall (Inactive) Hypertension (Acute) Hypothyroidism, acquired (Acute) Seizure disorder (Acute) Septic encephalopathy (Resolved) Severe sepsis (Resolved) Urinary tract infection (Resolved) Surgical History (Updated 08/26/20 @ 07:40 by Brandin Bishop DO) History of cataract surgery (Acute) History of hysterectomy (Acute) Social History smoking status: Never smoker MEDS/ALLERGIES Home Medications and Allergies Home Medications Medication Instructions Recorded Confirmed Type amlodipine 5 mg PO DAILY 10/20/16 10/21/16 History buspirone 10 mg PO HS 10/20/16 10/20/16 History hydrocodone-acetaminophen 1 tab PO Q5-6HP PRN 10/20/16 10/21/16 History lamotrigine 150 mg PO BID 10/20/16 10/20/16 History levetiracetam 1,500 mg PO BID 10/20/16 10/20/16 History levothyroxine 125 mcg PO DAILY 10/20/16 10/20/16 History omeprazole 40 mg PO DAILY 10/20/16 10/20/16 History venlafaxine [Effexor XR] 150 mg PO DAILY 10/20/16 10/20/16 History cefdinir 300 mg PO BID #10 cap 10/24/16 Rx lamotrigine 150 mg PO BID #10 tab 03/06/17 Rx levetiracetam 1,500 mg PO BID #10 tab 03/06/17 Rx ciprofloxacin HCl 500 mg PO BID #14 tab 12/06/19 Rx hydrocodone-acetaminophen 1 each PO Q4-6HP PRN #15 tab 12/06/19 Rx Allergies Allergy/AdvReac Type Severity Reaction Status Date / Time No Known Drug Allergies Allergy Verified 08/26/20 07:01 EXAM Constitutional Vitals: Temp Pulse Resp BP Pulse Ox 97.2 F 109 H 27 H 156/79 92 08/26/20 06:55 08/26/20 12:17 08/26/20 12:17 08/26/20 12:17 08/26/20 12:17 Exam: General: Alert, Awake, No acute Distress, obese Eyes/N/T: EOMI, PERRL, Head/Neck: neck supple, normocephalic atraumatic, pedal jugular reflux CV: irreg irreg, No murmurs, normal s1/s2 Pulm: rales b/l, no wheezing Abd: soft, nontender, +BS x4 Ext: no clubbing/cyanosis, 2+ b/l LE edema Neuro: Alert, no focal deficits, moves all extremities, CN 2-12 grossly intact, symmetrical strength b/l upper/lower, sensations intact b/l upper/lower Skin: warm/dry DATA Data Completed and Pending Labs: Labs from last 24 hours 08/26/20 08/26/20 08/26/20 08:51 07:36 07:35 WBC RBC Hgb Hct MCV MCH MCHC RDW Plt Count MPV Neut % (Auto) Lymph % (Auto) [place] % (Auto) Eos % (Auto) Baso % (Auto) Lymph # (Auto) [place] # (Auto) Eos # (Auto) Baso # (Auto) Absolute Neutrophils VBG Lactic Acid Sodium Potassium Chloride Carbon Dioxide Anion Gap BUN Creatinine GFR Calculation Glucose Calcium Magnesium Total Bilirubin AST ALT Alkaline Phosphatase Troponin T NT-Pro-B Natriuret Pep Total Protein Albumin Globulin Albumin/Globulin Ratio Procalcitonin 0.11 H TSH 0.90 Urine Color Yellow Urine Appearance Hazy A Urine pH 6.0 Ur Specific [place] 1.024 Urine Protein 100 A Urine Glucose (UA) Negative Urine Ketones 5 A Urine Occult Blood Negative Urine Nitrate Negative Urine Bilirubin Negative Urine Urobilinogen Negative Ur Leukocyte Esterase 500 A Urine RBC 7 H Urine WBC > 182 H Ur Squamous Epith Cells < 1 Ur Transition Epith Cell < 1 Urine Bacteria None Hyaline Casts 4 H Urine Mucus Few A Ur Culture Indicated? yes 08/26/20 08/26/20 08/26/20 07:35 07:35 07:35 WBC RBC Hgb Hct MCV MCH MCHC RDW Plt Count MPV Neut % (Auto) Lymph % (Auto) [place] % (Auto) Eos % (Auto) Baso % (Auto) Lymph # (Auto) [place] # (Auto) Eos # (Auto) Baso # (Auto) Absolute Neutrophils VBG Lactic Acid 0.8 Sodium 137 Potassium 3.7 Chloride 97 Carbon Dioxide 18 L Anion Gap 22.0 H BUN 17 Creatinine 0.9 GFR Calculation 59 Glucose 112 H Calcium 5.7 L* Magnesium 0.6 L* Total Bilirubin 0.3 AST 32 H ALT 13 Alkaline Phosphatase 73 Troponin T 0.02 NT-Pro-B Natriuret Pep 3153.0 H Total Protein 7.2 Albumin 3.1 L Globulin 4.1 H Albumin/Globulin Ratio 0.8 L Procalcitonin TSH Urine Color Urine Appearance Urine pH Ur Specific [place] Urine Protein Urine Glucose (UA) Urine Ketones Urine Occult Blood Urine Nitrate Urine Bilirubin Urine Urobilinogen Ur Leukocyte Esterase Urine RBC Urine WBC Ur Squamous Epith Cells Ur Transition Epith Cell Urine Bacteria Hyaline Casts Urine Mucus Ur Culture Indicated? 08/26/20 07:35 WBC 12.9 H RBC 4.43 Hgb 12.4 Hct 39.8 MCV 89.8 MCH 28.0 MCHC 31.2 RDW 15.6 H Plt Count 333 MPV 9.4 Neut % (Auto) 84.5 H Lymph % (Auto) 6.9 L [place] % (Auto) 7.8 Eos % (Auto) 0.5 Baso % (Auto) 0.3 Lymph # (Auto) 0.89 L [place] # (Auto) 1.01 H Eos # (Auto) 0.06 Baso # (Auto) 0.04 Absolute Neutrophils 10.94 H VBG Lactic Acid Sodium Potassium Chloride Carbon Dioxide Anion Gap BUN Creatinine GFR Calculation Glucose Calcium Magnesium Total Bilirubin AST ALT Alkaline Phosphatase Troponin T NT-Pro-B Natriuret Pep Total Protein Albumin Globulin Albumin/Globulin Ratio Procalcitonin TSH Urine Color Urine Appearance Urine pH Ur Specific [place] Urine Protein Urine Glucose (UA) Urine Ketones Urine Occult Blood Urine Nitrate Urine Bilirubin Urine Urobilinogen Ur Leukocyte Esterase Urine RBC Urine WBC Ur Squamous Epith Cells Ur Transition Epith Cell Urine Bacteria Hyaline Casts Urine Mucus Ur Culture Indicated? A/P Narrative A/P Narrative: A: *Afib w/mild rvr: *Acute on likely chronic CHF: likely at least diastolic *Acute hypoxic respiratory failure: -on 2L NC *Hypomagnesemia/hypocalcemia: *?UTI: *HTN: *Depression/anxiety: *Seizure disorder: *GERD: *Chronic pain: *Obesity: P: -IV diuresis -i/o's, UOP -BB, ACEI prior to d/c -echo -Wean oxygen, IS -Rocephin, pending UC -Replete electrolytes -PT/OT -ppx: eliquis/home PPI DNR Time Spent With Patient Time: Total time spent is greater than 50% in coordination of care (as documented) at patient's floor/unit and/or counseling patient:
[2020-08-26] MEDS ORDERED: CALCIUM GLUCONATE 4.65 MEQ/10 ML VIAL IV ONE ×2 (12:49→19:36)
[2020-08-26] MEDS ORDERED: SENNOSIDES 1 TABLET PO PRN (12:50)
[2020-08-26] MEDS ORDERED: POTASSIUM CHLORIDE 20 MEQ TABLET PO PRN ×2 (12:50)
[2020-08-26] MEDS ORDERED: POTASSIUM CHLORIDE 40 MEQ in DEXTROSE 5% IN WATER 500 ML IV PRN (12:50)
[2020-08-26] MEDS ORDERED: ONDANSETRON 4 MG/2 ML VIAL IV PRN (12:50)
[2020-08-26] MEDS ORDERED: METOPROLOL TARTRATE 5 MG/5 ML VIAL IV PRN (12:55)
[2020-08-26] MEDS ORDERED: METOPROLOL SUCCINATE 25 MG TAB.XL.24H PO ONE (12:55)
[2020-08-26] MEDS ORDERED: cefTRIAXone 1 GM in DEXTROSE 5% IN WATER 50 ML IV SCH (13:00)
[2020-08-26] MEDS ORDERED: CALCIUM GLUCONATE 9.3 MEQ in DEXTROSE 5% IN WATER 50 ML IV ONE ×2 (13:50→21:00)
[2020-08-26] MEDS: MAGNESIUM SULFATE 2 GM/50 ML BAG IV PRN (13:57)
[2020-08-26 14:36] LABS: HDL Cholesterol 58 mg/dL (>40); LDL Cholesterol,Calculated 69 mg/dL (<100); Non-HDL Cholesterol 85 mg/dL (<130); Triglycerides 82 mg/dL (<150)
[2020-08-26] MEDS: cefTRIAXone 1 GM VIAL IV SCH (15:10)
[2020-08-26] MEDS: 0.9 % SODIUM CHLORIDE 10 ML SYRINGE IV SCH ×6 (15:10→22:05)
[2020-08-26] MEDS ORDERED: ENALAPRILAT 1.25 MG/ML VIAL IV PRN (16:04)
[2020-08-26] MEDS ORDERED: CARBOXYMETHYLCELLULOSE SODIUM 1 EACH DROPER.GEL OU PRN (16:17)
[2020-08-26] MEDS: FUROSEMIDE 40 MG/4 ML VIAL IV SCH (16:54)
[2020-08-26] MEDS: ALBUTEROL SULFATE 200 PUFF INHALER INH SCH ×2 (18:19→21:08)
[2020-08-26 18:28] LABS: Blood Urea Nitrogen 15 mg/dL (8-23); Calcium 6.6 mg/dL (8.6-10.4); Carbon Dioxide 24 mmol/L (22-30); Chloride 96 mmol/L (96-108); Glomerular Filtration Rate 68; Glucose 116 mg/dL (70-105)
[2020-08-26] MEDS: IPRATROPIUM/ALBUTEROL 3 ML AMPUL.NEB NEB PRN (20:01)
[2020-08-26] MEDS: ARIPIPRAZOLE 5 MG TABLET PO SCH (20:36)
[2020-08-26] MEDS: levETIRAcetam 500 MG TABLET PO SCH (20:36)
[2020-08-26] MEDS: LACTOBACILLUS 1 CAPSULE PO SCH (20:36)
[2020-08-26] MEDS: MELATONIN 3 MG TABLET PO SCH (20:37)
[2020-08-26] MEDS: LORazepam 1 MG TABLET PO SCH (20:37)
[2020-08-26] MEDS: APIXABAN 5 MG TABLET PO SCH (20:37)
[2020-08-26] MEDS: DOCUSATE SODIUM 100 MG CAPSULE PO SCH (20:37)
[2020-08-26] MEDS ORDERED: CALCIUM GLUCONATE 4.65 MEQ/10 ML VIAL ONE (20:37)
[2020-08-26] MEDS: FLUTICASONE HFA 110MCG INHALER INH SCH (21:01)
[2020-08-26] MEDS: ACETAMINOPHEN 325 MG TABLET PO PRN (21:12)
[2020-08-27] MEDS: 0.9 % SODIUM CHLORIDE 10 ML SYRINGE IV SCH ×3 (05:20→21:04)
[2020-08-27 07:36] LABS: ALT/SGPT 14 U/L (<40); AST/SGOT 41 U/L (<32); Albumin 2.9 gm/dL (3.2-5.2); Albumin/Globulin Ratio 0.7 (1.0-2.3); Alkaline Phosphatase 74 U/L (39-117); Bilirubin,Direct < 0.2 mg/dL (<0.3); Bilirubin,Total 0.2 mg/dL (0.1-1.0); Blood Urea Nitrogen 14 mg/dL (8-23); Calcium 6.9 mg/dL (8.6-10.4); Carbon Dioxide 22 mmol/L (22-30); Chloride 99 mmol/L (96-108); Globulin 3.9 gm/dL (2.2-3.7); Glomerular Filtration Rate 80; Glucose 109 mg/dL (70-105); Lactate Dehydrogenase 557 U/L (135-225); Phosphorous 4.4 mg/dL (2.5-4.5); Triglycerides 81 mg/dL (<150)
[2020-08-27] MEDS: DOCUSATE SODIUM 100 MG CAPSULE PO SCH ×2 (08:00→20:44)
[2020-08-27] MEDS: LACTOBACILLUS 1 CAPSULE PO SCH ×2 (08:00→20:45)
[2020-08-27] MEDS: APIXABAN 5 MG TABLET PO SCH ×2 (08:00→20:45)
[2020-08-27] MEDS: LISINOPRIL 20 MG TABLET PO SCH (08:00)
[2020-08-27] MEDS: METOPROLOL SUCCINATE 25 MG TAB.XL.24H PO SCH (08:00)
[2020-08-27] MEDS: PANTOPRAZOLE 40 MG TABLET PO SCH (08:01)
[2020-08-27] MEDS: levETIRAcetam 500 MG TABLET PO SCH ×2 (08:01→20:45)
[2020-08-27] MEDS: VENLAFAXINE 150 MG CAP.XL.24H PO SCH (08:01)
[2020-08-27] MEDS: FUROSEMIDE 40 MG/4 ML VIAL IV SCH ×2 (08:01→16:41)
[2020-08-27] MEDS: ALBUTEROL SULFATE 200 PUFF INHALER INH SCH ×4 (08:02→20:59)
[2020-08-27] MEDS: FLUTICASONE HFA 110MCG INHALER INH SCH ×2 (08:03→20:59)
--- NOTE | 2020-08-27 08:04 | Internal Med Progress Note ---
SUBJECTIVE Subjective Patient information: Note initiated : 08/27/20 at 8:01 am Service Date, if different from initiated Date: [] Patient: Gloria Rose 85 y/o F admitted on 08/26/20 for SOB . Chief Complaint: [] Interval history: history of present illness: Ms. Rose is a 85 year old F Presents the ED from [facility]. Patient was sent in for shortness of breath hypoxia she said her saturations were 82% on room air. She also note increased swelling in her legs. She has some nausea. A little bit of cough that she says is clear phlegm. She sleeps in recliner is a nap for several years. She complains of orthopnea worse lately. In the ED she was found to have a A. fib with mildly elevated ventricular rate in the 110's. Respiratory showing pulmonary edema. Case was discussed with cardiology. No aggressive interventions needed. Is to continue rate control diuresis. He is requiring 2 L of oxygen. No prior diagnosis of atrial fibrillation. She is found to be severely low on her DM. Calcium was also low. 08/27 Patient on 3 L of oxygen. Occasional cough. Some shortness of breath. Gets anxious at times. Rates controlled. Electrolytes improved. Takes shallow breaths. Review of Systems: denies headache/fever/chills/nausea/vomiting/chest or abdominal pain/diarrhea. Otherwise see above. Constitutional Vitals: Vital Signs Temp Pulse Resp BP Pulse Ox 97.7 F 90 23 H 133/70 97 08/27/20 04:01 08/27/20 07:02 08/27/20 07:02 08/27/20 07:02 08/27/20 07:02 Period Temp Pulse Resp BP Sys/Morejon Pulse Ox Last 24 Hr 97.1 F-97.9 F 25-121 18-39 105-163/58-116 89-100 Intake and Output 08/26/20 08/27/20 08/27/20 21:59 05:59 13:59 Intake Total 70 200 Output Total 450 500 Balance -380 -300 Weight 97.114 kg Intake & Output: Intake & Output 08/26/20 08/27/20 08/27/20 21:59 05:59 13:59 Intake Total 70 200 Output Total 450 500 Balance -380 -300 Weight 97.114 kg Intake: IV 70 Calcium Gluconate 9.3 Meq In 70 Dextrose 5% in Water 50 ml @ 70 mls/hr IV ONCE ONE Rx#: [id number] Oral 200 Output: Urine Catheter Amount 450 500 Other: Urine Appearance Clear Cloudy Uretheral ([place]) Clear Clear Urine Color Bright Yellow Bright Yellow Uretheral ([place]) Bright Yellow Bright Yellow Urine Odor Normal Exam: General: Alert, Awake, No acute Distress, obese Eyes/N/T: EOMI, Head/Neck: neck supple, jvd CV: irreg irreg, No murmurs, Pulm: rales b/l improving, no wheezing Abd: soft, nontender, +BS x4 Ext: no clubbing/cyanosis, 1-2+ b/l LE edema Neuro: Alert, no focal deficits, moves all extremities, Skin: warm/dry OBJ DATA Labs CBC & Chem 7: 08/27/20 07:53 08/27/20 05:15 Labs: Abnormal Lab Results 08/27/20 08/26/20 08/26/20 05:15 17:15 08:51 WBC RDW Neut % (Auto) Lymph % (Auto) Lymph # (Auto) [place] # (Auto) Absolute Neutrophils Carbon Dioxide Anion Gap 17.0 H Glucose 109 H 116 H Calcium 6.9 L 6.6 L Magnesium 1.5 L AST 41 H Lactate Dehydrogenase 557 H NT-Pro-B Natriuret Pep Albumin 2.9 L Globulin 3.9 H Albumin/Globulin Ratio 0.7 L Procalcitonin Urine Appearance Hazy A Urine Protein 100 A Urine Ketones 5 A Ur Leukocyte Esterase 500 A Urine RBC 7 H Urine WBC > 182 H Hyaline Casts 4 H Urine Mucus Few A 08/26/20 08/26/20 08/26/20 07:36 07:35 07:35 WBC 12.9 H RDW 15.6 H Neut % (Auto) 84.5 H Lymph % (Auto) 6.9 L Lymph # (Auto) 0.89 L [place] # (Auto) 1.01 H Absolute Neutrophils 10.94 H Carbon Dioxide 18 L Anion Gap 22.0 H Glucose 112 H Calcium 5.7 L* Magnesium 0.6 L* AST 32 H Lactate Dehydrogenase NT-Pro-B Natriuret Pep 3153.0 H Albumin 3.1 L Globulin 4.1 H Albumin/Globulin Ratio 0.8 L Procalcitonin 0.11 H Urine Appearance Urine Protein Urine Ketones Ur Leukocyte Esterase Urine RBC Urine WBC Hyaline Casts Urine Mucus Meds: Medications Acetaminophen (Tylenol) 650 mg PO Q6HP PRN PRN Reason: PAIN/FEVER > 101 Last Admin: 08/26/20 21:12 Dose: 650 mg Documented by: Albuterol Sulfate (Ventolin) 2 puff INH ACHS [facility] Last Admin: 08/26/20 21:08 Dose: Not Given Documented by: Albuterol/Ipratropium (Duoneb) 3 ml NEB Q4HP PRN PRN Reason: Shortness Of Breath Last Admin: 08/26/20 20:01 Dose: 3 ml Documented by: Apixaban (Eliquis) 5 mg PO BID [facility] Last Admin: 08/26/20 20:37 Dose: 5 mg Documented by: Artificial Tears (Refresh Celluvisc) 1 each OU PRN PRN PRN Reason: Dry Eyes Ceftriaxone Sodium (Rocephin) 1 gm IV Q24H [facility] Last Admin: 08/26/20 15:10 Dose: 1 gm Documented by: Docusate Sodium (Colace) 100 mg PO BID [facility] Last Admin: 08/26/20 20:37 Dose: 100 mg Documented by: Enalaprilat (Vasotec) 0 mg IV Q2HP PRN PRN Reason: Hypertension Last Admin: 08/26/20 19:34 Dose: 0.625 mg Documented by: Fluticasone Propionate (Flovent Hfa 110mcg) 1 puff INH BID [facility] Last Admin: 08/26/20 21:01 Dose: Not Given Documented by: Furosemide (Lasix) 40 mg IV BIDD [facility] Last Admin: 08/26/20 16:54 Dose: 40 mg Documented by: Potassium Chloride 40 meq/ (Dextrose) 520 mls @ 130 mls/hr IV UD PRN PRN Reason: Potassium < 3 Magnesium Sulfate (Magnesium Sulfate) 2 gm in 50 mls @ 50 mls/hr IV UD PRN PRN Reason: Magnesium </= 1.6 Lactobacillus Rhamnosus (Culturelle) 1 cap PO BID [facility] Last Admin: 08/26/20 20:36 Dose: 1 cap Documented by: Levetiracetam (Keppra) 750 mg PO BID [facility] Last Admin: 08/26/20 20:36 Dose: 750 mg Documented by: Levothyroxine Sodium (Synthroid) 100 mcg PO QAMAC [facility] Lisinopril (Zestril) 20 mg PO DAILY [facility] Lorazepam (Ativan) 1 mg PO HS [facility] Last Admin: 08/26/20 20:37 Dose: 1 mg Documented by: Melatonin (Melatonin 3mg Tablet) 9 mg PO HS [facility] Last Admin: 08/26/20 20:37 Dose: 9 mg Documented by: Metoprolol Succinate (Toprol Xl) 25 mg PO DAILY [facility] Metoprolol Tartrate (Lopressor) 5 mg IV Q2HP PRN PRN Reason: Tachyarrhythmias HR>110 Ondansetron HCl (Zofran) 4 mg IV Q4HP PRN PRN Reason: Nausea And Vomiting Pantoprazole Sodium (Protonix) 40 mg PO QAMAC [facility] Potassium Chloride (Kdur) 40 meq PO UD PRN PRN Reason: Potssium is 3-3.5 Potassium Chloride (Kdur) 40 meq PO UD PRN PRN Reason: Potassium < 3 Senna (Senokot) 2 tab PO DAILYP PRN PRN Reason: Constipation Sodium Chloride (Saline Flush) 10 ml IV Q8 [facility] Last Admin: 08/27/20 05:20 Dose: 10 ml Documented by: Venlafaxine HCl (Effexor Xr) 150 mg PO DAILY [facility] A/P Narrative A/P Narrative: A: *Afib w/mild rvr: *Acute on likely chronic CHF: likely at least diastolic *Acute hypoxic respiratory failure: -on 3L NC *Hypomagnesemia/hypocalcemia: improved *?UTI: *HTN: *Depression/anxiety: *Seizure disorder: *GERD: *Chronic pain: *Obesity: P: -IV diuresis -i/o's, UOP -BB, ACEI -echo pending -Wean oxygen, IS -Rocephin, pending UC -Replete electrolytes -PT/OT -ppx: eliquis/home PPI DNR Time Spent With Patient Time: Total time spent is greater than 50% in coordination of care (as documented) at patient's floor/unit and/or counseling patient: QUALITY VTE Deep Vein Thrombosis/Pulmonary Embolism Present on Admission: No
[2020-08-27] MEDS ORDERED: MAGNESIUM SULFATE 2 GM/50 ML BAG IV ONE (08:05)
[2020-08-27] MEDS ORDERED: CALCIUM GLUCONATE 4.65 MEQ/10 ML VIAL IV ONE (08:05)
[2020-08-27] MEDS: LEVOTHYROXINE 100 MCG TABLET PO SCH (08:06)
[2020-08-27] MEDS ORDERED: ALBUMIN HUMAN 12.5 GM/50 ML BAG IV ONE (08:06)
[2020-08-27] MEDS: cefTRIAXone 1 GM VIAL IV SCH (08:06)
[2020-08-27] MEDS: MAGNESIUM SULFATE 2 GM/50 ML BAG IV PRN (08:10)
[2020-08-27 08:40] LABS: Basophils # (Auto) 0.06 K/mcL (0.00-0.20); Basophils % (Auto) 0.5 % (0.0-2.0); Eosinophils # (Auto) 0.09 K/mcL (0.00-0.70); Eosinophils % (Auto) 0.7 % (0.0-7.0); Hematocrit 42.5 % (36.0-48.0); Lymphocytes # (Auto) 0.79 K/mcL (1.50-4.80); Lymphocytes % (Auto) 6.4 % (15.0-49.0); Mean Corpuscular HGB Conc 30.6 g/dL (31.0-36.0); Mean Platelet Volume 10.2 fL (7.4-10.4); Monocytes # (Auto) 0.75 K/mcL (0.10-0.90); Monocytes % (Auto) 6.1 % (1.0-12.0); Neutrophils % (Auto) 86.3 % (38.0-78.0); Platelet Count 364 K/mcL (140-440); RBC 4.72 M/mcL (4.00-5.20); Red Cell Distribution Width 15.5 % (11.5-14.5); WBC 12.3 K/mcL (4.5-11.0)
[2020-08-27] MEDS ORDERED: CALCIUM GLUCONATE 9.3 MEQ in DEXTROSE 5% IN WATER 50 ML IV ONE ×2 (09:00→10:00)
[2020-08-27] MEDS: hydrOXYzine 25 MG TABLET PO PRN (15:30)
--- NOTE | 2020-08-27 15:40 | Internal Med Progress Note ---
SUBJECTIVE Subjective Patient information: Note initiated : 08/28/20 at 3:32 pm Service Date, if different from initiated Date: [] Patient: Gloria Rose a 85 y/o F admitted on 08/26/20 for SOB . Chief Complaint: [] Interval history: history of present illness: Ms. Rose is a 85 year old F Presents the ED from [email or web address] Patient was sent in for shortness of breath hypoxia she said her saturations were 82% on room air. She also note increased swelling in her legs. She has some nausea. A little bit of cough that she says is clear phlegm. She sleeps and naps in recliner for several years. She complains of worsening orthopnea lately. In the ED she was found to have a A. fib with mildly elevated ventricular rate in the 110's. Respiratory showing pulmonary edema. Case was discussed with cardiology. No aggressive interventions needed, recommended rate control and diuresis. She required 2 L of oxygen which is new. No prior diagnosis of atrial fibrillation. 08/27 Patient on 3 L of oxygen. Occasional cough. Some shortness of breath. Gets anxious at times. Rate controlled. Electrolytes improved. Takes shallow breaths. 08/28 CT chest w/ contrast showed bilateral nonspecific ground glass opacities, more consistent with pneumonia and ARDS than CHF. COVID PCR ordered, started dexamethasone pending COVID PCR results. Levofloxacin started instead of ceftriaxone for additional atypical coverage. Review of Systems: denies headache/fever/chills/nausea/vomiting/chest or abdominal pain/diarrhea. Otherwise see above. Constitutional Vitals: Vital Signs Temp Pulse Resp BP Pulse Ox 97.9 F 88 23 H 126/69 94 08/27/20 09:01 08/27/20 12:08 08/27/20 14:00 08/27/20 12:01 08/27/20 14:00 Period Temp Pulse Resp BP Sys/[place] Pulse Ox Last 24 Hr 97.1 F-97.9 F 25-121 19-32 112-169/54-106 89-100 Intake and Output 08/27/20 08/27/20 08/27/20 05:59 13:59 21:59 Intake Total 200 357 Output Total 500 Balance -300 357 Weight 97.114 kg Patient Weight 08/28/20 05:59 Weight 97.114 kg Intake & Output: Intake & Output 08/27/20 08/27/20 08/27/20 05:59 13:59 21:59 Intake Total 200 357 Output Total 500 Balance -300 357 Weight 97.114 kg Intake: IV 177 Calcium Gluconate 9.3 Meq In 77 Dextrose 5% in Water 50 ml @ 70 mls/hr IV 0900 ONE Rx#: [id number] Oral 200 180 Output: Urine Catheter Amount 500 Other: Meal Lunch Percent of Meal Consumed 50% Feeding Ability Independent Urine Appearance Cloudy Cloudy Uretheral ([place]) Clear Clear Clear Urine Color Bright Yellow Bright Yellow Uretheral ([place]) Bright Yellow Bright Yellow Bright Yellow Urine Odor Normal Exam: General: Alert, Awake, No acute Distress, obese Eyes/N/T: EOMI, Head/Neck: neck supple, jvd CV: irreg irreg, No murmurs, Pulm: rales b/l improving, no wheezing Abd: soft, nontender, +BS x4 Ext: no clubbing/cyanosis, 1-2+ b/l LE edema Neuro: Alert, no focal deficits, moves all extremities, Skin: warm/dry OBJ DATA Labs CBC & Chem 7: 08/28/20 05:16 08/28/20 05:16 Labs: Abnormal Lab Results 08/27/20 08/27/20 08/26/20 07:53 05:15 17:15 WBC 12.3 H MCHC 30.6 L RDW 15.5 H Neut % (Auto) 86.3 H Lymph % (Auto) 6.4 L Lymph # (Auto) 0.79 L [place] # (Auto) Absolute Neutrophils 10.65 H Carbon Dioxide Anion Gap 17.0 H Glucose 109 H 116 H Calcium 6.9 L 6.6 L Magnesium 1.5 L AST 41 H Lactate Dehydrogenase 557 H NT-Pro-B Natriuret Pep Albumin 2.9 L Globulin 3.9 H Albumin/Globulin Ratio 0.7 L Procalcitonin Urine Appearance Urine Protein Urine Ketones Ur Leukocyte Esterase Urine RBC Urine WBC Hyaline Casts Urine Mucus 08/26/20 08/26/20 08/26/20 08:51 07:36 07:35 WBC MCHC RDW Neut % (Auto) Lymph % (Auto) Lymph # (Auto) [place] # (Auto) Absolute Neutrophils Carbon Dioxide 18 L Anion Gap 22.0 H Glucose 112 H Calcium 5.7 L* Magnesium 0.6 L* AST 32 H Lactate Dehydrogenase NT-Pro-B Natriuret Pep 3153.0 H Albumin 3.1 L Globulin 4.1 H Albumin/Globulin Ratio 0.8 L Procalcitonin 0.11 H Urine Appearance Hazy A Urine Protein 100 A Urine Ketones 5 A Ur Leukocyte Esterase 500 A Urine RBC 7 H Urine WBC > 182 H Hyaline Casts 4 H Urine Mucus Few A 08/26/20 07:35 WBC 12.9 H MCHC RDW 15.6 H Neut % (Auto) 84.5 H Lymph % (Auto) 6.9 L Lymph # (Auto) 0.89 L [place] # (Auto) 1.01 H Absolute Neutrophils 10.94 H Carbon Dioxide Anion Gap Glucose Calcium Magnesium AST Lactate Dehydrogenase NT-Pro-B Natriuret Pep Albumin Globulin Albumin/Globulin Ratio Procalcitonin Urine Appearance Urine Protein Urine Ketones Ur Leukocyte Esterase Urine RBC Urine WBC Hyaline Casts Urine Mucus Meds: Medications Acetaminophen (Tylenol) 650 mg PO Q6HP PRN PRN Reason: PAIN/FEVER > 101 Last Admin: 08/26/20 21:12 Dose: 650 mg Documented by: Albuterol Sulfate (Ventolin) 2 puff INH ACHS [facility] Last Admin: 08/27/20 14:18 Dose: Not Given Documented by: Albuterol/Ipratropium (Duoneb) 3 ml NEB Q4HP PRN PRN Reason: Shortness Of Breath Last Admin: 08/26/20 20:01 Dose: 3 ml Documented by: Apixaban (Eliquis) 5 mg PO BID [facility] Last Admin: 08/27/20 08:00 Dose: 5 mg Documented by: Artificial Tears (Refresh Celluvisc) 1 each OU PRN PRN PRN Reason: Dry Eyes Ceftriaxone Sodium (Rocephin) 1 gm IV Q24H [facility] Last Admin: 08/27/20 08:06 Dose: 1 gm Documented by: Diphenhydramine HCl (Benadryl) 25 mg PO HSP PRN PRN Reason: Insomnia Docusate Sodium (Colace) 100 mg PO BID [facility] Last Admin: 08/27/20 08:00 Dose: 100 mg Documented by: Enalaprilat (Vasotec) 0 mg IV Q2HP PRN PRN Reason: Hypertension Last Admin: 08/26/20 19:34 Dose: 0.625 mg Documented by: Fluticasone Propionate (Flovent Hfa 110mcg) 1 puff INH BID [facility] Last Admin: 08/27/20 08:03 Dose: Not Given Documented by: Furosemide (Lasix) 40 mg IV BIDD [facility] Last Admin: 08/27/20 08:01 Dose: 40 mg Documented by: Hydroxyzine HCl (Atarax) 50 mg PO TIDP PRN PRN Reason: anxiety Potassium Chloride 40 meq/ (Dextrose) 520 mls @ 130 mls/hr IV UD PRN PRN Reason: Potassium < 3 Magnesium Sulfate (Magnesium Sulfate) 2 gm in 50 mls @ 50 mls/hr IV UD PRN PRN Reason: Magnesium </= 1.6 Last Infusion: 08/27/20 09:10 Dose: Infused Documented by: Lactobacillus Rhamnosus (Culturelle) 1 cap PO BID [facility] Last Admin: 08/27/20 08:00 Dose: 1 cap Documented by: Levetiracetam (Keppra) 750 mg PO BID [facility] Last Admin: 08/27/20 08:01 Dose: 750 mg Documented by: Levothyroxine Sodium (Synthroid) 100 mcg PO [facility] Last Admin: 08/27/20 08:06 Dose: 100 mcg Documented by: Lisinopril (Zestril) 20 mg PO DAILY [facility] Last Admin: 08/27/20 08:00 Dose: 20 mg Documented by: Lorazepam (Ativan) 1 mg PO [facility] Last Admin: 08/26/20 20:37 Dose: 1 mg Documented by: Melatonin (Melatonin 3mg Tablet) 9 mg PO [facility] Last Admin: 08/26/20 20:37 Dose: 9 mg Documented by: Metoprolol Succinate (Toprol Xl) 25 mg PO DAILY [facility] Last Admin: 08/27/20 08:00 Dose: 25 mg Documented by: Metoprolol Tartrate (Lopressor) 5 mg IV Q2HP PRN PRN Reason: Tachyarrhythmias HR>110 Ondansetron HCl (Zofran) 4 mg IV Q4HP PRN PRN Reason: Nausea And Vomiting Pantoprazole Sodium (Protonix) 40 mg PO QAMAC [facility] Last Admin: 08/27/20 08:01 Dose: 40 mg Documented by: Potassium Chloride (Kdur) 40 meq PO UD PRN PRN Reason: Potssium is 3-3.5 Potassium Chloride (Kdur) 40 meq PO UD PRN PRN Reason: Potassium < 3 Senna (Senokot) 2 tab PO DAILYP PRN PRN Reason: Constipation Sodium Chloride (Saline Flush) 10 ml IV Q8 [facility] Last Admin: 08/27/20 14:19 Dose: 10 ml Documented by: Venlafaxine HCl (Effexor Xr) 150 mg PO DAILY [facility] Last Admin: 08/27/20 08:01 Dose: 150 mg Documented by: A/P Narrative A/P Narrative: ASSESSMENT: 85 year old female with HTN, depression/anxiety, seizure disorder, GERD, obesity admitted for acute hypoxic respiratory failure initially felt to be secondary to congestive heart failure in the setting of atrial fibrillation with RVR however subsequent workup with CT chest w/ contrast was more suggestive of pneumonia or ARDS. #Bilateral pulmonary opacities of uncertain cause-ARDS vs atypical pneumonia #Paroxysmal afib w/mild rvr-resolved now in sinus rythym #Acute on likely chronic CHF-resolved #Acute hypoxic respiratory failure #Hypomagnesemia/hypocalcemia: improved #HTN: #Depression/anxiety: #Seizure disorder: #GERD: #Chronic pain: #Obesity: P: -COVID PCR -Empiric dexamathasone -start levofloxacin, dicontinue ceftriaxone -restarted home lasix, discontinue IV lasix -BB, ACEI -echo pending -Wean oxygen, IS -PT/OT -ppx: eliquis/home PPI DNR Time Spent With Patient Time: Total time spent is greater than 50% in coordination of care (as arnulfo anderson) at patient's floor/unit and/or counseling patient: 35 QUALITY VTE Deep Vein Thrombosis/Pulmonary Embolism Present on Admission: No
[2020-08-27] MEDS: LORazepam 1 MG TABLET PO SCH (20:44)
[2020-08-27] MEDS: MELATONIN 3 MG TABLET PO SCH (20:45)
[2020-08-27] MEDS: ARIPIPRAZOLE 5 MG TABLET PO SCH (20:45)
[2020-08-27] MEDS ORDERED: MELATONIN 3 MG TABLET PO SCH (21:00)
[2020-08-27] MEDS: diphenhydrAMINE 25 MG CAPSULE PO PRN (22:14)
[2020-08-27] MEDS: ACETAMINOPHEN 325 MG TABLET PO PRN (22:15)
[2020-08-28] MEDS: 0.9 % SODIUM CHLORIDE 10 ML SYRINGE IV SCH ×3 (05:48→20:47)
[2020-08-28 07:11] LABS: Basophils # (Auto) 0.03 K/mcL (0.00-0.20); Basophils % (Auto) 0.3 % (0.0-2.0); Eosinophils # (Auto) 0.11 K/mcL (0.00-0.70); Eosinophils % (Auto) 1.1 % (0.0-7.0); Hemoglobin 12.8 g/dL (12.0-15.0); Lymphocytes # (Auto) 0.87 K/mcL (1.50-4.80); Mean Cell Volume 93.4 fL (80.0-100.0); Mean Corpuscular HGB Conc 29.1 g/dL (31.0-36.0); Mean Platelet Volume 10.1 fL (7.4-10.4); Monocytes # (Auto) 0.57 K/mcL (0.10-0.90); Monocytes % (Auto) 5.9 % (1.0-12.0); Neutrophils % (Auto) 83.7 % (38.0-78.0); Platelet Count 330 K/mcL (140-440); RBC 4.71 M/mcL (4.00-5.20); Red Cell Distribution Width 15.4 % (11.5-14.5); WBC 9.7 K/mcL (4.5-11.0)
[2020-08-28 07:23] LABS: ALT/SGPT 12 U/L (<40); AST/SGOT 28 U/L (<32); Albumin 2.7 gm/dL (3.2-5.2); Albumin/Globulin Ratio 0.7 (1.0-2.3); Alkaline Phosphatase 68 U/L (39-117); Bilirubin,Direct < 0.2 mg/dL (<0.3); Bilirubin,Total 0.2 mg/dL (0.1-1.0); Blood Urea Nitrogen 15 mg/dL (8-23); Calcium 7.4 mg/dL (8.6-10.4); Carbon Dioxide 24 mmol/L (22-30); Chloride 98 mmol/L (96-108); Globulin 3.9 gm/dL (2.2-3.7); Glomerular Filtration Rate 68; Glucose 112 mg/dL (70-105); Lactate Dehydrogenase 370 U/L (135-225); Phosphorous 3.6 mg/dL (2.5-4.5); Triglycerides 88 mg/dL (<150); Uric Acid 5.8 mg/dL (2.5-8.0)
[2020-08-28] MEDS: PANTOPRAZOLE 40 MG TABLET PO SCH (07:49)
[2020-08-28] MEDS: FUROSEMIDE 40 MG/4 ML VIAL IV SCH ×2 (07:49→17:29)
[2020-08-28] MEDS: LEVOTHYROXINE 100 MCG TABLET PO SCH (07:49)
[2020-08-28] MEDS: ALBUTEROL SULFATE 200 PUFF INHALER INH SCH ×4 (07:50→20:41)
[2020-08-28] MEDS: VENLAFAXINE 150 MG CAP.XL.24H PO SCH (08:58)
[2020-08-28] MEDS: cefTRIAXone 1 GM VIAL IV SCH (08:58)
[2020-08-28] MEDS: levETIRAcetam 500 MG TABLET PO SCH ×2 (08:58→20:38)
[2020-08-28] MEDS: LACTOBACILLUS 1 CAPSULE PO SCH ×2 (08:58→20:39)
[2020-08-28] MEDS: DOCUSATE SODIUM 100 MG CAPSULE PO SCH ×2 (08:59→20:39)
[2020-08-28] MEDS: FLUTICASONE HFA 110MCG INHALER INH SCH ×2 (08:59→20:58)
[2020-08-28] MEDS: METOPROLOL SUCCINATE 25 MG TAB.XL.24H PO SCH (08:59)
[2020-08-28] MEDS: LISINOPRIL 20 MG TABLET PO SCH (08:59)
[2020-08-28] MEDS: APIXABAN 5 MG TABLET PO SCH ×2 (08:59→20:39)
--- NOTE | 2020-08-28 09:31 | XRay Report ---
HISTORY: Short of breath, pulmonary edema FINDINGS: Lung volumes are small. There is severe consolidating infiltrates throughout both lungs with the greatest consolidation around the left hilum and medially in left lower lobe. These have become significantly worse since 08/26/20. The heart is partially obscured by the consolidation but is not grossly enlarged. There may be very small bilateral pleural effusions. No pneumothorax is present. IMPRESSION: Severe infiltrates throughout both lungs which could be due to pulmonary edema, pneumonia, ARDS or a combination of the above Interpreted and Authenticated by: Juliano Lawrence 08/28/20
[2020-08-28] MEDS ORDERED: LORazepam 1 MG TABLET PO ONE (14:22)
[2020-08-28] MEDS ORDERED: IOPAMIDOL 100 ML BOTTLE IV ONE (14:41)
--- NOTE | 2020-08-28 15:31 | Cat Scan Report ---
History: Hypoxia, pulmonary infiltrates, short of breath TECHNIQUE: Following injection of intravenous nonionic contrast the chest was imaged during the pulmonary arterial phase. Sagittal, coronal and axial MIPS images were created. Radiation exposure was limited using dose reduction technology. FINDINGS: The lung volumes are relatively small. There are small to moderate-sized bilateral layering pleural effusions. There is partial atelectasis in the posterior basal segments of both lower lobes. A mosaic pattern of groundglass alveolar infiltrates are present in both lungs, with relative sparing of the left upper lobe. No pneumothorax is present. There is no emphysema. The central airways are normal. There are a few mildly enlarged lymph nodes in the mediastinum and both kenny. Largest is in the pretracheal retrocaval space and measures 1.6 x 1.7 cm. The heart is upper limits of normal in size. There is minimal plaque formation in the aorta and coronary arteries. No pericardial effusion is present. The pulmonary arteries are normal with no intraluminal filling defects. The aorta is normal in caliber. There is an anterior wedge compression fracture at T12. This is of undetermined age. There is no paraspinal hematoma. Comparison with the prior chest x-ray done earlier in the same date shows relatively little change in appearance of the lungs. IMPRESSION: Nonspecific groundglass infiltrates in both lungs. This is not a typical pattern for are cardiogenic pulmonary edema. Pneumonia and ARDS are more likely. Bilateral pleural effusions causing mild compressive atelectasis in the posterior basal segments of both lower lobes No evidence of pulmonary emboli Interpreted and Authenticated by: Juliano Lawrence 08/28/20
[2020-08-28] MEDS ORDERED: LEVOFLOXACIN 750 MG/150 ML BAG IV SCH (17:15)
[2020-08-28] MEDS ORDERED: AZITHROMYCIN 500 MG in DEXTROSE 5% IN WATER 250 ML IV SCH (17:15)
[2020-08-28] MEDS: DEXAMETHASONE 10 MG/ML VIAL IV SCH (18:12)
[2020-08-28] MEDS: ACETAMINOPHEN 325 MG TABLET PO PRN (20:39)
[2020-08-28] MEDS: LORazepam 1 MG TABLET PO SCH (20:39)
[2020-08-28] MEDS: ARIPIPRAZOLE 5 MG TABLET PO SCH (20:39)
[2020-08-28] MEDS: MELATONIN 3 MG TABLET PO SCH (20:39)
[2020-08-28] MEDS: diphenhydrAMINE 25 MG CAPSULE PO PRN (20:39)
[2020-08-28] MEDS ORDERED: REMDESIVIR 200 MG in 0.9 % SODIUM CHLORIDE 250 ML IV ONE (21:00)
[2020-08-28] MEDS: DOXYCYCLINE 100 MG in DEXTROSE 5% IN WATER 100 ML IV SCH (21:41)
[2020-08-29] MEDS: IPRATROPIUM/ALBUTEROL 3 ML AMPUL.NEB NEB PRN (01:00)
[2020-08-29] MEDS: 0.9 % SODIUM CHLORIDE 10 ML SYRINGE IV SCH ×3 (06:07→20:20)
[2020-08-29] MEDS: LEVOTHYROXINE 100 MCG TABLET PO SCH (06:58)
[2020-08-29] MEDS: PANTOPRAZOLE 40 MG TABLET PO SCH (06:58)
[2020-08-29] MEDS: ALBUTEROL SULFATE 200 PUFF INHALER INH SCH ×4 (07:00→20:20)
[2020-08-29 08:03] LABS: ALT/SGPT 13 U/L (<40); AST/SGOT 22 U/L (<32); Albumin/Globulin Ratio 0.8 (1.0-2.3); Alkaline Phosphatase 68 U/L (39-117); Bilirubin,Direct < 0.2 mg/dL (<0.3); Bilirubin,Total < 0.2 mg/dL (0.1-1.0); Blood Urea Nitrogen 19 mg/dL (8-23); Calcium 7.8 mg/dL (8.6-10.4); Carbon Dioxide 30 mmol/L (22-30); Chloride 99 mmol/L (96-108); Globulin 3.8 gm/dL (2.2-3.7); Glomerular Filtration Rate 68; Glucose 118 mg/dL (70-105); Lactate Dehydrogenase 233 U/L (135-225); Phosphorous 3.3 mg/dL (2.5-4.5); Triglycerides 76 mg/dL (<150)
[2020-08-29] MEDS: DOCUSATE SODIUM 100 MG CAPSULE PO SCH ×2 (08:56→20:19)
[2020-08-29] MEDS: LACTOBACILLUS 1 CAPSULE PO SCH ×2 (08:56→20:19)
[2020-08-29] MEDS: levETIRAcetam 500 MG TABLET PO SCH ×2 (08:56→20:19)
[2020-08-29] MEDS: cefTRIAXone 2 GM in DEXTROSE 5% IN WATER 50 ML IV SCH (08:56)
[2020-08-29] MEDS: VENLAFAXINE 150 MG CAP.XL.24H PO SCH (08:56)
[2020-08-29] MEDS: DOXYCYCLINE 100 MG in DEXTROSE 5% IN WATER 100 ML IV SCH ×2 (08:56→20:20)
[2020-08-29] MEDS: APIXABAN 5 MG TABLET PO SCH ×2 (08:56→20:19)
[2020-08-29] MEDS: METOPROLOL SUCCINATE 25 MG TAB.XL.24H PO SCH (08:56)
[2020-08-29] MEDS: LISINOPRIL 20 MG TABLET PO SCH (08:56)
[2020-08-29] MEDS: DEXAMETHASONE 10 MG/ML VIAL IV SCH (08:56)
[2020-08-29] MEDS ORDERED: FUROSEMIDE 20 MG TABLET PO SCH (09:00)
[2020-08-29] MEDS: MAGNESIUM SULFATE 2 GM/50 ML BAG IV PRN (09:29)
[2020-08-29] MEDS: FLUTICASONE HFA 110MCG INHALER INH SCH ×2 (09:37→20:20)
[2020-08-29] MEDS ORDERED: REMDESIVIR 100 MG in 0.9 % SODIUM CHLORIDE 250 ML IV SCH (13:00)
[2020-08-29] MEDS: ACETAMINOPHEN 325 MG TABLET PO PRN ×2 (14:24→21:26)
[2020-08-29] MEDS: hydrOXYzine 25 MG TABLET PO PRN (14:58)
--- NOTE | 2020-08-29 16:46 | Internal Med Progress Note ---
SUBJECTIVE Subjective Patient information: Note initiated : 08/29/20 at 4:38 pm Service Date, if different from initiated Date: [] Patient: Gloria Rose a 85 y/o F admitted on 08/26/20 for SOB . Chief Complaint: [] Interval history: history of present illness: Ms. Rose is a 85 year old F Presents the ED from [facility]. Patient was sent in for shortness of breath hypoxia she said her saturations were 82% on room air. She also note increased swelling in her legs. She has some nausea. A little bit of cough that she says is clear phlegm. She sleeps and naps in recliner for several years. She complains of worsening orthopnea lately. In the ED she was found to have a A. fib with mildly elevated ventricular rate in the 110's. Respiratory showing pulmonary edema. Case was discussed with cardiology. No aggressive interventions needed, recommended rate control and diuresis. She required 2 L of oxygen which is new. No prior diagnosis of atrial fibrillation. 08/27 Patient on 3 L of oxygen. Occasional cough. Some shortness of breath. Gets anxious at times. Rate controlled. Electrolytes improved. Takes shallow breaths. 08/28 CT chest w/ contrast showed bilateral nonspecific ground glass opacities, more consistent with pneumonia and ARDS than CHF. COVID PCR ordered, started dexamethasone pending COVID PCR results. Ceftriaxone and doxycycline. Discontinued IV lasix and restarted home oral lasix. 08/29 COVID PCR positive, continue dexamethasone and started remdesivir. Continued abx for now. Overall clinical improvement. 08/30 Gradual improvement, per report the patient was diagnosed with COVID in June. Not clear why COVID PCR is positive now, some patient have persistent positive and now there are reports of new variants of COVID infections. Procalcitonin normal range, discontinued antibiotics. Review of Systems: denies headache/fever/chills/nausea/vomiting/chest or abdominal pain/diarrhea. Otherwise see above. Constitutional Vitals: Vital Signs Temp Pulse Resp BP Pulse Ox 96.8 F L 95 H 27 H 118/58 98 08/29/20 12:09 08/29/20 06:00 08/29/20 12:09 08/29/20 12:09 08/29/20 14:00 Period Temp Pulse Resp BP Sys/Morejon Pulse Ox Last 24 Hr 96.5 F-97.3 F 81-95 22-29 113-131/58-83 90-98 Intake and Output 08/29/20 08/29/20 08/29/20 05:59 13:59 21:59 Intake Total 325 490 Output Total 275 75 Balance 50 415 Weight 97.114 kg Patient Weight 08/30/20 05:59 Weight 97.114 kg Intake & Output: Intake & Output 08/29/20 08/29/20 08/29/20 05:59 13:59 21:59 Intake Total 325 490 Output Total 275 75 Balance 50 415 Weight 97.114 kg Intake: IV 100 450 Vibramycin 100 mg In Dextrose 5 100 100 % in Water 100 ml @ 100 mls/hr IV Q12H [facility] Rx#:[id number] Veklury 100 mg In Sodium 250 Chloride 0.9% 250 ml @ 500 mls/ hr IV DAILY@1300 [facility] Rx#: [id number] Rocephin 2 gm In Dextrose 5% in 50 Water 50 ml @ 100 mls/hr IV DAILY [facility] Rx#:[id number] Oral 225 40 Output: Void Amount 275 75 Other: Meal Lunch Percent of Meal Consumed 50% Urine Appearance Clear Clear Clear Urine Color Dark Yellow Dark Yellow Dark Yellow Urine Odor Normal Normal Stool Size Large Stool Color Brown Stool Consistency Soft # Voids 1 # Bowel Movements 1 Exam: General: Alert, Awake, No acute Distress, obese Eyes/N/T: EOMI, Head/Neck: neck supple, jvd CV: irreg irreg, No murmurs, Pulm: rales b/l improving, no wheezing Abd: soft, nontender, Ext: no clubbing/cyanosis, Neuro: Alert, no focal deficits, moves all extremities, Skin: warm/dry OBJ DATA Labs CBC & Chem 7: 08/30/20 04:27 08/30/20 04:27 Labs: Abnormal Lab Results 08/29/20 08/28/20 08/28/20 07:09 05:16 05:16 WBC MCHC 29.1 L RDW 15.4 H Neut % (Auto) 83.7 H Lymph % (Auto) 9.0 L Lymph # (Auto) 0.87 L Absolute Neutrophils 8.08 H Anion Gap Glucose 118 H 112 H Calcium 7.8 L 7.4 L Magnesium AST Lactate Dehydrogenase 233 H 370 H Albumin 3.0 L 2.7 L Globulin 3.8 H 3.9 H Albumin/Globulin Ratio 0.8 L 0.7 L 08/27/20 08/27/20 08/26/20 07:53 05:15 17:15 WBC 12.3 H MCHC 30.6 L RDW 15.5 H Neut % (Auto) 86.3 H Lymph % (Auto) 6.4 L Lymph # (Auto) 0.79 L Absolute Neutrophils 10.65 H Anion Gap 17.0 H Glucose 109 H 116 H Calcium 6.9 L 6.6 L Magnesium 1.5 L AST 41 H Lactate Dehydrogenase 557 H Albumin 2.9 L Globulin 3.9 H Albumin/Globulin Ratio 0.7 L Meds: Medications Acetaminophen (Tylenol) 650 mg PO Q6HP PRN PRN Reason: PAIN/FEVER > 101 Last Admin: 08/29/20 14:24 Dose: 650 mg Documented by: Albuterol Sulfate (Ventolin) 2 puff INH ACHS [facility] Last Admin: 08/29/20 12:26 Dose: 2 puff Documented by: Albuterol/Ipratropium (Duoneb) 3 ml NEB Q4HP PRN PRN Reason: Shortness Of Breath Last Admin: 08/29/20 01:00 Dose: 3 ml Documented by: Apixaban (Eliquis) 5 mg PO BID [facility] Last Admin: 08/29/20 08:56 Dose: 5 mg Documented by: Artificial Tears (Refresh Celluvisc) 1 each OU PRN PRN PRN Reason: Dry Eyes Dexamethasone (Decadron) 6 mg IV DAILY [facility] Stop: 09/06/20 09:01 Last Admin: 08/29/20 08:56 Dose: 6 mg Documented by: Diphenhydramine HCl (Benadryl) 25 mg PO HSP PRN PRN Reason: Insomnia Last Admin: 08/28/20 20:39 Dose: 25 mg Documented by: Docusate Sodium (Colace) 100 mg PO BID [facility] Last Admin: 08/29/20 08:56 Dose: 100 mg Documented by: Enalaprilat (Vasotec) 0 mg IV Q2HP PRN PRN Reason: Hypertension Last Admin: 08/26/20 19:34 Dose: 0.625 mg Documented by: Fluticasone Propionate (Flovent Hfa 110mcg) 1 puff INH BID [facility] Last Admin: 08/29/20 09:37 Dose: Not Given Documented by: Furosemide (Lasix) 20 mg PO QAM [facility] Last Admin: 08/29/20 08:56 Dose: 20 mg Documented by: Hydroxyzine HCl (Atarax) 50 mg PO TIDP PRN PRN Reason: anxiety Last Admin: 08/29/20 14:58 Dose: 50 mg Documented by: Potassium Chloride 40 meq/ (Dextrose) 520 mls @ 130 mls/hr IV UD PRN PRN Reason: Potassium < 3 Magnesium Sulfate (Magnesium Sulfate) 2 gm in 50 mls @ 50 mls/hr IV UD PRN PRN Reason: Magnesium </= 1.6 Last Infusion: 08/29/20 12:26 Dose: Infused Documented by: Doxycycline Hyclate 100 mg/ (Dextrose) 100 mls @ 100 mls/hr IV Q12H [facility] Last Infusion: 08/29/20 12:27 Dose: Infused Documented by: Ceftriaxone Sodium 2 gm/ (Dextrose) 50 mls @ 100 mls/hr IV DAILY [facility] Last Infusion: 08/29/20 12:26 Dose: Infused Documented by: REMDESIVIR 100 mg/ Sodium (Chloride) 250 mls @ 500 mls/hr IV DAILY@1300 [facility] Stop: 09/01/20 13:29 Last Infusion: 08/29/20 13:07 Dose: Infused Documented by: Lactobacillus Rhamnosus (Culturelle) 1 cap PO BID [facility] Last Admin: 08/29/20 08:56 Dose: 1 cap Documented by: Levetiracetam (Keppra) 750 mg PO BID [facility] Last Admin: 08/29/20 08:56 Dose: 750 mg Documented by: Levothyroxine Sodium (Synthroid) 100 mcg PO QAMAC [facility] Last Admin: 08/29/20 06:58 Dose: 100 mcg Documented by: Lisinopril (Zestril) 20 mg PO DAILY [facility] Last Admin: 08/29/20 08:56 Dose: 20 mg Documented by: Lorazepam (Ativan) 1 mg PO HS [facility] Last Admin: 08/28/20 20:39 Dose: 1 mg Documented by: Melatonin (Melatonin 3mg Tablet) 9 mg PO HS [facility] Last Admin: 08/28/20 20:39 Dose: 9 mg Documented by: Metoprolol Succinate (Toprol Xl) 25 mg PO DAILY [facility] Last Admin: 08/29/20 08:56 Dose: 25 mg Documented by: Metoprolol Tartrate (Lopressor) 5 mg IV Q2HP PRN PRN Reason: Tachyarrhythmias HR>110 Ondansetron HCl (Zofran) 4 mg IV Q4HP PRN PRN Reason: Nausea And Vomiting Pantoprazole Sodium (Protonix) 40 mg PO QAMAC [facility] Last Admin: 08/29/20 06:58 Dose: 40 mg Documented by: Potassium Chloride (Kdur) 40 meq PO UD PRN PRN Reason: Potssium is 3-3.5 Potassium Chloride (Kdur) 40 meq PO UD PRN PRN Reason: Potassium < 3 Senna (Senokot) 2 tab PO DAILYP PRN PRN Reason: Constipation Last Admin: 08/29/20 08:56 Dose: 2 tab Documented by: Sodium Chloride (Saline Flush) 10 ml IV Q8 [facility] Last Admin: 08/29/20 14:00 Dose: 10 ml Documented by: Venlafaxine HCl (Effexor Xr) 150 mg PO DAILY [facility] Last Admin: 08/29/20 08:56 Dose: 150 mg Documented by: A/P Narrative A/P Narrative: ASSESSMENT: 85 year old female with HTN, depression/anxiety, seizure disorder, GERD, obesity admitted for acute hypoxic respiratory failure initially felt to be secondary to congestive heart failure in the setting of atrial fibrillation with RVR however subsequent workup with CT chest w/ contrast was more suggestive of pneumonia or ARDS. Initial management was diuresis with IV lasix however after a couple of days the patient did not continue to improve as expected with CHF. COVID PCR was positive, the patient was started on dexamethasone and remdesivir and transitioned back to her home oral lasix. ECHO showed LV EF 65%, grade I diastolic dysfunction, moderate to severe TR, suggestive of severe pulmonary hypertension. #Acute hypoxic respiratory failure #Positive COVID PCR-persistent positive (from June COVID illness) vs reinfection (rare) #Paroxysmal afib-resolved now in sinus rhythm #Acute on chronic diastolic heart failure-resolved #Hypomagnesemia-resolved #HTN: #Depression/anxiety: #Seizure disorder: #GERD: #Chronic pain: #Obesity: P: -Dexamethasone and remdesivir per protocol -discontinue Ceftriaxone and Doxycyline. -home lasix 20 mg daily -BB, ACEI -Wean oxygen, IS -PT/OT -transfer to med/surg -ppx: eliquis/home PPI -DNR Time Spent With Patient Time: Total time spent is greater than 50% in coordination of care (as documented) at patient's floor/unit and/or counseling patient: QUALITY VTE Deep Vein Thrombosis/Pulmonary Embolism Present on Admission: No
[2020-08-29] MEDS: ARIPIPRAZOLE 5 MG TABLET PO SCH (20:19)
[2020-08-29] MEDS: LORazepam 1 MG TABLET PO SCH (20:19)
[2020-08-29] MEDS: MELATONIN 3 MG TABLET PO SCH (20:19)
[2020-08-30] MEDS: 0.9 % SODIUM CHLORIDE 10 ML SYRINGE IV SCH ×3 (05:16→20:32)
[2020-08-30 06:26] LABS: Basophils # (Auto) 0.07 K/mcL (0.00-0.20); Basophils % (Auto) 0.6 % (0.0-2.0); Eosinophils # (Auto) 0.13 K/mcL (0.00-0.70); Eosinophils % (Auto) 1.1 % (0.0-7.0); Hematocrit 41.5 % (36.0-48.0); Hemoglobin 12.1 g/dL (12.0-15.0); Lymphocytes # (Auto) 1.92 K/mcL (1.50-4.80); Lymphocytes % (Auto) 15.6 % (15.0-49.0); Mean Cell Volume 94.7 fL (80.0-100.0); Mean Corpuscular HGB Conc 29.2 g/dL (31.0-36.0); Mean Platelet Volume 9.7 fL (7.4-10.4); Monocytes # (Auto) 1.43 K/mcL (0.10-0.90); Monocytes % (Auto) 11.6 % (1.0-12.0); Neutrophils % (Auto) 71.1 % (38.0-78.0); Platelet Count 389 K/mcL (140-440); RBC 4.38 M/mcL (4.00-5.20); Red Cell Distribution Width 15.6 % (11.5-14.5); WBC 12.3 K/mcL (4.5-11.0)
[2020-08-30 07:07] LABS: Blood Urea Nitrogen 28 mg/dL (8-23); Calcium 8.4 mg/dL (8.6-10.4); Carbon Dioxide 27 mmol/L (22-30); Chloride 102 mmol/L (96-108); Glomerular Filtration Rate 68; Glucose 99 mg/dL (70-105)
[2020-08-30] MEDS: PANTOPRAZOLE 40 MG TABLET PO SCH (07:21)
[2020-08-30] MEDS: LEVOTHYROXINE 100 MCG TABLET PO SCH (07:21)
[2020-08-30] MEDS: DOXYCYCLINE 100 MG in DEXTROSE 5% IN WATER 100 ML IV SCH (07:29)
[2020-08-30] MEDS: cefTRIAXone 2 GM in DEXTROSE 5% IN WATER 50 ML IV SCH (07:29)
[2020-08-30] MEDS: ALBUTEROL SULFATE 200 PUFF INHALER INH SCH ×5 (07:29→20:46)
[2020-08-30] MEDS ORDERED: ONDANSETRON 4 MG/2 ML VIAL IV PRN (08:24)
[2020-08-30] MEDS ORDERED: POTASSIUM CHLORIDE 20 MEQ TABLET PO PRN ×2 (08:24)
[2020-08-30] MEDS ORDERED: POTASSIUM CHLORIDE 40 MEQ in DEXTROSE 5% IN WATER 500 ML IV PRN (08:24)
[2020-08-30] MEDS ORDERED: SENNOSIDES 1 TABLET PO PRN (08:24)
[2020-08-30] MEDS ORDERED: CARBOXYMETHYLCELLULOSE SODIUM 1 EACH DROPER.GEL OU PRN (08:24)
[2020-08-30] MEDS ORDERED: IPRATROPIUM/ALBUTEROL 3 ML AMPUL.NEB NEB PRN (08:24)
[2020-08-30] MEDS ORDERED: METOPROLOL TARTRATE 5 MG/5 ML VIAL IV PRN (08:24)
[2020-08-30] MEDS ORDERED: IOPAMIDOL 100 ML BOTTLE IV ONE (08:24)
[2020-08-30] MEDS ORDERED: MAGNESIUM SULFATE 2 GM/50 ML BAG IV PRN (08:24)
[2020-08-30] MEDS ORDERED: hydrOXYzine 25 MG TABLET PO PRN (08:24)
[2020-08-30] MEDS ORDERED: ENALAPRILAT 1.25 MG/ML VIAL IV PRN (08:24)
[2020-08-30] MEDS ORDERED: DEXAMETHASONE 4 MG TABLET PO SCH (09:00)
[2020-08-30] MEDS: LACTOBACILLUS 1 CAPSULE PO SCH ×2 (09:23→20:32)
[2020-08-30] MEDS: LISINOPRIL 20 MG TABLET PO SCH (09:23)
[2020-08-30] MEDS: APIXABAN 5 MG TABLET PO SCH ×2 (09:23→20:31)
[2020-08-30] MEDS: DOCUSATE SODIUM 100 MG CAPSULE PO SCH ×2 (09:23→20:32)
[2020-08-30] MEDS: DEXAMETHASONE 4 MG TABLET PO SCH (09:23)
[2020-08-30] MEDS: VENLAFAXINE 150 MG CAP.XL.24H PO SCH (09:23)
[2020-08-30] MEDS: METOPROLOL SUCCINATE 25 MG TAB.XL.24H PO SCH (09:24)
[2020-08-30] MEDS: levETIRAcetam 500 MG TABLET PO SCH ×2 (09:24→20:31)
[2020-08-30] MEDS: FUROSEMIDE 20 MG TABLET PO SCH (09:24)
[2020-08-30] MEDS: FLUTICASONE HFA 110MCG INHALER INH SCH ×2 (09:24→21:18)
[2020-08-30] MEDS: REMDESIVIR 100 MG in 0.9 % SODIUM CHLORIDE 250 ML IV SCH (13:10)
[2020-08-30] MEDS: ARIPIPRAZOLE 5 MG TABLET PO SCH (20:31)
[2020-08-30] MEDS: MELATONIN 3 MG TABLET PO SCH (20:31)
[2020-08-30] MEDS: LORazepam 1 MG TABLET PO SCH (20:32)
[2020-08-30] MEDS: ACETAMINOPHEN 325 MG TABLET PO PRN (20:45)
[2020-08-30] MEDS: diphenhydrAMINE 25 MG CAPSULE PO PRN (23:19)
[2020-08-31] MEDS: 0.9 % SODIUM CHLORIDE 10 ML SYRINGE IV SCH ×3 (04:20→21:35)
[2020-08-31 06:19] LABS: Basophils # (Auto) 0.03 K/mcL (0.00-0.20); Basophils % (Auto) 0.3 % (0.0-2.0); Eosinophils # (Auto) 0.09 K/mcL (0.00-0.70); Hemoglobin 12.2 g/dL (12.0-15.0); Lymphocytes # (Auto) 1.52 K/mcL (1.50-4.80); Lymphocytes % (Auto) 16.9 % (15.0-49.0); Mean Cell Volume 90.9 fL (80.0-100.0); Mean Corpuscular HGB Conc 29.8 g/dL (31.0-36.0); Mean Platelet Volume 9.4 fL (7.4-10.4); Monocytes % (Auto) 8.9 % (1.0-12.0); Neutrophils % (Auto) 72.9 % (38.0-78.0); Platelet Count 419 K/mcL (140-440); RBC 4.51 M/mcL (4.00-5.20); Red Cell Distribution Width 15.4 % (11.5-14.5)
[2020-08-31] MEDS: LEVOTHYROXINE 100 MCG TABLET PO SCH (07:03)
[2020-08-31] MEDS: ALBUTEROL SULFATE 200 PUFF INHALER INH SCH ×4 (07:03→21:35)
[2020-08-31] MEDS: PANTOPRAZOLE 40 MG TABLET PO SCH (07:03)
[2020-08-31 07:55] LABS: ALT/SGPT 32 U/L (<40); AST/SGOT 56 U/L (<32); Albumin/Globulin Ratio 0.8 (1.0-2.3); Alkaline Phosphatase 70 U/L (39-117); Bilirubin,Total 0.2 mg/dL (0.1-1.0); Blood Urea Nitrogen 24 mg/dL (8-23); Calcium 8.6 mg/dL (8.6-10.4); Carbon Dioxide 30 mmol/L (22-30); Chloride 100 mmol/L (96-108); Globulin 3.6 gm/dL (2.2-3.7); Glomerular Filtration Rate 80; Glucose 103 mg/dL (70-105)
--- NOTE | 2020-08-31 09:30 | XRay Report ---
CLINICAL INFORMATION: follow up after diuresis, persistent rales COMPARISON: 08/28/2020 FINDINGS: Moderate cardiomegaly is unchanged. Mediastinum is unremarkable. Pulmonary vessels have returned to near normal in caliber. Bilateral peribronchial vascular edema have improved dramatically with minimal perihilar residual. Small bilateral pleural effusions noted. IMPRESSION: Marked improvement in bilateral edema with only mild residual. Findings compatible with resolving CHF Interpreted and Authenticated by: Raffy Charles 08/31/20
[2020-08-31] MEDS: LACTOBACILLUS 1 CAPSULE PO SCH ×2 (10:00→21:34)
[2020-08-31] MEDS: DOCUSATE SODIUM 100 MG CAPSULE PO SCH ×2 (10:00→21:35)
[2020-08-31] MEDS: DEXAMETHASONE 4 MG TABLET PO SCH (10:01)
[2020-08-31] MEDS: VENLAFAXINE 150 MG CAP.XL.24H PO SCH (10:01)
[2020-08-31] MEDS: APIXABAN 5 MG TABLET PO SCH ×2 (10:01→21:34)
[2020-08-31] MEDS: FUROSEMIDE 20 MG TABLET PO SCH (10:02)
[2020-08-31] MEDS: METOPROLOL SUCCINATE 25 MG TAB.XL.24H PO SCH (10:02)
[2020-08-31] MEDS: LISINOPRIL 20 MG TABLET PO SCH (10:02)
[2020-08-31] MEDS: levETIRAcetam 500 MG TABLET PO SCH ×2 (10:02→21:34)
[2020-08-31] MEDS: FLUTICASONE HFA 110MCG INHALER INH SCH ×2 (10:21→21:35)
[2020-08-31] MEDS: REMDESIVIR 100 MG in 0.9 % SODIUM CHLORIDE 250 ML IV SCH (13:48)
[2020-08-31] MEDS: ACETAMINOPHEN 325 MG TABLET PO PRN (16:04)
[2020-08-31] MEDS: diphenhydrAMINE 25 MG CAPSULE PO PRN (21:33)
[2020-08-31] MEDS: MELATONIN 3 MG TABLET PO SCH (21:34)
[2020-08-31] MEDS: LORazepam 1 MG TABLET PO SCH (21:35)
[2020-08-31] MEDS: ARIPIPRAZOLE 5 MG TABLET PO SCH (21:35)
[2020-09-01] MEDS: 0.9 % SODIUM CHLORIDE 10 ML SYRINGE IV SCH ×3 (04:40→23:03)
[2020-09-01] MEDS: FLUTICASONE HFA 110MCG INHALER INH SCH ×2 (07:01→20:40)
[2020-09-01 08:05] LABS: Basophils # (Auto) 0.06 K/mcL (0.00-0.20); Basophils % (Auto) 0.7 % (0.0-2.0); Eosinophils # (Auto) 0.12 K/mcL (0.00-0.70); Eosinophils % (Auto) 1.3 % (0.0-7.0); Hematocrit 44.8 % (36.0-48.0); Hemoglobin 12.9 g/dL (12.0-15.0); Lymphocytes # (Auto) 1.41 K/mcL (1.50-4.80); Lymphocytes % (Auto) 15.6 % (15.0-49.0); Mean Cell Volume 95.1 fL (80.0-100.0); Mean Corpuscular HGB Conc 28.8 g/dL (31.0-36.0); Mean Platelet Volume 9.7 fL (7.4-10.4); Monocytes # (Auto) 0.85 K/mcL (0.10-0.90); Monocytes % (Auto) 9.4 % (1.0-12.0); Platelet Count 417 K/mcL (140-440); RBC 4.71 M/mcL (4.00-5.20); Red Cell Distribution Width 15.9 % (11.5-14.5)
[2020-09-01] MEDS: LACTOBACILLUS 1 CAPSULE PO SCH ×2 (08:30→20:40)
[2020-09-01] MEDS: levETIRAcetam 500 MG TABLET PO SCH (08:30)
[2020-09-01] MEDS: FUROSEMIDE 20 MG TABLET PO SCH (08:30)
[2020-09-01] MEDS: METOPROLOL SUCCINATE 25 MG TAB.XL.24H PO SCH (08:30)
[2020-09-01] MEDS: LEVOTHYROXINE 100 MCG TABLET PO SCH (08:31)
[2020-09-01] MEDS: VENLAFAXINE 150 MG CAP.XL.24H PO SCH (08:31)
[2020-09-01] MEDS: APIXABAN 5 MG TABLET PO SCH ×2 (08:31→20:40)
[2020-09-01] MEDS: DEXAMETHASONE 4 MG TABLET PO SCH (08:32)
[2020-09-01] MEDS: PANTOPRAZOLE 40 MG TABLET PO SCH (08:32)
[2020-09-01] MEDS: LISINOPRIL 20 MG TABLET PO SCH (08:32)
[2020-09-01] MEDS: ALBUTEROL SULFATE 200 PUFF INHALER INH SCH ×4 (08:33→21:19)
[2020-09-01] MEDS: DOCUSATE SODIUM 100 MG CAPSULE PO SCH ×2 (08:33→20:39)
[2020-09-01 08:55] LABS: Blood Urea Nitrogen 29 mg/dL (8-23); Carbon Dioxide 30 mmol/L (22-30); Chloride 97 mmol/L (96-108); Glomerular Filtration Rate 59; Glucose 109 mg/dL (70-105)
[2020-09-01 11:35] LABS: ABG Methemoglobin 0.3 % (0.4-1.5); Total Hemoglobin 11.6 gm/Dl (13.5-16.5); VBG Base Excess 2 (-2-3); VBG HCO3 30.4 mmol/L; VBG Oxygen Saturation 83.3 %; VBG PCO2 67.8 mmHg; VBG PH 7.27 U; VBG PO2 69.5 mmHg; VBG Total CO2 32.5 mmol/L
[2020-09-01] MEDS ORDERED: 0.9 % SODIUM CHLORIDE 1,000 ML IV SCH ×2 (11:45→12:44)
[2020-09-01] MEDS ORDERED: IOPAMIDOL 100 ML BOTTLE IV ONE (12:44)
[2020-09-01] MEDS ORDERED: IPRATROPIUM/ALBUTEROL 3 ML AMPUL.NEB NEB PRN (12:44)
[2020-09-01] MEDS ORDERED: ENALAPRILAT 1.25 MG/ML VIAL IV PRN (12:44)
[2020-09-01] MEDS ORDERED: SENNOSIDES 1 TABLET PO PRN (12:44)
[2020-09-01] MEDS ORDERED: METOPROLOL TARTRATE 5 MG/5 ML VIAL IV PRN (12:44)
[2020-09-01] MEDS ORDERED: CARBOXYMETHYLCELLULOSE SODIUM 1 EACH DROPER.GEL OU PRN (12:44)
[2020-09-01] MEDS ORDERED: POTASSIUM CHLORIDE 20 MEQ TABLET PO PRN ×2 (12:44)
[2020-09-01] MEDS ORDERED: hydrOXYzine 25 MG TABLET PO PRN (12:44)
[2020-09-01] MEDS ORDERED: ONDANSETRON 4 MG/2 ML VIAL IV PRN (12:44)
[2020-09-01] MEDS ORDERED: POTASSIUM CHLORIDE 40 MEQ in DEXTROSE 5% IN WATER 500 ML IV PRN (12:44)
[2020-09-01] MEDS ORDERED: MAGNESIUM SULFATE 2 GM/50 ML BAG IV PRN (12:44)
[2020-09-01] MEDS ORDERED: REMDESIVIR 100 MG in 0.9 % SODIUM CHLORIDE 250 ML IV SCH (13:00)
--- NOTE | 2020-09-01 13:14 | Cat Scan Report ---
CLINICAL INFORMATION: Code stroke COMPARISON: Head CT 04/01/2009 TECHNIQUE: 2.5 mm helical slices were obtained in the skull base to vertex. Following reconstruction, axial reformatted images were reviewed at bone and parenchymal windows. The exam was performed using radiation dose optimization techniques including, but not limited to, automated exposure control, adjustment of the mA and/or kV according to patient size and use of iterative reconstruction technique. FINDINGS: The ventricles, sulci, fissures, and cisterns are symmetrically enlarged compatible with mild age-related atrophy. This has progressed.. No extra-axial fluid collections are identified. 14 mm remote lacunar infarct in the anterior limb of the right internal capsule and right lentiform nucleus and 6 mm remote lacunar infarct in the medial right temporal region are new from the remote study. Patchy chronic ischemic changes throughout white matter are expected for age. There is no intracerebral hemorrhage, mass effect, edema or other acute finding. Bone windows show no osseous abnormality. IMPRESSION: Mild atrophy with chronic ischemic changes in the deep cerebral white matter - expected for age and progressed from the remote study over 11 years ago. 14 mm remote lacunar infarct in the right anterior limb internal capsule and 6 mm remote lacunar infarct medial right temporal lobe. No hemorrhage, edema or other acute finding ICU called with report 09/01/2020 1309 hours - [place] Interpreted and Authenticated by: Raffy Charles 09/01/20
--- NOTE | 2020-09-01 14:35 | Internal Med Progress Note ---
SUBJECTIVE Subjective Patient information: Note initiated : 09/01/20 at 2:24 pm Service Date, if different from initiated Date: [] Patient: Gloria Rose a 85 y/o F admitted on 08/26/20 for SOB . Chief Complaint: [] Interval history: history of present illness: Ms. Rose is a 85 year old F Presents the ED from [facility]. Patient was sent in for shortness of breath hypoxia she said her saturations were 82% on room air. She also note increased swelling in her legs. She has some nausea. A little bit of cough that she says is clear phlegm. She sleeps and naps in recliner for several years. She complains of worsening orthopnea lately. In the ED she was found to have a A. fib with mildly elevated ventricular rate in the 110's. Respiratory showing pulmonary edema. Case was discussed with cardiology. No aggressive interventions needed, recommended rate control and diuresis. She required 2 L of oxygen which is new. No prior diagnosis of atrial fibrillation. 08/27 Patient on 3 L of oxygen. Occasional cough. Some shortness of breath. Gets anxious at times. Rate controlled. Electrolytes improved. Takes shallow breaths. 08/28 CT chest w/ contrast showed bilateral nonspecific ground glass opacities, more consistent with pneumonia and ARDS than CHF. COVID PCR ordered, started dexamethasone pending COVID PCR results. Ceftriaxone and doxycycline. Discontinued IV lasix and restarted home oral lasix. 08/29 COVID PCR positive, continue dexamethasone and started remdesivir. Continued abx for now. Overall clinical improvement. 08/30 Gradual improvement, per report the patient was diagnosed with COVID in June. Not clear why COVID PCR is positive now, some patient have persistent positive and now there are reports of new variants of COVID infections. Procalcitonin normal range, discontinued antibiotics. 08/31 09/01 Decreased mentation in the morning suspect to be medication related. CO2 retention and transferred to PCU with BiPAP. 09/02 Review of Systems: denies headache/fever/chills/nausea/vomiting/chest or abdominal pain/diarrhea. Otherwise see above. Constitutional Vitals: Vital Signs Temp Pulse Resp BP Pulse Ox 97.0 F 71 22 119/62 95 09/01/20 11:00 09/01/20 13:16 09/01/20 13:16 09/01/20 11:00 09/01/20 13:16 Period Temp Pulse Resp BP Sys/Morejon Pulse Ox Last 24 Hr 96.9 F-98.2 F 54-81 12-24 119-155/43-84 90-95 Intake and Output 09/01/20 09/01/20 09/01/20 05:59 13:59 21:59 Intake Total 100 120 Output Total 1 Balance 99 120 Intake & Output: Intake & Output 09/01/20 09/01/20 09/01/20 05:59 13:59 21:59 Intake Total 100 120 Output Total 1 Balance 99 120 Intake: Oral 100 120 Output: # of times incontinent of urine 1 Other: Percent of Meal Consumed Refused Urine Appearance Cloudy Urine Odor Normal # Voids 2 Exam: General: Alert, Awake, No acute Distress, obese Eyes/N/T: EOMI, Head/Neck: neck supple, jvd CV: irreg irreg, No murmurs, Pulm: rales b/l improving, no wheezing Abd: soft, nontender, Ext: no clubbing/cyanosis, Neuro: Alert, no focal deficits, moves all extremities, Skin: warm/dry OBJ DATA Labs CBC & Chem 7: 09/01/20 07:15 09/01/20 07:15 Labs: Abnormal Lab Results 09/01/20 09/01/20 09/01/20 11:02 07:15 07:15 WBC MCHC 28.8 L RDW 15.9 H Lymph # (Auto) 1.41 L Keith # (Auto) Absolute Neutrophils ABG Methemoglobin 0.3 L Carboxyhemoglobin 11.7 H Total Hemoglobin 11.6 L BUN 29 H Glucose 109 H Calcium AST Albumin Albumin/Globulin Ratio 08/31/20 08/31/20 08/30/20 05:27 05:27 04:27 WBC 12.3 H MCHC 29.8 L 29.2 L RDW 15.4 H 15.6 H Lymph # (Auto) Keith # (Auto) 1.43 H Absolute Neutrophils 8.75 H ABG Methemoglobin Carboxyhemoglobin Total Hemoglobin BUN 24 H Glucose Calcium AST 56 H Albumin 3.0 L Albumin/Globulin Ratio 0.8 L 08/30/20 04:27 WBC MCHC RDW Lymph # (Auto) Keith # (Auto) Absolute Neutrophils ABG Methemoglobin Carboxyhemoglobin Total Hemoglobin BUN 28 H Glucose Calcium 8.4 L AST Albumin Albumin/Globulin Ratio Meds: Medications Acetaminophen (Tylenol) 650 mg PO Q6HP PRN PRN Reason: PAIN/FEVER > 101 Albuterol Sulfate (Ventolin) 2 puff INH ACHS [facility] Albuterol/Ipratropium (Duoneb) 3 ml NEB Q4HP PRN PRN Reason: Shortness Of Breath Apixaban (Eliquis) 5 mg PO BID [facility] Artificial Tears (Refresh Celluvisc) 1 each OU PRN PRN PRN Reason: Dry Eyes Dexamethasone (Decadron) 6 mg PO DAILY [facility] Docusate Sodium (Colace) 100 mg PO BID [facility] Enalaprilat (Vasotec) 0 mg IV Q2HP PRN PRN Reason: Hypertension Fluticasone Propionate (Flovent Hfa 110mcg) 1 puff INH BID [facility] Furosemide (Lasix) 20 mg PO QAM [facility] Hydroxyzine HCl (Atarax) 50 mg PO TIDP PRN PRN Reason: anxiety Sodium Chloride (Sodium Chloride 0.9%) 1,000 mls @ 50 mls/hr IV .Q20H [facility] Stop: 09/01/20 17:43 Last Admin: 09/01/20 12:58 Dose: 50 mls/hr Documented by: Magnesium Sulfate (Magnesium Sulfate) 2 gm in 50 mls @ 50 mls/hr IV UD PRN PRN Reason: Magnesium </= 1.6 Potassium Chloride 40 meq/ (Dextrose) 520 mls @ 130 mls/hr IV UD PRN PRN Reason: Potassium < 3 Lactobacillus Rhamnosus (Culturelle) 1 cap PO BID [facility] Levetiracetam (Keppra) 750 mg PO BID [facility] Levothyroxine Sodium (Synthroid) 100 mcg PO QAMAC [facility] Lisinopril (Zestril) 20 mg PO DAILY [facility] Melatonin (Melatonin 3mg Tablet) 3 mg PO HS [facility] Metoprolol Succinate (Toprol Xl) 25 mg PO DAILY [facility] Metoprolol Tartrate (Lopressor) 5 mg IV Q2HP PRN PRN Reason: Tachyarrhythmias HR>110 Ondansetron HCl (Zofran) 4 mg IV Q4HP PRN PRN Reason: Nausea And Vomiting Pantoprazole Sodium (Protonix) 40 mg PO QAMAC [facility] Potassium Chloride (Kdur) 40 meq PO UD PRN PRN Reason: Potssium is 3-3.5 Potassium Chloride (Kdur) 40 meq PO UD PRN PRN Reason: Potassium < 3 Senna (Senokot) 2 tab PO DAILYP PRN PRN Reason: Constipation Sodium Chloride (Saline Flush) 10 ml IV Q8 [facility] Last Admin: 09/01/20 13:11 Dose: Not Given Documented by: Venlafaxine HCl (Effexor Xr) 150 mg PO DAILY [facility] ABG Interpretation ABG results: 09/01/20 11:02 ABG Methemoglobin 0.3 L VBG pH 7.27 VBG pCO2 67.8 VBG pO2 69.5 VBG HCO3 30.4 VBG Total CO2 32.5 VBG O2 Saturation 83.3 VBG Base Excess 2 A/P Narrative A/P Narrative: A: #AMS(drowsy) w/CO2 retention: possible medication etiology vs ?seizure with post-ictal phase -CT brain no acute, old infarcts #Acute hypoxic respiratory failure: - #Positive COVID PCR: persistent positive (from June COVID illness) vs reinfection (rare) #Paroxysmal afib: resolved now in sinus rhythm #Acute on chronic diastolic heart failure: resolved #Hypomagnesemia: resolved #HTN: #Depression/anxiety: #Seizure disorder: #GERD: #Chronic pain: #Obesity: P: -gentle IVF while npo -Bipap, f/u ABG -Dexamethasone, remdesivir finished -home keppra (has potential for somnolence) -home lasix 20 mg daily -BB, ACEI -Wean oxygen, IS -PT/OT -transfer to med/surg -ppx: eliquis/home PPI DNR Time Spent With Patient Time: Total time spent is greater than 50% in coordination of care (as documented) at patient's floor/unit and/or counseling patient: QUALITY VTE Deep Vein Thrombosis/Pulmonary Embolism Present on Admission: No
--- NOTE | 2020-09-01 17:55 | Internal Med Progress Note ---
SUBJECTIVE Subjective Patient information: Note initiated : 09/01/20 at 5:53 pm Service Date, if different from initiated Date: [] Patient: Gloria Rose 85 y/o F admitted on 08/26/20 for SOB . Chief Complaint: [] Interval history: Presents the ED from [facility]. Patient was sent in for shortness of breath hypoxia she said her saturations were 82% on room air. She also note increased swelling in her legs. She has some nausea. A little bit of cough that she says is clear phlegm. She sleeps and naps in recliner for several years. She complains of worsening orthopnea lately. In the ED she was found to have a A. fib with mildly elevated ventricular rate in the 110's. Respiratory showing pulmonary edema. Case was discussed with cardiology. No aggressive interventions needed, recommended rate control and diuresis. She required 2 L of oxygen which is new. No prior diagnosis of atrial fibrillation. 08/27 Patient on 3 L of oxygen. Occasional cough. Some shortness of breath. Gets anxious at times. Rate controlled. Electrolytes improved. Takes shallow breaths. 08/28 CT chest w/ contrast showed bilateral nonspecific ground glass opacities, more consistent with pneumonia and ARDS than CHF. COVID PCR ordered, started dexamethasone pending COVID PCR results. Ceftriaxone and doxycycline. Discontinued IV lasix and restarted home oral lasix. 08/29 COVID PCR positive, continue dexamethasone and started remdesivir. Continued abx for now. Overall clinical improvement. 08/30 Gradual improvement, per report the patient was diagnosed with COVID in June. Not clear why COVID PCR is positive now, some patient have persistent positive and now there are reports of new variants of COVID infections. Procalcitonin normal range, discontinued antibiotics. 08/31 About the same as yesterday, chest xray markedly improved, onging discharge planning. 09/01 Very drowsy this morning, received ativan prn, benadryl prn, and melatonin for sleep last night. VBG w/ CO retention, started BiPAP and transfer to PCU status. Constitutional Vitals: Vital Signs Temp Pulse Resp BP Pulse Ox 97.9 F 67 22 100/57 96 09/01/20 16:31 09/01/20 16:31 09/01/20 17:01 09/01/20 17:01 09/01/20 17:35 Period Temp Pulse Resp BP Sys/Morejon Pulse Ox Last 24 Hr 96.9 F-98.1 F 54-81 12-29 89-142/43-79 80-99 Intake and Output 09/01/20 09/01/20 09/01/20 05:59 13:59 21:59 Intake Total 100 120 250 Output Total 1 Balance 99 120 250 Intake & Output: Intake & Output 09/01/20 09/01/20 09/01/20 05:59 13:59 21:59 Intake Total 100 120 250 Output Total 1 Balance 99 120 250 Intake: IV 250 Veklury 100 mg In Sodium 250 Chloride 0.9% 250 ml @ 500 mls/ hr IV DAILY@1300 ELO Rx#: [id number] Oral 100 120 Output: # of times incontinent of urine 1 Other: Percent of Meal Consumed Refused Urine Appearance Cloudy Urine Odor Normal # Voids 2 Head Head exam: Present atraumatic and normal inspection Eye Eye exam: Present normal appearance Neck Neck exam: Present full ROM Respiratory Respiratory exam: Present accessory muscle use and respiratory distress Cardiovascular Cardiovascular exam: Present normal rate and rhythm GI/Abdominal GI/Abdominal exam: Present soft; Absent tenderness Neurological Exam Neurological exam: Present altered Psychiatric Psychiatric exam: Absent agitated and anxious OBJ DATA Labs CBC & Chem 7: 09/01/20 07:15 09/01/20 07:15 Labs: Abnormal Lab Results 09/01/20 09/01/20 09/01/20 11:02 07:15 07:15 WBC MCHC 28.8 L RDW 15.9 H Lymph # (Auto) 1.41 L Brantley # (Auto) Absolute Neutrophils ABG Methemoglobin 0.3 L Carboxyhemoglobin 11.7 H Total Hemoglobin 11.6 L BUN 29 H Glucose 109 H Calcium AST Albumin Albumin/Globulin Ratio 08/31/20 08/31/20 08/30/20 05:27 05:27 04:27 WBC 12.3 H MCHC 29.8 L 29.2 L RDW 15.4 H 15.6 H Lymph # (Auto) Brantley # (Auto) 1.43 H Absolute Neutrophils 8.75 H ABG Methemoglobin Carboxyhemoglobin Total Hemoglobin BUN 24 H Glucose Calcium AST 56 H Albumin 3.0 L Albumin/Globulin Ratio 0.8 L 08/30/20 04:27 WBC MCHC RDW Lymph # (Auto) Brantley # (Auto) Absolute Neutrophils ABG Methemoglobin Carboxyhemoglobin Total Hemoglobin BUN 28 H Glucose Calcium 8.4 L AST Albumin Albumin/Globulin Ratio Meds: Medications Acetaminophen (Tylenol) 650 mg PO Q6HP PRN PRN Reason: PAIN/FEVER > 101 Albuterol Sulfate (Ventolin) 2 puff INH ACHS [facility] Last Admin: 09/01/20 17:05 Dose: 2 puff Documented by: Albuterol/Ipratropium (Duoneb) 3 ml NEB Q4HP PRN PRN Reason: Shortness Of Breath Apixaban (Eliquis) 5 mg PO BID [facility] Artificial Tears (Refresh Celluvisc) 1 each OU PRN PRN PRN Reason: Dry Eyes Dexamethasone (Decadron) 6 mg PO DAILY [facility] Docusate Sodium (Colace) 100 mg PO BID [facility] Enalaprilat (Vasotec) 0 mg IV Q2HP PRN PRN Reason: Hypertension Fluticasone Propionate (Flovent Hfa 110mcg) 1 puff INH BID [facility] Furosemide (Lasix) 20 mg PO QAM [facility] Hydroxyzine HCl (Atarax) 50 mg PO TIDP PRN PRN Reason: anxiety Sodium Chloride (Sodium Chloride 0.9%) 1,000 mls @ 50 mls/hr IV .Q20H [facility] Stop: 09/02/20 08:43 Last Admin: 09/01/20 12:58 Dose: 50 mls/hr Documented by: Magnesium Sulfate (Magnesium Sulfate) 2 gm in 50 mls @ 50 mls/hr IV UD PRN PRN Reason: Magnesium </= 1.6 Potassium Chloride 40 meq/ (Dextrose) 520 mls @ 130 mls/hr IV UD PRN PRN Reason: Potassium < 3 Lactobacillus Rhamnosus (Culturelle) 1 cap PO BID [facility] Levetiracetam (Keppra) 750 mg PO BID [facility] Levothyroxine Sodium (Synthroid) 100 mcg PO QAMAC [facility] Lisinopril (Zestril) 20 mg PO DAILY [facility] Melatonin (Melatonin 3mg Tablet) 3 mg PO HS [facility] Metoprolol Succinate (Toprol Xl) 25 mg PO DAILY [facility] Metoprolol Tartrate (Lopressor) 5 mg IV Q2HP PRN PRN Reason: Tachyarrhythmias HR>110 Ondansetron HCl (Zofran) 4 mg IV Q4HP PRN PRN Reason: Nausea And Vomiting Pantoprazole Sodium (Protonix) 40 mg PO QAMAC [facility] Potassium Chloride (Kdur) 40 meq PO UD PRN PRN Reason: Potssium is 3-3.5 Potassium Chloride (Kdur) 40 meq PO UD PRN PRN Reason: Potassium < 3 Senna (Senokot) 2 tab PO DAILYP PRN PRN Reason: Constipation Sodium Chloride (Saline Flush) 10 ml IV Q8 [facility] Last Admin: 09/01/20 13:11 Dose: Not Given Documented by: Venlafaxine HCl (Effexor Xr) 150 mg PO DAILY [facility] ABG Interpretation ABG results: 09/01/20 11:02 ABG Methemoglobin 0.3 L VBG pH 7.27 VBG pCO2 67.8 VBG pO2 69.5 VBG HCO3 30.4 VBG Total CO2 32.5 VBG O2 Saturation 83.3 VBG Base Excess 2 A/P Narrative A/P Narrative: ASSESSMENT: 85 year old female with HTN, depression/anxiety, seizure disorder, GERD, obesity admitted for acute hypoxic respiratory failure initially felt to be secondary to congestive heart failure in the setting of atrial fibrillation with RVR however subsequent workup with CT chest w/ contrast was more suggestive of pneumonia or ARDS. Initial management was diuresis with IV lasix however after a couple of days the patient did not continue to improve as expected with CHF. COVID PCR was positive, the patient was started on dexamethasone and remdesivir and transitioned back to her home oral lasix. ECHO showed LV EF 65%, grade I diastolic dysfunction, moderate to severe TR, suggestive of severe pulmonary hypertension. In hindsite more likely to be CHF since she reportedly had COVID in June. #Altered mental status w/ hypercapnia #Acute hypoxic respiratory failure-improved oxygen requirement #Positive COVID PCR-persistent positive (from June COVID illness) vs reinfection (rare) #Paroxysmal afib-resolved now in sinus rhythm #Acute on chronic diastolic heart failure-resolved #Hypomagnesemia-resolved #HTN: #Depression/anxiety: #Seizure disorder: #GERD: #Chronic pain: #Obesity: P: -BiPAP, monitor in PCU, f/u VBG -home lasix 20 mg daily -BB, ACEI -Wean oxygen, IS -PT/OT -ppx: eliquis/home PPI -DNR Time Spent With Patient Time: Total time spent is greater than 50% in coordination of care (as documented) at patient's floor/unit and/or counseling patient: QUALITY VTE Deep Vein Thrombosis/Pulmonary Embolism Present on Admission: No
[2020-09-01] MEDS: ARIPIPRAZOLE 5 MG TABLET PO SCH (20:39)
[2020-09-01] MEDS: MELATONIN 3 MG TABLET PO SCH (20:40)
[2020-09-01] MEDS ORDERED: MELATONIN 3 MG TABLET PO SCH (21:00)
[2020-09-01] MEDS ORDERED: levETIRAcetam 500 MG TABLET PO SCH (21:00)
[2020-09-02] MEDS: 0.9 % SODIUM CHLORIDE 10 ML SYRINGE IV SCH ×3 (05:47→21:29)
--- NOTE | 2020-09-02 07:46 | Internal Med Progress Note ---
SUBJECTIVE Subjective Patient information: Note initiated : 09/02/20 at 7:39 am Service Date, if different from initiated Date: [] Patient: Gloria Rose 85 y/o F admitted on 08/26/20 for SOB . Chief Complaint: [] Interval history: Presents the ED from [facility]. Patient was sent in for shortness of breath hypoxia she said her saturations were 82% on room air. She also note increased swelling in her legs. She has some nausea. A little bit of cough that she says is clear phlegm. She sleeps and naps in recliner for several years. She complains of worsening orthopnea lately. In the ED she was found to have a A. fib with mildly elevated ventricular rate in the 110's. Respiratory showing pulmonary edema. Case was discussed with cardiology. No aggressive interventions needed, recommended rate control and diuresis. She required 2 L of oxygen which is new. No prior diagnosis of atrial fibrillation. 08/27 Patient on 3 L of oxygen. Occasional cough. Some shortness of breath. Gets anxious at times. Rate controlled. Electrolytes improved. Takes shallow breaths. 08/28 CT chest w/ contrast showed bilateral nonspecific ground glass opacities, more consistent with pneumonia and ARDS than CHF. COVID PCR ordered, started dexamethasone pending COVID PCR results. Ceftriaxone and doxycycline. Discontinued IV lasix and restarted home oral lasix. 08/29 COVID PCR positive, continue dexamethasone and started remdesivir. Continued abx for now. Overall clinical improvement. 08/30 Gradual improvement, per report the patient was diagnosed with COVID in June. Not clear why COVID PCR is positive now, some patient have persistent positive and now there are reports of new variants of COVID infections. Procalcitonin normal range, discontinued antibiotics. 08/31 About the same as yesterday, chest xray markedly improved, onging discharge planning. 09/01 Very drowsy this morning, received ativan prn, benadryl prn, and melatonin for sleep last night. VBG w/ CO retention, started BiPAP and transfer to PCU status. 09/02 Patient awake and doing well. She took off her BiPAP. EEG still shows CO2 retention with a low pH but her mentation is significantly improved. She does admit to feeling that sometimes food or liquid goes down the wrong pipe. Follow-up chest x-ray today did show a right-sided infiltrate. No leukoc ytosis afebrile. She does admit to some coughing and shortness of breath, But otherwise no complaints Review of Systems: denies headache/fever/chills/nausea/vomiting/chest or abdominal pain/cough/dy spnea/diarrhea. Otherwise see above. Constitutional Vitals: Vital Signs Temp Pulse Resp BP Pulse Ox 97.2 F 68 13 118/67 97 09/02/20 00:11 09/02/20 05:00 09/02/20 06:01 09/02/20 06:01 09/02/20 06:01 Period Temp Pulse Resp BP Sys/Morejon Pulse Ox Last 24 Hr 96.5 F-98.1 F 66-78 08-02 89-130/49-82 80-100 Intake and Output 09/01/20 09/02/20 09/02/20 21:59 05:59 13:59 Intake Total 250 360 Output Total 1 1 Balance 250 359 -1 Weight 98.611 kg Intake & Output: Intake & Output 09/01/20 09/02/20 09/02/20 21:59 05:59 13:59 Intake Total 250 360 Output Total 1 1 Balance 250 359 -1 Weight 98.611 kg Intake: IV 250 Veklury 100 mg In Sodium 250 Chloride 0.9% 250 ml @ 500 mls/ hr IV DAILY@1300 ELO Rx#: [id number] Oral 360 Output: # of times incontinent of urine 1 1 Other: # Voids 1 Exam: General: Alert, Awake, No acute Distress, obese Eyes/N/T: EOMI, Head/Neck: neck supple, jvd CV: irreg irreg, No murmurs, Pulm: rales b/l improving, no wheezing Abd: soft, nontender, Ext: no clubbing/cyanosis, Neuro: Alert, no focal deficits, moves all extremities, Skin: warm/dry OBJ DATA Labs CBC & Chem 7: 09/02/20 07:45 09/02/20 07:45 Labs: Abnormal Lab Results 09/01/20 09/01/20 09/01/20 11:02 07:15 07:15 MCHC 28.8 L RDW 15.9 H Lymph # (Auto) 1.41 L ABG Methemoglobin 0.3 L Carboxyhemoglobin 11.7 H Total Hemoglobin 11.6 L BUN 29 H Glucose 109 H AST Albumin Albumin/Globulin Ratio 08/31/20 08/31/20 05:27 05:27 MCHC 29.8 L RDW 15.4 H Lymph # (Auto) ABG Methemoglobin Carboxyhemoglobin Total Hemoglobin BUN 24 H Glucose AST 56 H Albumin 3.0 L Albumin/Globulin Ratio 0.8 L Meds: Medications Acetaminophen (Tylenol) 650 mg PO Q6HP PRN PRN Reason: PAIN/FEVER > 101 Albuterol Sulfate (Ventolin) 2 puff INH ACHS [facility] Last Admin: 09/01/20 21:19 Dose: 2 puff Documented by: Albuterol/Ipratropium (Duoneb) 3 ml NEB Q4HP PRN PRN Reason: Shortness Of Breath Apixaban (Eliquis) 5 mg PO BID [facility] Last Admin: 09/01/20 20:40 Dose: 5 mg Documented by: Artificial Tears (Refresh Celluvisc) 1 each OU PRN PRN PRN Reason: Dry Eyes Dexamethasone (Decadron) 6 mg PO DAILY [facility] Docusate Sodium (Colace) 100 mg PO BID [facility] Last Admin: 09/01/20 20:39 Dose: 100 mg Documented by: Enalaprilat (Vasotec) 0 mg IV Q2HP PRN PRN Reason: Hypertension Fluticasone Propionate (Flovent Hfa 110mcg) 1 puff INH BID [facility] Last Admin: 09/01/20 20:40 Dose: Not Given Documented by: Furosemide (Lasix) 20 mg PO QAM [facility] Hydroxyzine HCl (Atarax) 50 mg PO TIDP PRN PRN Reason: anxiety Sodium Chloride (Sodium Chloride 0.9%) 1,000 mls @ 50 mls/hr IV .Q20H [facility] Stop: 09/02/20 08:43 Last Admin: 09/01/20 12:58 Dose: 50 mls/hr Documented by: Magnesium Sulfate (Magnesium Sulfate) 2 gm in 50 mls @ 50 mls/hr IV UD PRN PRN Reason: Magnesium </= 1.6 Potassium Chloride 40 meq/ (Dextrose) 520 mls @ 130 mls/hr IV UD PRN PRN Reason: Potassium < 3 Lactobacillus Rhamnosus (Culturelle) 1 cap PO BID [facility] Last Admin: 09/01/20 20:40 Dose: 1 cap Documented by: Levetiracetam (Keppra) 750 mg PO BID [facility] Levothyroxine Sodium (Synthroid) 100 mcg PO QAMAC [facility] Lisinopril (Zestril) 20 mg PO DAILY [facility] Melatonin (Melatonin 3mg Tablet) 3 mg PO HS [facility] Last Admin: 09/01/20 20:40 Dose: 3 mg Documented by: Metoprolol Succinate (Toprol Xl) 25 mg PO DAILY [facility] Metoprolol Tartrate (Lopressor) 5 mg IV Q2HP PRN PRN Reason: Tachyarrhythmias HR>110 Ondansetron HCl (Zofran) 4 mg IV Q4HP PRN PRN Reason: Nausea And Vomiting Pantoprazole Sodium (Protonix) 40 mg PO QAMAC [facility] Potassium Chloride (Kdur) 40 meq PO UD PRN PRN Reason: Potssium is 3-3.5 Potassium Chloride (Kdur) 40 meq PO UD PRN PRN Reason: Potassium < 3 Senna (Senokot) 2 tab PO DAILYP PRN PRN Reason: Constipation Sodium Chloride (Saline Flush) 10 ml IV Q8 [facility] Last Admin: 09/02/20 05:47 Dose: Not Given Documented by: Venlafaxine HCl (Effexor Xr) 150 mg PO DAILY [facility] ABG Interpretation ABG results: 09/01/20 11:02 ABG Methemoglobin 0.3 L VBG pH 7.27 VBG pCO2 67.8 VBG pO2 69.5 VBG HCO3 30.4 VBG Total CO2 32.5 VBG O2 Saturation 83.3 VBG Base Excess 2 A/P Narrative A/P Narrative: A: #AMS(drowsy) w/CO2 retention: possible medication etiology vs ?seizure with post-ictal phase. -CT brain no acute, old infarcts -Improved #Acute hypoxic/hypercapnic respiratory failure: -off bipap to 4L NC with high sats -CXR with right side infiltrates(?aspiration, no fever/leukocytosis), edema improved #Suspected aspiration: #Positive COVID PCR: persistent positive (from June COVID illness) vs reinfection (rare) #Paroxysmal afib: resolved now in sinus rhythm #Acute on chronic diastolic(I) CHF: resolved #Severe Pulm HTN: #Hypomagnesemia: resolved #HTN: #Depression/anxiety: #Seizure disorder: on keppra #GERD: #Chronic pain: #Obesity: #COPD: on fluticasone bid P: -off Bipap, f/u VBG -IS, wean O2 -Dexamethasone, remdesivir finished -home keppra (has potential for somnolence) -home lasix 20 mg daily -BB/ACEI (decreased to 10mg for low-norm bp) -ST eval -PT/OT -f/u with Cardiology -ppx: eliquis/home PPI DNR Time Spent With Patient Time: Total time spent is greater than 50% in coordination of care (as documented) at patient's floor/unit and/or counseling patient: QUALITY VTE Deep Vein Thrombosis/Pulmonary Embolism Present on Admission: No
[2020-09-02] MEDS: ACETAMINOPHEN 325 MG TABLET PO PRN ×3 (07:56→21:40)
[2020-09-02] MEDS: APIXABAN 5 MG TABLET PO SCH ×2 (08:23→20:23)
[2020-09-02] MEDS: FUROSEMIDE 20 MG TABLET PO SCH (08:23)
[2020-09-02] MEDS: VENLAFAXINE 150 MG CAP.XL.24H PO SCH (08:24)
[2020-09-02] MEDS: LACTOBACILLUS 1 CAPSULE PO SCH ×2 (08:24→20:23)
[2020-09-02] MEDS: DEXAMETHASONE 4 MG TABLET PO SCH (08:24)
[2020-09-02] MEDS: PANTOPRAZOLE 40 MG TABLET PO SCH (08:25)
[2020-09-02] MEDS: DOCUSATE SODIUM 100 MG CAPSULE PO SCH ×2 (08:25→20:23)
[2020-09-02] MEDS: LEVOTHYROXINE 100 MCG TABLET PO SCH (08:26)
[2020-09-02] MEDS ORDERED: LISINOPRIL 20 MG TABLET PO SCH (09:00)
[2020-09-02] MEDS: ALBUTEROL SULFATE 200 PUFF INHALER INH SCH ×4 (09:19→20:47)
[2020-09-02 09:50] LABS: Basophils # (Auto) 0.04 K/mcL (0.00-0.20); Basophils % (Auto) 0.4 % (0.0-2.0); Eosinophils % (Auto) 2.2 % (0.0-7.0); Hematocrit 40.5 % (36.0-48.0); Hemoglobin 11.3 g/dL (12.0-15.0); Lymphocytes # (Auto) 1.11 K/mcL (1.50-4.80); Lymphocytes % (Auto) 12.3 % (15.0-49.0); Mean Cell Volume 98.3 fL (80.0-100.0); Mean Corpuscular HGB Conc 27.9 g/dL (31.0-36.0); Mean Platelet Volume 9.5 fL (7.4-10.4); Monocytes # (Auto) 0.81 K/mcL (0.10-0.90); Neutrophils % (Auto) 76.1 % (38.0-78.0); Platelet Count 330 K/mcL (140-440); RBC 4.12 M/mcL (4.00-5.20); Red Cell Distribution Width 15.6 % (11.5-14.5)
[2020-09-02 09:56] LABS: Blood Urea Nitrogen 30 mg/dL (8-23); Calcium 7.9 mg/dL (8.6-10.4); Carbon Dioxide 32 mmol/L (22-30); Chloride 100 mmol/L (96-108); Glomerular Filtration Rate 80; Glucose 85 mg/dL (70-105)
--- NOTE | 2020-09-02 10:28 | XRay Report ---
CLINICAL INFORMATION: co2 retention COMPARISON: 08/31/2020 FINDINGS: Cardiomegaly is unchanged. Mediastinum is unremarkable. Pulmonary vessels are returned to normal in caliber. Moderate patchy airspace disease in the right mid lung and left base persists and may represent infection or aspiration. Small bilateral pleural effusions persist IMPRESSION: No evidence of CHF. Moderate vague patchy airspace disease right mid lung and left base. Consider aspiration or infection. Interpreted and Authenticated by: Raffy Charles 09/02/20
[2020-09-02] MEDS: FLUTICASONE HFA 110MCG INHALER INH SCH ×2 (10:36→20:47)
[2020-09-02 12:48] LABS: ABG Methemoglobin 0.3 % (0.4-1.5); Total Hemoglobin 10.9 gm/Dl (13.5-16.5); VBG Base Excess 6 (-2-3); VBG HCO3 32.9 mmol/L; VBG Oxygen Saturation 91.6 %; VBG PCO2 62.6 mmHg; VBG PH 7.34 U; VBG PO2 149.4 mmHg; VBG Total CO2 34.8 mmol/L
[2020-09-02] MEDS: METOPROLOL SUCCINATE 25 MG TAB.XL.24H PO SCH (13:05)
[2020-09-02] MEDS: ARIPIPRAZOLE 5 MG TABLET PO SCH (20:23)
[2020-09-02] MEDS: MELATONIN 3 MG TABLET PO SCH (20:23)
[2020-09-02] MEDS: levETIRAcetam 500 MG TABLET PO SCH (20:24)
[2020-09-03] MEDS: 0.9 % SODIUM CHLORIDE 10 ML SYRINGE IV SCH ×3 (05:34→21:56)
[2020-09-03 06:30] LABS: Basophils # (Auto) 0.03 K/mcL (0.00-0.20); Basophils % (Auto) 0.3 % (0.0-2.0); Eosinophils % (Auto) 2.8 % (0.0-7.0); Hematocrit 41.3 % (36.0-48.0); Hemoglobin 11.5 g/dL (12.0-15.0); Lymphocytes # (Auto) 1.63 K/mcL (1.50-4.80); Lymphocytes % (Auto) 15.2 % (15.0-49.0); Mean Cell Volume 96.7 fL (80.0-100.0); Mean Corpuscular HGB Conc 27.8 g/dL (31.0-36.0); Mean Platelet Volume 9.4 fL (7.4-10.4); Monocytes # (Auto) 0.98 K/mcL (0.10-0.90); Monocytes % (Auto) 9.2 % (1.0-12.0); Neutrophils % (Auto) 72.5 % (38.0-78.0); Platelet Count 346 K/mcL (140-440); RBC 4.27 M/mcL (4.00-5.20); Red Cell Distribution Width 15.6 % (11.5-14.5); WBC 10.7 K/mcL (4.5-11.0)
[2020-09-03 07:26] LABS: ALT/SGPT 33 U/L (<40); AST/SGOT 35 U/L (<32); Albumin 2.9 gm/dL (3.2-5.2); Albumin/Globulin Ratio 0.9 (1.0-2.3); Alkaline Phosphatase 66 U/L (39-117); Bilirubin,Direct < 0.2 mg/dL (<0.3); Bilirubin,Total < 0.2 mg/dL (0.1-1.0); Blood Urea Nitrogen 32 mg/dL (8-23); Calcium 8.3 mg/dL (8.6-10.4); Carbon Dioxide 33 mmol/L (22-30); Chloride 99 mmol/L (96-108); Globulin 3.4 gm/dL (2.2-3.7); Glomerular Filtration Rate 80; Glucose 86 mg/dL (70-105); Lactate Dehydrogenase 248 U/L (135-225); Phosphorous 2.9 mg/dL (2.5-4.5); Triglycerides 54 mg/dL (<150); Uric Acid 6.2 mg/dL (2.5-8.0)
--- NOTE | 2020-09-03 07:45 | Internal Med Progress Note ---
SUBJECTIVE Subjective Patient information: Note initiated : 09/03/20 at 7:40 am Service Date, if different from initiated Date: [] Patient: Gloria Rose 85 y/o F admitted on 08/26/20 for SOB . Chief Complaint: [] Interval history: Presents the ED from [facility]. Patient was sent in for shortness of breath hypoxia she said her saturations were 82% on room air. She also note increased swelling in her legs. She has some nausea. A little bit of cough that she says is clear phlegm. She sleeps and naps in recliner for several years. She complains of worsening orthopnea lately. In the ED she was found to have a A. fib with mildly elevated ventricular rate in the 110's. Respiratory showing pulmonary edema. Case was discussed with cardiology. No aggressive interventions needed, recommended rate control and diuresis. She required 2 L of oxygen which is new. No prior diagnosis of atrial fibrillation. 08/27 Patient on 3 L of oxygen. Occasional cough. Some shortness of breath. Gets anxious at times. Rate controlled. Electrolytes improved. Takes shallow breaths. 08/28 CT chest w/ contrast showed bilateral nonspecific ground glass opacities, more consistent with pneumonia and ARDS than CHF. COVID PCR ordered, started dexamethasone pending COVID PCR results. Ceftriaxone and doxycycline. Discontinued IV lasix and restarted home oral lasix. 08/29 COVID PCR positive, continue dexamethasone and started remdesivir. Continued abx for now. Overall clinical improvement. 08/30 Gradual improvement, per report the patient was diagnosed with COVID in June. Not clear why COVID PCR is positive now, some patient have persistent positive and now there are reports of new variants of COVID infections. Procalcitonin normal range, discontinued antibiotics. 08/31 About the same as yesterday, chest xray markedly improved, onging discharge planning. 09/01 Very drowsy this morning, received ativan prn, benadryl prn, and melatonin for sleep last night. VBG w/ CO retention, started BiPAP and transfer to PCU status. 09/02 Patient awake and doing well. She took off her BiPAP. EEG still shows CO2 retention with a low pH but her mentation is significantly improved. She does admit to feeling that sometimes food or liquid goes down the wrong pipe. Follow-up chest x-ray today did show a right-sided infiltrate. No leukoc ytosis afebrile. She does admit to some coughing and shortness of breath, But otherwise no complaints 09/03 Patient doing well off BiPAP. On 2 L nasal cannula. Feeling better. Not much of a cough. Mild shortness of breath. Review of Systems: denies headache/fever/chills/nausea/vomiting/chest or abdominal pain/diarrhea. Otherwise see above. Constitutional Vitals: Vital Signs Temp Pulse Resp BP Pulse Ox 97.6 F 75 21 123/65 100 09/03/20 04:47 09/03/20 06:01 09/03/20 06:01 09/03/20 06:01 09/03/20 06:01 Period Temp Pulse Resp BP Sys/Morejon Pulse Ox Last 24 Hr 97.5 F-98.2 F 60-84 19-33 101-131/48-79 92-100 Intake and Output 09/02/20 09/03/20 09/03/20 21:59 05:59 13:59 Intake Total 1600 Output Total 226 225 Balance -226 1375 Weight 98.067 kg Intake & Output: Intake & Output 09/02/20 09/03/20 09/03/20 21:59 05:59 13:59 Intake Total 1600 Output Total 226 225 Balance -226 1375 Weight 98.067 kg Intake: IV 1000 Sodium Chloride 0.9% 1,000 ml @ 1000 50 mls/hr IV .Q20H ELO Rx#: [id number] Oral 600 Output: Void Amount 225 225 # of times incontinent of urine 1 Other: Meal Dinner Percent of Meal Consumed 50% Feeding Ability Independent Urine Appearance Clear Urine Color Dark Yellow Stool Size Large Stool Color Brown Yellow Stool Consistency Soft Loose # Voids 1 # Bowel Movements 1 # of times incontinent of 0 1 Bowels Exam: General: Alert, Awake, No acute Distress, obese Eyes/N/T: EOMI, Head/Neck: neck supple, CV: irreg irreg, No murmurs, Pulm: mild basilar rales, no wheezing Abd: soft, nontender, Ext: no clubbing/cyanosis, mild b/l LE edema Neuro: Alert, no focal deficits, moves all extremities, Skin: warm/dry OBJ DATA Labs CBC & Chem 7: 09/03/20 05:22 09/03/20 05:22 Labs: Abnormal Lab Results 09/03/20 09/03/20 09/02/20 05:22 05:22 12:27 Hgb 11.5 L MCHC 27.8 L RDW 15.6 H Lymph % (Auto) Lymph # (Auto) Bowman # (Auto) 0.98 H ABG Methemoglobin 0.3 L VBG Base Excess 6 H Carboxyhemoglobin 7.5 H Total Hemoglobin 10.9 L Carbon Dioxide 33 H Anion Gap 6.0 L BUN 32 H Glucose Calcium 8.3 L AST 35 H Lactate Dehydrogenase 248 H C-Reactive Protein Albumin 2.9 L Albumin/Globulin Ratio 0.9 L 09/02/20 09/02/20 09/02/20 07:45 07:45 07:45 Hgb 11.3 L MCHC 27.9 L RDW 15.6 H Lymph % (Auto) 12.3 L Lymph # (Auto) 1.11 L Bowman # (Auto) ABG Methemoglobin VBG Base Excess Carboxyhemoglobin Total Hemoglobin Carbon Dioxide 32 H Anion Gap BUN 30 H Glucose Calcium 7.9 L AST Lactate Dehydrogenase C-Reactive Protein 1.50 H Albumin Albumin/Globulin Ratio 09/01/20 09/01/20 09/01/20 11:02 07:15 07:15 Hgb MCHC 28.8 L RDW 15.9 H Lymph % (Auto) Lymph # (Auto) 1.41 L Bowman # (Auto) ABG Methemoglobin 0.3 L VBG Base Excess Carboxyhemoglobin 11.7 H Total Hemoglobin 11.6 L Carbon Dioxide Anion Gap BUN 29 H Glucose 109 H Calcium AST Lactate Dehydrogenase C-Reactive Protein Albumin Albumin/Globulin Ratio 08/31/20 05:27 Hgb MCHC RDW Lymph % (Auto) Lymph # (Auto) Bowman # (Auto) ABG Methemoglobin VBG Base Excess Carboxyhemoglobin Total Hemoglobin Carbon Dioxide Anion Gap BUN 24 H Glucose Calcium AST 56 H Lactate Dehydrogenase C-Reactive Protein Albumin 3.0 L Albumin/Globulin Ratio 0.8 L Meds: Medications Acetaminophen (Tylenol) 650 mg PO Q6HP PRN PRN Reason: PAIN/FEVER > 101 Last Admin: 09/02/20 21:40 Dose: 650 mg Documented by: Albuterol Sulfate (Ventolin) 2 puff INH ACHS ELO Last Admin: 09/02/20 20:47 Dose: Not Given Documented by: Albuterol/Ipratropium (Duoneb) 3 ml NEB Q4HP PRN PRN Reason: Shortness Of Breath Apixaban (Eliquis) 5 mg PO BID [facility] Last Admin: 09/02/20 20:23 Dose: 5 mg Documented by: Artificial Tears (Refresh Celluvisc) 1 each OU PRN PRN PRN Reason: Dry Eyes Dexamethasone (Decadron) 6 mg PO DAILY [facility] Last Admin: 09/02/20 08:24 Dose: 6 mg Documented by: Docusate Sodium (Colace) 100 mg PO BID [facility] Last Admin: 09/02/20 20:23 Dose: 100 mg Documented by: Enalaprilat (Vasotec) 0 mg IV Q2HP PRN PRN Reason: Hypertension Fluticasone Propionate (Flovent Hfa 110mcg) 1 puff INH BID [facility] Last Admin: 09/02/20 20:47 Dose: Not Given Documented by: Furosemide (Lasix) 20 mg PO QAM [facility] Last Admin: 09/02/20 08:23 Dose: 20 mg Documented by: Hydroxyzine HCl (Atarax) 50 mg PO TIDP PRN PRN Reason: anxiety Magnesium Sulfate (Magnesium Sulfate) 2 gm in 50 mls @ 50 mls/hr IV UD PRN PRN Reason: Magnesium </= 1.6 Potassium Chloride 40 meq/ (Dextrose) 520 mls @ 130 mls/hr IV UD PRN PRN Reason: Potassium < 3 Lactobacillus Rhamnosus (Culturelle) 1 cap PO BID [facility] Last Admin: 09/02/20 20:23 Dose: 1 cap Documented by: Levetiracetam (Keppra) 750 mg PO BID [facility] Last Admin: 09/02/20 20:24 Dose: 750 mg Documented by: Levothyroxine Sodium (Synthroid) 100 mcg PO QAMAC [facility] Last Admin: 09/02/20 08:26 Dose: 100 mcg Documented by: Lisinopril (Zestril) 10 mg PO DAILY [facility] Melatonin (Melatonin 3mg Tablet) 3 mg PO HS [facility] Last Admin: 09/02/20 20:23 Dose: 3 mg Documented by: Metoprolol Succinate (Toprol Xl) 25 mg PO DAILY [facility] Last Admin: 09/02/20 13:05 Dose: Not Given Documented by: Metoprolol Tartrate (Lopressor) 5 mg IV Q2HP PRN PRN Reason: Tachyarrhythmias HR>110 Ondansetron HCl (Zofran) 4 mg IV Q4HP PRN PRN Reason: Nausea And Vomiting Last Admin: 09/02/20 14:11 Dose: 4 mg Documented by: Pantoprazole Sodium (Protonix) 40 mg PO QAMAC [facility] Last Admin: 09/02/20 08:25 Dose: 40 mg Documented by: Potassium Chloride (Kdur) 40 meq PO UD PRN PRN Reason: Potssium is 3-3.5 Potassium Chloride (Kdur) 40 meq PO UD PRN PRN Reason: Potassium < 3 Senna (Senokot) 2 tab PO DAILYP PRN PRN Reason: Constipation Last Admin: 09/02/20 14:09 Dose: 2 tab Documented by: Sodium Chloride (Saline Flush) 10 ml IV Q8 [facility] Last Admin: 09/03/20 05:34 Dose: 10 ml Documented by: Venlafaxine HCl (Effexor Xr) 150 mg PO DAILY [facility] Last Admin: 09/02/20 08:24 Dose: 150 mg Documented by: ABG Interpretation ABG results: 09/01/20 09/02/20 11:02 12:27 ABG Methemoglobin 0.3 L 0.3 L VBG pH 7.27 7.34 VBG pCO2 67.8 62.6 VBG pO2 69.5 149.4 VBG HCO3 30.4 32.9 VBG Total CO2 32.5 34.8 VBG O2 Saturation 83.3 91.6 VBG Base Excess 2 6 H A/P Narrative A/P Narrative: A: #AMS(drowsy) w/CO2 retention: possible medication etiology vs ?seizure with pos t-ictal phase. -CT brain no acute, old infarcts -REsolved #Acute hypoxic/hypercapnic respiratory failure: IMproved -off bipap to 2L NC -CXR with right side infiltrates(?aspiration, no fever/leukocytosis/pct low), edema improved #Positive COVID PCR: persistent positive (from June COVID illness) vs reinfection (rare) #Paroxysmal afib: resolved now in sinus rhythm #Acute on chronic diastolic(I) CHF: resolved #Severe Pulm HTN: #Hypomagnesemia: resolved #HTN: #Depression/anxiety: #Seizure disorder: on keppra #GERD: #Chronic pain: #Obesity: #COPD: on fluticasone bid P: -IS, wean O2 -Dexamethasone, remdesivir finished -home keppra -home lasix 20 mg daily -BB/ACEI (decreased to 10mg for low-norm bp) -ST eval -PT/OT -f/u with Cardiology -ppx: eliquis/home PPI DNR Time Spent With Patient Time: Total time spent is greater than 50% in coordination of care (as documented) at patient's floor/unit and/or counseling patient: QUALITY VTE Deep Vein Thrombosis/Pulmonary Embolism Present on Admission: No
[2020-09-03] MEDS: PANTOPRAZOLE 40 MG TABLET PO SCH (08:42)
[2020-09-03] MEDS: DOCUSATE SODIUM 100 MG CAPSULE PO SCH ×2 (08:42→21:53)
[2020-09-03] MEDS: VENLAFAXINE 150 MG CAP.XL.24H PO SCH (08:42)
[2020-09-03] MEDS: LEVOTHYROXINE 100 MCG TABLET PO SCH (08:42)
[2020-09-03] MEDS: METOPROLOL SUCCINATE 25 MG TAB.XL.24H PO SCH (08:43)
[2020-09-03] MEDS: LACTOBACILLUS 1 CAPSULE PO SCH ×2 (08:43→21:53)
[2020-09-03] MEDS: FUROSEMIDE 20 MG TABLET PO SCH (08:43)
[2020-09-03] MEDS: levETIRAcetam 500 MG TABLET PO SCH ×2 (08:43→21:53)
[2020-09-03] MEDS: APIXABAN 5 MG TABLET PO SCH ×2 (08:43→21:53)
[2020-09-03] MEDS: DEXAMETHASONE 4 MG TABLET PO SCH (08:44)
[2020-09-03] MEDS ORDERED: LISINOPRIL 10 MG TABLET PO SCH (09:00)
[2020-09-03] MEDS: FLUTICASONE HFA 110MCG INHALER INH SCH ×2 (09:18→21:56)
[2020-09-03] MEDS: ALBUTEROL SULFATE 200 PUFF INHALER INH SCH ×4 (09:18→21:55)
[2020-09-03] MEDS ORDERED: ONDANSETRON 4 MG/2 ML VIAL IV PRN (09:27)
[2020-09-03] MEDS ORDERED: CARBOXYMETHYLCELLULOSE SODIUM 1 EACH DROPER.GEL OU PRN (09:27)
[2020-09-03] MEDS ORDERED: POTASSIUM CHLORIDE 20 MEQ TABLET PO PRN ×2 (09:27)
[2020-09-03] MEDS ORDERED: IPRATROPIUM/ALBUTEROL 3 ML AMPUL.NEB NEB PRN (09:27)
[2020-09-03] MEDS ORDERED: MAGNESIUM SULFATE 2 GM/50 ML BAG IV PRN (09:27)
[2020-09-03] MEDS ORDERED: SENNOSIDES 1 TABLET PO PRN (09:27)
[2020-09-03] MEDS ORDERED: IOPAMIDOL 100 ML BOTTLE IV ONE (09:27)
[2020-09-03] MEDS ORDERED: POTASSIUM CHLORIDE 40 MEQ in DEXTROSE 5% IN WATER 500 ML IV PRN (09:27)
[2020-09-03] MEDS ORDERED: ENALAPRILAT 1.25 MG/ML VIAL IV PRN (09:27)
[2020-09-03] MEDS ORDERED: METOPROLOL TARTRATE 5 MG/5 ML VIAL IV PRN (09:27)
[2020-09-03] MEDS ORDERED: hydrOXYzine 25 MG TABLET PO PRN (09:27)
[2020-09-03] MEDS: ARIPIPRAZOLE 5 MG TABLET PO SCH (21:53)
[2020-09-03] MEDS: MELATONIN 3 MG TABLET PO SCH (21:53)
[2020-09-03] MEDS: ACETAMINOPHEN 325 MG TABLET PO PRN (21:54)
[2020-09-04] MEDS: 0.9 % SODIUM CHLORIDE 10 ML SYRINGE IV SCH ×3 (04:06→21:27)
[2020-09-04] MEDS: ACETAMINOPHEN 325 MG TABLET PO PRN ×2 (05:04→18:52)
--- NOTE | 2020-09-04 07:32 | Internal Med Progress Note ---
SUBJECTIVE Subjective Patient information: Note initiated : 09/04/20 at 7:29 am Service Date, if different from initiated Date: [] Patient: Gloria Rose 85 y/o F admitted on 08/26/20 for SOB . Chief Complaint: [] Interval history: Presents the ED from [facility]. Patient was sent in for shortness of breath hypoxia she said her saturations were 82% on room air. She also note increased swelling in her legs. She has some nausea. A little bit of cough that she says is clear phlegm. She sleeps and naps in recliner for several years. She complains of worsening orthopnea lately. In the ED she was found to have a A. fib with mildly elevated ventricular rate in the 110's. Respiratory showing pulmonary edema. Case was discussed with cardiology. No aggressive interventions needed, recommended rate control and diuresis. She required 2 L of oxygen which is new. No prior diagnosis of atrial fibrillation. 08/27 Patient on 3 L of oxygen. Occasional cough. Some shortness of breath. Gets anxious at times. Rate controlled. Electrolytes improved. Takes shallow breaths. 08/28 CT chest w/ contrast showed bilateral nonspecific ground glass opacities, more consistent with pneumonia and ARDS than CHF. COVID PCR ordered, started dexamethasone pending COVID PCR results. Ceftriaxone and doxycycline. Discontinued IV lasix and restarted home oral lasix. 08/29 COVID PCR positive, continue dexamethasone and started remdesivir. Continued abx for now. Overall clinical improvement. 08/30 Gradual improvement, per report the patient was diagnosed with COVID in June. Not clear why COVID PCR is positive now, some patient have persistent positive and now there are reports of new variants of COVID infections. Procalcitonin normal range, discontinued antibiotics. 08/31 About the same as yesterday, chest xray markedly improved, onging discharge planning. 09/01 Very drowsy this morning, received ativan prn, benadryl prn, and melatonin for sleep last night. VBG w/ CO retention, started BiPAP and transfer to PCU status. 09/02 Patient awake and doing well. She took off her BiPAP. EEG still shows CO2 retention with a low pH but her mentation is significantly improved. She does admit to feeling that sometimes food or liquid goes down the wrong pipe. Follow-up chest x-ray today did show a right-sided infiltrate. No leukoc ytosis afebrile. She does admit to some coughing and shortness of breath, But otherwise no complaints 09/03 Patient doing well off BiPAP. On 2 L nasal cannula. Feeling better. Not much of a cough. Mild shortness of breath. 09/04 Slept well. Doing well. Oxygen saturation will desatted a bit when she walks around but otherwise on minimal support. Minimal cough. Minimal shortness of breath. Review of Systems: denies headache/fever/chills/nausea/vomiting/chest or abdominal pain/diarrhea. Otherwise see above. Constitutional Vitals: Vital Signs Temp Pulse Resp BP Pulse Ox 97.3 F 78 20 143/72 96 09/04/20 06:36 09/04/20 06:36 09/04/20 06:36 09/04/20 06:36 09/04/20 06:36 Period Temp Pulse Resp BP Sys/Morejon Pulse Ox Last 24 Hr 96.4 F-97.3 F 73-78 12-22 118-143/53-72 93-100 Intake and Output 09/03/20 09/04/20 09/04/20 21:59 05:59 13:59 Intake Total 240 200 Output Total 551 1 Balance -311 199 Weight 97.613 kg Intake & Output: Intake & Output 09/03/20 09/04/20 09/04/20 21:59 05:59 13:59 Intake Total 240 200 Output Total 551 1 Balance -311 199 Weight 97.613 kg Intake: IV 50 Oral 240 150 Output: Void Amount 550 # of times incontinent of urine 1 1 Other: Meal Dinner Percent of Meal Consumed 75% Urine Appearance Clear Urine Color Dark Yellow Bright Yellow Urine Odor Normal # Voids 1 Exam: General: Alert, Awake, No acute Distress, obese Eyes/N/T: EOMI, Head/Neck: neck supple, CV: irreg irreg, No murmurs, Pulm: mild fine b/l rales, no wheezing Abd: soft, nontender, Ext: no clubbing/cyanosis, mild b/l LE edema Neuro: Alert, no focal deficits, moves all extremities, Skin: warm/dry OBJ DATA Labs CBC & Chem 7: 09/03/20 05:22 09/03/20 05:22 Labs: Abnormal Lab Results 09/03/20 09/03/20 09/02/20 05:22 05:22 12:27 Hgb 11.5 L MCHC 27.8 L RDW 15.6 H Lymph % (Auto) Lymph # (Auto) [place] # (Auto) 0.98 H ABG Methemoglobin 0.3 L VBG Base Excess 6 H Carboxyhemoglobin 7.5 H Total Hemoglobin 10.9 L Carbon Dioxide 33 H Anion Gap 6.0 L BUN 32 H Glucose Calcium 8.3 L AST 35 H Lactate Dehydrogenase 248 H C-Reactive Protein Albumin 2.9 L Albumin/Globulin Ratio 0.9 L 09/02/20 09/02/20 09/02/20 07:45 07:45 07:45 Hgb 11.3 L MCHC 27.9 L RDW 15.6 H Lymph % (Auto) 12.3 L Lymph # (Auto) 1.11 L [place] # (Auto) ABG Methemoglobin VBG Base Excess Carboxyhemoglobin Total Hemoglobin Carbon Dioxide 32 H Anion Gap BUN 30 H Glucose Calcium 7.9 L AST Lactate Dehydrogenase C-Reactive Protein 1.50 H Albumin Albumin/Globulin Ratio 09/01/20 09/01/20 09/01/20 11:02 07:15 07:15 Hgb MCHC 28.8 L RDW 15.9 H Lymph % (Auto) Lymph # (Auto) 1.41 L [place] # (Auto) ABG Methemoglobin 0.3 L VBG Base Excess Carboxyhemoglobin 11.7 H Total Hemoglobin 11.6 L Carbon Dioxide Anion Gap BUN 29 H Glucose 109 H Calcium AST Lactate Dehydrogenase C-Reactive Protein Albumin Albumin/Globulin Ratio Meds: Medications Acetaminophen (Tylenol) 650 mg PO Q6HP PRN PRN Reason: PAIN/FEVER > 101 Last Admin: 09/04/20 05:04 Dose: 650 mg Documented by: Albuterol Sulfate (Ventolin) 2 puff INH ACHS [facility] Last Admin: 09/03/20 21:55 Dose: 2 puff Documented by: Albuterol/Ipratropium (Duoneb) 3 ml NEB Q4HP PRN PRN Reason: Shortness Of Breath Apixaban (Eliquis) 5 mg PO BID [facility] Last Admin: 09/03/20 21:53 Dose: 5 mg Documented by: Artificial Tears (Refresh Celluvisc) 1 each OU PRN PRN PRN Reason: Dry Eyes Dexamethasone (Decadron) 6 mg PO DAILY [facility] Docusate Sodium (Colace) 100 mg PO BID [facility] Last Admin: 09/03/20 21:53 Dose: 100 mg Documented by: Enalaprilat (Vasotec) 0 mg IV Q2HP PRN PRN Reason: Hypertension Fluticasone Propionate (Flovent Hfa 110mcg) 1 puff INH BID [facility] Last Admin: 09/03/20 21:56 Dose: Not Given Documented by: Furosemide (Lasix) 20 mg PO QAM [facility] Hydroxyzine HCl (Atarax) 50 mg PO TIDP PRN PRN Reason: anxiety Magnesium Sulfate (Magnesium Sulfate) 2 gm in 50 mls @ 50 mls/hr IV UD PRN PRN Reason: Magnesium </= 1.6 Last Infusion: 09/03/20 23:00 Dose: Infused Documented by: Potassium Chloride 40 meq/ (Dextrose) 520 mls @ 130 mls/hr IV UD PRN PRN Reason: Potassium < 3 Lactobacillus Rhamnosus (Culturelle) 1 cap PO BID [facility] Last Admin: 09/03/20 21:53 Dose: 1 cap Documented by: Levetiracetam (Keppra) 750 mg PO BID [facility] Last Admin: 09/03/20 21:53 Dose: 750 mg Documented by: Levothyroxine Sodium (Synthroid) 100 mcg PO QAMAC [facility] Lisinopril (Zestril) 10 mg PO DAILY [facility] Melatonin (Melatonin 3mg Tablet) 3 mg PO HS [facility] Last Admin: 09/03/20 21:53 Dose: 3 mg Documented by: Metoprolol Succinate (Toprol Xl) 25 mg PO DAILY [facility] Metoprolol Tartrate (Lopressor) 5 mg IV Q2HP PRN PRN Reason: Tachyarrhythmias HR>110 Ondansetron HCl (Zofran) 4 mg IV Q4HP PRN PRN Reason: Nausea And Vomiting Pantoprazole Sodium (Protonix) 40 mg PO QAMAC [facility] Potassium Chloride (Kdur) 40 meq PO UD PRN PRN Reason: Potssium is 3-3.5 Potassium Chloride (Kdur) 40 meq PO UD PRN PRN Reason: Potassium < 3 Senna (Senokot) 2 tab PO DAILYP PRN PRN Reason: Constipation Sodium Chloride (Saline Flush) 10 ml IV Q8 [facility] Last Admin: 09/04/20 04:06 Dose: 10 ml Documented by: Venlafaxine HCl (Effexor Xr) 150 mg PO DAILY [facility] ABG Interpretation ABG results: 09/01/20 09/02/20 11:02 12:27 ABG Methemoglobin 0.3 L 0.3 L VBG pH 7.27 7.34 VBG pCO2 67.8 62.6 VBG pO2 69.5 149.4 VBG HCO3 30.4 32.9 VBG Total CO2 32.5 34.8 VBG O2 Saturation 83.3 91.6 VBG Base Excess 2 6 H A/P Narrative A/P Narrative: A: #AMS(drowsy) w/CO2 retention: possible medication etiology vs ?seizure with post-ictal phase. -CT brain no acute, old infarcts -REsolved #Acute hypoxic/hypercapnic respiratory failure: IMproved -was on Bipap at one point, now 1-2L NC -CXR with right side infiltrates(?aspiration, no fever/leukocytosis/pct low), edema improved #Positive COVID PCR: persistent positive (from June COVID illness) vs reinfection (rare) #Paroxysmal afib: resolved now in sinus rhythm #Acute on chronic diastolic(I) CHF: resolved #Severe Pulm HTN: #Hypomagnesemia: resolved #HTN: #Depression/anxiety: #Seizure disorder: on keppra #GERD: #Chronic pain: #Obesity: #COPD: on fluticasone bid P: -IS, wean O2 -Dexamethasone finishes, remdesivir finished -home keppra -home lasix 20 mg daily -BB/ACEI (decreased to 10mg for low-norm bp, may need to be increased) -PT/OT, passed ST eval -f/u with Cardiology -CM for placement -ppx: eliquis/home PPI DNR Time Spent With Patient Time: Total time spent is greater than 50% in coordination of care (as documented) at patient's floor/unit and/or counseling patient: QUALITY VTE Deep Vein Thrombosis/Pulmonary Embolism Present on Admission: No
[2020-09-04] MEDS: DEXAMETHASONE 4 MG TABLET PO SCH (08:16)
[2020-09-04] MEDS: LACTOBACILLUS 1 CAPSULE PO SCH ×2 (08:17→21:19)
[2020-09-04] MEDS: VENLAFAXINE 150 MG CAP.XL.24H PO SCH (08:17)
[2020-09-04] MEDS: levETIRAcetam 500 MG TABLET PO SCH ×2 (08:17→21:18)
[2020-09-04] MEDS: LEVOTHYROXINE 100 MCG TABLET PO SCH (08:17)
[2020-09-04] MEDS: METOPROLOL SUCCINATE 25 MG TAB.XL.24H PO SCH (08:17)
[2020-09-04] MEDS: APIXABAN 5 MG TABLET PO SCH ×2 (08:18→21:19)
[2020-09-04] MEDS: PANTOPRAZOLE 40 MG TABLET PO SCH (08:18)
[2020-09-04] MEDS: DOCUSATE SODIUM 100 MG CAPSULE PO SCH ×2 (08:18→21:19)
[2020-09-04] MEDS: LISINOPRIL 10 MG TABLET PO SCH (08:18)
[2020-09-04] MEDS: FUROSEMIDE 20 MG TABLET PO SCH (08:18)
[2020-09-04] MEDS: FLUTICASONE HFA 110MCG INHALER INH SCH ×2 (08:19→21:21)
[2020-09-04] MEDS: ALBUTEROL SULFATE 200 PUFF INHALER INH SCH ×4 (08:29→21:22)
[2020-09-04] MEDS ORDERED: FUROSEMIDE 40 MG/4 ML VIAL IV ONE (08:41)
[2020-09-04] MEDS ORDERED: ALBUMIN HUMAN 12.5 GM/50 ML BAG IV ONE (08:41)
--- NOTE | 2020-09-04 10:07 | Discharge Summary ---
Discharge Provider Provider Patient information: Note initiated : 09/04/20 at 10:05 am Service Date, if different from initiated Date: [] Patient: Gloria Rose 85 y/o F admitted on 08/26/20 for SOB . Chief Complaint: [] Date of admission: 08/26/20 13:13 Discharge date: 09/05/20 Primary care physician: Wesley Melo Consults: 08/26/20 Consult to Physician [CONS] Stat Comment: Consulting Provider: Félix Puente Reason For Exam: Physician to Consult Discharge Meds Discharge Medications Home Medications omeprazole 40 mg PO DAILY 10/20/16 [History Confirmed 08/26/20 Last Taken 08/25/20] venlafaxine [Effexor XR] 150 mg PO DAILY 10/20/16 [History Confirmed 08/26/20 Last Taken 08/25/20] Flovent HFA 1 puff INHALATION BID 08/26/20 [History Confirmed 08/26/20 Last Taken 08/25/20] acetaminophen [Tylenol] 650 mg PO Q4H PRN 08/26/20 [History Confirmed 08/26/20 Last Taken 08/26/20 08:00] albuterol sulfate [Ventolin HFA] 2 puff INHALATION ACHS 08/26/20 [History Confirmed 08/26/20 Last Taken 08/26/20 07:30] aripiprazole 10 mg PO HS 08/26/20 [History Confirmed 08/30/20 Last Taken 08/26/20 20:00] carboxymethylcellulose sodium [Refresh Tears] 1 drp OPHTHALMIC (EYE) PRN PRN 08/26/20 [History Confirmed 08/30/20 Last Taken 08/24/20 10:00] docusate sodium 100 mg PO QDAY PRN 08/26/20 [History Confirmed 08/30/20 Last Taken Unknown] furosemide [Lasix] 20 mg PO QAM 08/26/20 [History Confirmed 08/26/20 Last Taken 08/25/20] levetiracetam [Keppra] 750 mg PO BID 08/26/20 [History Confirmed 08/26/20 Last Taken 08/25/20] levothyroxine 100 mcg PO QDAY 08/26/20 [History Confirmed 08/26/20 Last Taken 08/26/20] lorazepam 1 mg PO HS 08/26/20 [History Confirmed 08/26/20 Last Taken 08/25/20] melatonin 10 mg PO HS 08/26/20 [History Confirmed 08/26/20 Last Taken 08/25/20] polyethylene glycol 3350 [Miralax] 17 g PO DAILY PRN 08/26/20 [History Confirmed 08/30/20 Last Taken Unknown] potassium chloride [Klor-Con 10] 10 meq PO DAILY 08/26/20 [History Confirmed 08/30/20 Last Taken 08/25/20 08:00] venlafaxine 75 mg PO QDAY 08/30/20 [History Confirmed 08/30/20 Last Taken 08/25/20 08:00] apixaban [Eliquis] 5 mg PO BID #60 tab 09/04/20 [Rx Last Taken Unknown] lisinopril 10 mg PO DAILY #30 tab 09/04/20 [Rx Last Taken Unknown] metoprolol succinate 25 mg PO DAILY #30 tab 09/04/20 [Rx Last Taken Unknown] COURSE Hospital Course Hospital course: Interval history: Presents the ED from [facility]. Patient was sent in for shortness of breath hypoxia she said her saturations were 82% on room air. She also note increased swelling in her legs. She has some nausea. A little bit of cough that she says is clear phlegm. She sleeps and naps in recliner for several years. She complains of worsening orthopnea lately. In the ED she was found to have a A. fib with mildly elevated ventricular rate in the 110's. Respiratory showing pulmonary edema. Case was discussed with cardiology. No aggressive interventions needed, recommended rate control and diuresis. She required 2 L of oxygen which is new. No prior diagnosis of atrial fibrillation. 08/27 Patient on 3 L of oxygen. Occasional cough. Some shortness of breath. Gets anxious at times. Rate controlled. Electrolytes improved. Takes shallow breaths. 08/28 CT chest w/ contrast showed bilateral nonspecific ground glass opacities, more consistent with pneumonia and ARDS than CHF. COVID PCR ordered, started dexamethasone pending COVID PCR results. Ceftriaxone and doxycycline. Discontinued IV lasix and restarted home oral lasix. 08/29 COVID PCR positive, continue dexamethasone and started remdesivir. Continued abx for now. Overall clinical improvement. 08/30 Gradual improvement, per report the patient was diagnosed with COVID in June. Not clear why COVID PCR is positive now, some patient have persistent positive and now there are reports of new variants of COVID infections. Procalcitonin normal range, discontinued antibiotics. 08/31 About the same as yesterday, chest xray markedly improved, onging discharge planning. 09/01 Very drowsy this morning, received ativan prn, benadryl prn, and melatonin for sleep last night. VBG w/ CO retention, started BiPAP and transfer to PCU status. 09/02 Patient awake and doing well. She took off her BiPAP. EEG still shows CO2 retention with a low pH but her mentation is significantly improved. She does admit to feeling that sometimes food or liquid goes down the wrong pipe. Follow-up chest x-ray today did show a right-sided infiltrate. No leukocytosis afebrile. She does admit to some coughing and shortness of breath, But otherwise no complaints 09/03 Patient doing well off BiPAP. On 2 L nasal cannula. Feeling better. Not much of a cough. Mild shortness of breath. 09/04 Slept well. Doing well. Oxygen saturation will desatted a bit when she walks around but otherwise on minimal support. Minimal cough. Minimal shortness of breath. 09/05 No overnight event or new complaints. Patient on half a liter of oxygen. Stable for discharge. A: #AMS(drowsy) w/CO2 retention: possible medication etiology vs ?seizure with post-ictal phase. -CT brain no acute, old infarcts #Acute hypoxic/hypercapnic respiratory failure: IMproved #Positive COVID PCR: persistent positive (from June COVID illness) vs reinfection (rare) #Paroxysmal afib: resolved now in sinus rhythm #Acute on chronic diastolic(I) CHF: resolved #Severe Pulm HTN: #Hypomagnesemia: resolved #HTN: #Depression/anxiety: #Seizure disorder: on keppra #GERD: #Chronic pain: #Obesity: #COPD: on fluticasone bid #Generalized weakness/deconditioning Discharge diagnosis: Encephalopathy acute hypercapnic hypoxic resp failure heart failure Secondary discharge diagnosis: A. fib pulmonary pretension electrolyte abnormalities hypertension depression anxiety seizure disorder chronic pain obesity COPD Time Spent with Patient Time attestation: Total time spent providing and/or coordinating discharge services: Time spent: Greater than 30 minutes EXAM Constitutional Vitals: Temp Pulse Resp BP Pulse Ox 97.3 F 78 20 143/72 96 09/04/20 06:36 09/04/20 06:36 09/04/20 06:36 09/04/20 06:36 09/04/20 06:36 Discharge Plan Patient/Caregiver Discharge Instructions Activity: increase activity as tolerated Diet: Regular Diet Activity Restrictions/Additional Instructions: Referral to see cardiology in 1 to 2 weeks. Monitor blood pressure twice daily and bring log to PCP and agency cashier Prescriptions: New lisinopril 10 mg Tablet 10 mg PO DAILY Qty: 30 RF: 0 metoprolol succinate 25 mg Tablet Extended Release 24 Hr 25 mg PO DAILY Qty: 30 RF: 0 Eliquis 5 mg Tablet 5 mg PO BID Qty: 60 RF: 0 Continued venlafaxine [Effexor XR] 150 MG capsule,extended release 24hr 150 mg PO DAILY RF: 0 omeprazole 20 MG tablet,delayed release (DR/EC) 40 mg PO DAILY RF: 0 lorazepam 1 mg tablet 1 mg PO HS RF: 0 aripiprazole 10 mg tablet 10 mg PO HS RF: 0 potassium chloride [Klor-Con 10] 10 mEq Tablet Extended Release 10 meq PO DAILY RF: 0 levothyroxine 100 mcg Tablet 100 mcg PO QDAY RF: 0 furosemide [Lasix] 20 mg Tablet 20 mg PO QAM RF: 0 Flovent HFA 110 mcg/actuation Hfa Aerosol Inhaler 1 puff INHALATION BID RF: 0 melatonin 10 mg Tablet 10 mg PO HS RF: 0 levetiracetam [Keppra] 750 mg Tablet 750 mg PO BID RF: 0 acetaminophen [Tylenol] 325 mg Tablet 650 mg PO Q4H PRN (Reason: Pain) RF: 0 carboxymethylcellulose sodium [Refresh Tears] 0.5 % Drops 1 drp OPHTHALMIC (EYE) PRN PRN (Reason: Dry Eyes) RF: 0 docusate sodium 100 mg Capsule 100 mg PO QDAY PRN (Reason: Constipation) RF: 0 polyethylene glycol 3350 [Miralax] 17 gram/dose Powder 17 g PO DAILY PRN (Reason: Constipation) RF: 0 albuterol sulfate [Ventolin HFA] 90 mcg/actuation Hfa Aerosol Inhaler 2 puff INHALATION ACHS RF: 0 venlafaxine 75 mg Tablet 75 mg PO QDAY RF: 0 Discontinued amlodipine 10 mg Tablet 10 mg PO QDAY RF: 0 oxymetazoline [Nasal [place] (oxymetazoline)] 0.05 % [place],Non-Aerosol 1 spray INTRANASAL BID RF: 0 Follow Up Plan Follow up with: Wesley Melo ARNP [Primary Care Provider] - Patient Disposition: Xfer SNF Prognosis: Undetermined Rehab Potential: Fair I certify that the patient requires SNF services: Yes Overall status at discharge: patient is progressing back to baseline Discharge Orders: Discharge Order (Routine); Ordered 09/05/20 Ordered By: Félix Puente [facility] Deep Vein Thrombosis/Pulmonary Embolism Present on Admission: No
[2020-09-04] MEDS: ARIPIPRAZOLE 5 MG TABLET PO SCH (21:18)
[2020-09-04] MEDS: MELATONIN 3 MG TABLET PO SCH (21:19)
[2020-09-05] MEDS: ACETAMINOPHEN 325 MG TABLET PO PRN (02:16)
[2020-09-05] MEDS: 0.9 % SODIUM CHLORIDE 10 ML SYRINGE IV SCH (06:17)
--- NOTE | 2020-09-05 07:36 | XRay Report ---
INDICATION: f/u abnormal chest xray. History of pulmonary edema and possible pneumonia TECHNIQUE: AP portable upright chest x-ray COMPARISON: Previous chest x-rays dated 09/02/2020, 08/31/2020, 08/28/2020. Previous CT scan dated 08/28/2020 FINDINGS: Lungs:Mild bilateral infiltrates are improved since 09/02/2020 and markedly improved since 08/28/2020. No new pulmonary parenchymal infiltrate or mass. Heart, vascular:No significant cardiomegaly. Pulmonary vascularity is normal. No pulmonary edema or pulmonary congestion Mediastinum, kenny:No mediastinal widening. No hilar mass Pleura:No pleural fluid. No pleural-based mass or calcification Skeletal:Negative. IMPRESSION: 1. Improved chest x-ray 2. No new abnormality Interpreted and Authenticated by: Raffy Montoya 09/05/20
[2020-09-05] MEDS: LACTOBACILLUS 1 CAPSULE PO SCH (08:17)
[2020-09-05] MEDS: levETIRAcetam 500 MG TABLET PO SCH (08:17)
[2020-09-05] MEDS: DOCUSATE SODIUM 100 MG CAPSULE PO SCH (08:17)
[2020-09-05] MEDS: LISINOPRIL 10 MG TABLET PO SCH (08:17)
[2020-09-05] MEDS: VENLAFAXINE 150 MG CAP.XL.24H PO SCH (08:17)
[2020-09-05] MEDS: FUROSEMIDE 20 MG TABLET PO SCH (08:17)
[2020-09-05] MEDS: PANTOPRAZOLE 40 MG TABLET PO SCH (08:18)
[2020-09-05] MEDS: ALBUTEROL SULFATE 200 PUFF INHALER INH SCH ×2 (08:18→11:49)
[2020-09-05] MEDS: LEVOTHYROXINE 100 MCG TABLET PO SCH (08:18)
[2020-09-05] MEDS: APIXABAN 5 MG TABLET PO SCH (08:18)
[2020-09-05] MEDS: DEXAMETHASONE 4 MG TABLET PO SCH (08:18)
[2020-09-05] MEDS: FLUTICASONE HFA 110MCG INHALER INH SCH (08:18)
[2020-09-05] MEDS: METOPROLOL SUCCINATE 25 MG TAB.XL.24H PO SCH (08:18)
== END 2020-09-05 13:40 | DRG 177 ==
LOC: ED 06:54 → ICU 13:13 → MEDSUR 08-30 13:04 → ICU 09-01 12:30 → MEDSUR 09-03 14:29
PROVIDERS: ADMIT Internal Medicine; ATTEND Internal Medicine

== ENCOUNTER 2020-11-11 14:33 | Inpatient (IN) ==
--- NOTE | 2020-11-11 15:01 | Emergency Department Note ---
Anxiety HPI General Chief Complaint: Anxiety Stated Complaint: Anxiety Time Seen by Provider: 11/11/20 14:44 Source: EMS Mode of arrival: EMS History of Present Illness HPI Narrative: Narrative: Presents to room E2 for evaluation anxiety and shortness of breath. The patient does have a past medical history of CHF. The patient also has a history of anxiety. She states that she frequently becomes very anxious when she feels like she cannot breathe. She reports increased shortness of breath and a feeling of anxiety over the last week. The symptoms were worse today and EMS was called to transport to the emergency department. She denies any fevers or chills. No cough or sputum production. No chest pain. Related Data Home Medications Medication Instructions Recorded Confirmed omeprazole 40 mg PO DAILY 10/20/16 11/11/20 Flovent HFA 1 puff INHALATION BID 08/26/20 11/11/20 acetaminophen [Tylenol] 650 mg PO Q4H PRN 08/26/20 11/12/20 albuterol sulfate [Ventolin HFA] 2 puff INHALATION ACHS 08/26/20 11/11/20 aripiprazole 10 mg PO HS 08/26/20 11/11/20 carboxymethylcellulose sodium 1 drp OPHTHALMIC (EYE) PRN PRN 08/26/20 11/11/20 [Refresh Tears] docusate sodium 100 mg PO QDAY PRN 08/26/20 11/11/20 furosemide [Lasix] 40 mg PO QAM 08/26/20 11/12/20 levetiracetam [Keppra] 750 mg PO BID 08/26/20 11/11/20 levothyroxine 100 mcg PO QDAY 08/26/20 11/12/20 melatonin 10 mg PO HS 08/26/20 11/11/20 polyethylene glycol 3350 [Miralax] 17 g PO DAILY PRN 08/26/20 11/11/20 potassium chloride [Klor-Con 10] 10 meq PO DAILY 08/26/20 11/12/20 venlafaxine 225 mg PO QDAY 08/30/20 11/11/20 Breo Ellipta 1 puff INHALATION DAILY 11/11/20 11/11/20 lorazepam 1 mg PO QHS 11/11/20 11/11/20 metoprolol succinate 50 mg PO DAILY 11/11/20 11/11/20 nystatin 1 dose TOPICAL BID 11/11/20 11/11/20 tiotropium bromide 1 cap INHALATION QDAY 11/11/20 11/11/20 Previous Rx's Medication Instructions Recorded apixaban [Eliquis] 5 mg PO BID #60 tab 09/04/20 lisinopril 10 mg PO DAILY #30 tab 09/04/20 Allergies Allergy/AdvReac Type Severity Reaction Status Date / Time No Known Drug Allergies Allergy Verified 11/11/20 14:34 Review of Systems ROS ROS Narrative: Narrative: All systems ED: reviewed and negative except as stated. [facility] Narrative Patient History Narrative: Narrative: Medical/Surgical/Family History All Active Problems (Updated 11/11/20 @ 17:14 by Antonio Randhawa MD) Acute on chronic congestive heart failure (Acute) Hypoxia (Acute) Hypomagnesemia (Acute) Hypocalcemia (Acute) Dyspnea (Acute) Acute kidney injury (Acute) Severe sepsis (Acute) Hypothyroidism, acquired (Acute) Congestive heart failure (Acute) Hypertension (Acute) Seizure disorder (Acute) Medical History Acute kidney injury Acute respiratory failure with hypoxia Community acquired pneumonia Congestive heart failure Fall Hypertension Hypothyroidism, acquired Seizure disorder Septic encephalopathy Severe sepsis Urinary tract infection Surgical History History of cataract surgery History of hysterectomy Social History Smoking Status: Never smoker Exam Narrative Narrative: Narrative: General General appearance: Present alert and in no apparent distress Head Head: Present atraumatic, normocephalic and normal inspection Eye Eye: Present normal appearance and EOMI; Absent conjunctival injection ENT ENT: Present normal exam and mucous membranes moist Neck Neck: Present normal inspection and trachea midline Respiratory Respiratory: Present normal lung sounds bilaterally and rales/crackles (Left greater than right lung field); Absent respiratory distress Cardiovascular Cardiovascular: Present regular rate, normal rhythm and normal heart sounds Adbominal Abdominal: Present soft; Absent distention, tenderness, guarding and rebound Extremities Extremities: Present normal inspection; Absent tenderness Back Back: Present normal inspection; Absent tenderness Neurological Neurological: Present alert, oriented X3 and CN II-XII intact; Absent motor sensory deficit Psychiatric Psychiatric: Present normal affect and normal mood Skin Skin: Present warm (WNL) and dry; Absent rash Course Vital Signs Vital signs: Vital Signs Temperature 96.3 F L 04/09/21 14:35 Pulse Rate 60 11/11/20 14:35 Respiratory Rate 22 11/11/20 14:35 Blood Pressure 160/144 11/11/20 14:35 Pulse Oximetry (%) 96 11/11/20 14:35 Temperature 97.8 F 11/12/20 13:00 Pulse Rate 105 H 11/12/20 14:01 Respiratory Rate 31 H 11/12/20 14:01 Blood Pressure 95/72 11/12/20 14:01 Pulse Oximetry (%) 94 11/12/20 14:01 [facility] Narrative Medical decision making narrative: Narrative: Patient presents for evaluation of shortness of breath and a sense of anxiety. The patient does have a history of CHF. Chest x-ray shows interstitial infiltrates and interstitial pulmonary edema is favored versus bilateral pneumonia. The patient's WBCs were elevated at 19.9 and the lactic acid was elevated at 3.2 the patient did receive a dose of IV Rocephin after blood cultures. The patient's BUN is elevated at 39 and creatinine is 2.0. Most recent values in August were normal. I believe the patient is most likely retaining and is somewhat volume overloaded. Patient's EKG shows no evidence of acute injury or ischemia. The patient's BNP is markedly elevated. The patient was given a single dose of Lasix. The patient still appears to be dyspneic but is not hypoxic. In the context of her underlying anxiety the patient was given a dose of Ativan. I discussed the case with the hospitalist for admission. Lab Data Lab results reviewed: Yes I reviewed the patient's lab results. Result diagrams: 11/12/20 04:50 11/12/20 04:50 Labs: Lab Results 11/11/20 11/11/20 11/11/20 Range/Units 00:07 00:07 15:17 WBC (4.5-11.0) K/mcL RBC (4.00-5.20) M/mcL Hgb (12.0-15.0) g/dL Hct (36.0-48.0) % MCV (80.0-100.0) fL MCH (26.0-34.0) pg MCHC (31.0-36.0) g/dL RDW (11.5-14.5) % Plt Count (140-440) K/mcL MPV (7.4-10.4) fL Neut % (Auto) (38.0-78.0) % Lymph % (Auto) (15.0-49.0) % [place] % (Auto) (1.0-12.0) % Eos % (Auto) (0.0-7.0) % Baso % (Auto) (0.0-2.0) % Lymph # (Auto) (1.50-4.80) K/mcL [place] # (Auto) (0.10-0.90) K/mcL Eos # (Auto) (0.00-0.70) K/mcL Baso # (Auto) (0.00-0.20) K/mcL Absolute Neutrophils (1.80-8.00) K/mcL VBG Lactic Acid 3.5 H (0.5-2.0) mmol/L Sodium 133 (133-145) mmol/L Potassium 5.1 (3.3-5.1) mmol/L Chloride 96 (96-108) mmol/L Carbon Dioxide 18 L (22-30) mmol/L Anion Gap 19.0 H (8.0-16.0) BUN 42 H (8-23) mg/dL Creatinine 2.1 H (0.6-1.1) mg/dL GFR Calculation 21 Glucose 50 L (70-105) mg/dL Uric Acid 10.5 H (2.5-8.0) mg/dL Calcium 5.7 L* (8.6-10.4) mg/dL Phosphorus 6.3 H* (2.5-4.5) mg/dL Magnesium 0.5 L* (1.6-2.5) mg/dL Total Bilirubin 0.6 (0.1-1.0) mg/dL Direct Bilirubin 0.3 H (<0.3) mg/dL GGT 27 (5-36) U/L AST 174 H (<32) U/L ALT 80 H (<40) U/L Alkaline Phosphatase 69 (39-117) U/L Lactate Dehydrogenase 730 H (135-225) U/L Troponin T 0.04 H* (<0.03) ng/mL C-Reactive Protein (0.03-0.80) mg/dL NT-Pro-B Natriuret Pep (<450.0) pg/mL Total Protein 6.9 (5.9-8.4) gm/dL Albumin 3.3 (3.2-5.2) gm/dL Globulin 3.6 (2.2-3.7) gm/dL Albumin/Globulin Ratio 0.9 L (1.0-2.3) Triglycerides 80 (<150) mg/dL Procalcitonin (<0.10) ng/mL Urine Color Urine Appearance (Clear) Urine pH (5.0-9.0) Ur Specific [place] (1.000-1.035) Urine Protein (Negative) mg/dL Urine Glucose (UA) (Negative) mg/dL Urine Ketones (Negative) mg/dL Urine Occult Blood (Negative) pk/mcL Urine Nitrate (Negative) Urine Bilirubin (Negative) mg/dL Urine Urobilinogen mg/dL Ur Leukocyte Esterase (Negative) /ug Urine RBC (0-3) /hpf Urine WBC (0-4) /hpf Ur Squamous Epith Cells (0-4) /hpf Urine Bacteria (0) /hpf Hyaline Casts (0-2) /lph Ur Culture Indicated? 11/11/20 11/11/20 11/11/20 Range/Units 15:35 15:35 15:35 WBC 19.9 H (4.5-11.0) K/mcL RBC 5.02 (4.00-5.20) M/mcL Hgb 13.6 (12.0-15.0) g/dL Hct 45.3 (36.0-48.0) % MCV 90.2 (80.0-100.0) fL MCH 27.1 (26.0-34.0) pg MCHC 30.0 L (31.0-36.0) g/dL RDW 15.9 H (11.5-14.5) % Plt Count 327 (140-440) K/mcL MPV 10.1 (7.4-10.4) fL Neut % (Auto) 90.6 H (38.0-78.0) % Lymph % (Auto) 4.4 L (15.0-49.0) % [place] % (Auto) 4.3 (1.0-12.0) % Eos % (Auto) 0.5 (0.0-7.0) % Baso % (Auto) 0.2 (0.0-2.0) % Lymph # (Auto) 0.88 L (1.50-4.80) K/mcL [place] # (Auto) 0.86 (0.10-0.90) K/mcL Eos # (Auto) 0.10 (0.00-0.70) K/mcL Baso # (Auto) 0.03 (0.00-0.20) K/mcL Absolute Neutrophils 18.05 H (1.80-8.00) K/mcL VBG Lactic Acid (0.5-2.0) mmol/L Sodium 137 (133-145) mmol/L Potassium 4.4 (3.3-5.1) mmol/L Chloride 96 (96-108) mmol/L Carbon Dioxide 20 L (22-30) mmol/L Anion Gap 21.0 H (8.0-16.0) BUN 39 H (8-23) mg/dL Creatinine 2.0 H (0.6-1.1) mg/dL GFR Calculation 22 Glucose 97 (70-105) mg/dL Uric Acid (2.5-8.0) mg/dL Calcium 6.4 L (8.6-10.4) mg/dL Phosphorus (2.5-4.5) mg/dL Magnesium (1.6-2.5) mg/dL Total Bilirubin 0.5 (0.1-1.0) mg/dL Direct Bilirubin (<0.3) mg/dL GGT (5-36) U/L AST 34 H (<32) U/L ALT 17 (<40) U/L Alkaline Phosphatase 79 (39-117) U/L Lactate Dehydrogenase (135-225) U/L Troponin T 0.03 H (<0.03) ng/mL C-Reactive Protein (0.03-0.80) mg/dL NT-Pro-B Natriuret Pep 28367.0 H (<450.0) pg/mL Total Protein 8.0 (5.9-8.4) gm/dL Albumin 3.7 (3.2-5.2) gm/dL Globulin 4.3 H (2.2-3.7) gm/dL Albumin/Globulin Ratio 0.9 L (1.0-2.3) Triglycerides (<150) mg/dL Procalcitonin (<0.10) ng/mL Urine Color Urine Appearance (Clear) Urine pH (5.0-9.0) Ur Specific [place] (1.000-1.035) Urine Protein (Negative) mg/dL Urine Glucose (UA) (Negative) mg/dL Urine Ketones (Negative) mg/dL Urine Occult Blood (Negative) pk/mcL Urine Nitrate (Negative) Urine Bilirubin (Negative) mg/dL Urine Urobilinogen mg/dL Ur Leukocyte Esterase (Negative) /ug Urine RBC (0-3) /hpf Urine WBC (0-4) /hpf Ur Squamous Epith Cells (0-4) /hpf Urine Bacteria (0) /hpf Hyaline Casts (0-2) /lph Ur Culture Indicated? 11/11/20 11/11/20 11/11/20 Range/Units 15:35 15:35 18:30 WBC (4.5-11.0) K/mcL RBC (4.00-5.20) M/mcL Hgb (12.0-15.0) g/dL Hct (36.0-48.0) % MCV (80.0-100.0) fL MCH (26.0-34.0) pg MCHC (31.0-36.0) g/dL RDW (11.5-14.5) % Plt Count (140-440) K/mcL MPV (7.4-10.4) fL Neut % (Auto) (38.0-78.0) % Lymph % (Auto) (15.0-49.0) % [place] % (Auto) (1.0-12.0) % Eos % (Auto) (0.0-7.0) % Baso % (Auto) (0.0-2.0) % Lymph # (Auto) (1.50-4.80) K/mcL [place] # (Auto) (0.10-0.90) K/mcL Eos # (Auto) (0.00-0.70) K/mcL Baso # (Auto) (0.00-0.20) K/mcL Absolute Neutrophils (1.80-8.00) K/mcL VBG Lactic Acid (0.5-2.0) mmol/L Sodium (133-145) mmol/L Potassium (3.3-5.1) mmol/L Chloride (96-108) mmol/L Carbon Dioxide (22-30) mmol/L Anion Gap (8.0-16.0) BUN (8-23) mg/dL Creatinine (0.6-1.1) mg/dL GFR Calculation Glucose (70-105) mg/dL Uric Acid (2.5-8.0) mg/dL Calcium (8.6-10.4) mg/dL Phosphorus (2.5-4.5) mg/dL Magnesium (1.6-2.5) mg/dL Total Bilirubin (0.1-1.0) mg/dL Direct Bilirubin (<0.3) mg/dL GGT (5-36) U/L AST (<32) U/L ALT (<40) U/L Alkaline Phosphatase (39-117) U/L Lactate Dehydrogenase (135-225) U/L Troponin T (<0.03) ng/mL C-Reactive Protein 18.50 H (0.03-0.80) mg/dL NT-Pro-B Natriuret Pep (<450.0) pg/mL Total Protein (5.9-8.4) gm/dL Albumin (3.2-5.2) gm/dL Globulin (2.2-3.7) gm/dL Albumin/Globulin Ratio (1.0-2.3) Triglycerides (<150) mg/dL Procalcitonin 0.63 H (<0.10) ng/mL Urine Color Yellow Urine Appearance Cloudy A (Clear) Urine pH 5.0 (5.0-9.0) Ur Specific [place] >= 1.030 (1.000-1.035) Urine Protein >=300 mg/dl A (Negative) mg/dL Urine Glucose (UA) Negative (Negative) mg/dL Urine Ketones Trace A (Negative) mg/dL Urine Occult Blood Moderate A (Negative) pk/mcL Urine Nitrate Negative (Negative) Urine Bilirubin Negative (Negative) mg/dL Urine Urobilinogen Normal mg/dL Ur Leukocyte Esterase Large A (Negative) /ug Urine RBC 78 H (0-3) /hpf Urine WBC > 182 H (0-4) /hpf Ur Squamous Epith Cells 1 (0-4) /hpf Urine Bacteria None (0) /hpf Hyaline Casts 6 H (0-2) /lph Ur Culture Indicated? yes ED POC Tests ED POC Tests: FEDE - SARS Antigen Negative Radiology Data Radiology results reviewed: Yes I reviewed the patient's radiology results. EKG Data EKG #1: EKG attestation: Yes I reviewed and interpreted this EKG., Yes There are no EKG findings of acute coronary syndrome and Yes This EKG will be read by career services representative Rhythm Strip Data Rhythm Strip Rate: 70 Interpretation: Normal sinus rhythm, Pulse Oximetry Data Pulse Ox %: 98 Interpretation: room air, normal Discharge Plan Patient/Caregiver Discharge Instructions Pt seen by FIELD SALES EXECUTIVE/PA only: No Clinical Impression: Dyspnea, Congestive heart failure, Acute kidney injury, Severe sepsis Patient Disposition: Xfer As Inpt ([facility]) Discharge Date/Time: 11/11/20 19:35 Discharge Location: [facility]
[2020-11-11 16:10] LABS: Basophils # (Auto) 0.03 K/mcL (0.00-0.20); Basophils % (Auto) 0.2 % (0.0-2.0); Eosinophils % (Auto) 0.5 % (0.0-7.0); Hematocrit 45.3 % (36.0-48.0); Hemoglobin 13.6 g/dL (12.0-15.0); Lymphocytes # (Auto) 0.88 K/mcL (1.50-4.80); Lymphocytes % (Auto) 4.4 % (15.0-49.0); Mean Cell Volume 90.2 fL (80.0-100.0); Mean Platelet Volume 10.1 fL (7.4-10.4); Monocytes # (Auto) 0.86 K/mcL (0.10-0.90); Monocytes % (Auto) 4.3 % (1.0-12.0); Neutrophils % (Auto) 90.6 % (38.0-78.0); Platelet Count 327 K/mcL (140-440); RBC 5.02 M/mcL (4.00-5.20); Red Cell Distribution Width 15.9 % (11.5-14.5); WBC 19.9 K/mcL (4.5-11.0)
[2020-11-11] MEDS ORDERED: cefTRIAXone 1 GM VIAL IV ONE (16:29)
--- NOTE | 2020-11-11 16:31 | XRay Report ---
INDICATION: Dyspnea TECHNIQUE: AP portable upright chest x-ray COMPARISON: Previous chest x-rays dated 09/05/2020, 09/02/2020, 08/31/2020 FINDINGS:Low volume lungs bilaterally with shallow inspiration. Lungs:There are interstitial infiltrates. Findings are slightly worse than on 09/05/2020 but similar to 08/31/2020. Interstitial pneumonia is possible but with this prolonged course interstitial edema is favored. Clinical correlation and continued radiographic follow-up recommended. No parenchymal consolidation. No parenchymal mass Heart, vascular:Heart size is within normal limits. Vascularity is prominent Mediastinum, kenny:No mediastinal widening. No hilar mass Pleura:No detectable pleural effusion Skeletal:Negative. IMPRESSION: 1. Bilateral interstitial infiltrates are worse than on 09/05/2020 but similar to 08/31/2020 2. Interstitial edema is favored 3. Low volume lungs and shallow inspiration Interpreted and Authenticated by: Raffy Montoya 11/11/20
[2020-11-11 16:36] LABS: ALT/SGPT 17 U/L (<40); AST/SGOT 34 U/L (<32); Albumin 3.7 gm/dL (3.2-5.2); Albumin/Globulin Ratio 0.9 (1.0-2.3); Alkaline Phosphatase 79 U/L (39-117); Bilirubin,Total 0.5 mg/dL (0.1-1.0); Blood Urea Nitrogen 39 mg/dL (8-23); Calcium 6.4 mg/dL (8.6-10.4); Carbon Dioxide 20 mmol/L (22-30); Chloride 96 mmol/L (96-108); Globulin 4.3 gm/dL (2.2-3.7); Glomerular Filtration Rate 22; Glucose 97 mg/dL (70-105)
[2020-11-11] MEDS ORDERED: LORazepam 2 MG/ML VIAL IV ONE (17:02)
[2020-11-11] MEDS ORDERED: FUROSEMIDE 20 MG/2 ML VIAL IV ONE (17:02)
[2020-11-11] MEDS ORDERED: PIPERACILLIN SODIUM/TAZOBACTAM 3.375 GM in DEXTROSE 5% IN WATER 50 ML IV ONE (17:10)
--- NOTE | 2020-11-11 18:10 | Internal Med History&Physical ---
HPI History of Present Illness Patient information: Note initiated : 11/11/20 at 6:05 pm Service Date, if different from initiated Date: [] Patient: Gloria Rose a 85 y/o F admitted on for Anxiety. Chief Complaint: [] Chief complaint: Shortness of breath History of present illness: Ms. Rose is a 85 year old female with a history of congestive heart failure, pulmonary hypertension, atrial fibrillation, history of COVID-19, hypothyroidism, seizure disorder, anxiety currently lives in a nursing home facility setting and presents to the ED for this of breath and anxiety. In the ED, the patient had an oxygen requirement of about 3 L/min nasal cannula. Routine lab work showed leukocytosis, acute kidney injury, anion gap metabolic acidosis and elevated lactic acid of 3.5. Troponin mildly elevated. Chest x-ray showed bilateral additional infiltrates favored to be secondary to interstitial edema. Patient was also hypotensive in the ED. She received a dose of Lasix 20 mg IV prior to hospital admission. The patient also received a dose of ceftriaxone in the ED. Goals of care were discussed prior to admission. I explained to the patient that she is very sick and could potentially require life support if she did not improve with intervention.. She said that she did not want to be started on life support but would like medical management noninvasive ventilation. CODE STATUS was explained to the patient and patient said she wanted me DNR. Review of systems Constitutional: no fever, positive for fatigue Eyes: no vision changes or pain Cardiovascular: no chest pain, no palpitations Respiratory: positive for shortness of breath Gastrointestinal: no abdominal pain, no nausea, vomiting, or diarrhea Genitourinary: no dysuria or difficulty voiding Musculoskeletal: positive for bilateral lower extremity edema Integumentary: no skin lesion or wounds Neurological: no focal weakness or numbness Psychiatric: positive for anxiety PFSH PFSH All Active Problems (Updated 11/11/20 @ 17:14 by Antonio Randhawa MD) Acute on chronic congestive heart failure (Acute) Hypoxia (Acute) Hypomagnesemia (Acute) Hypocalcemia (Acute) Dyspnea (Acute) Acute kidney injury (Acute) Severe sepsis (Acute) Hypothyroidism, acquired (Acute) Congestive heart failure (Acute) Hypertension (Acute) Seizure disorder (Acute) Medical History Acute kidney injury Acute respiratory failure with hypoxia Community acquired pneumonia Congestive heart failure Fall Hypertension Hypothyroidism, acquired Seizure disorder Septic encephalopathy Severe sepsis Urinary tract infection Surgical History History of cataract surgery History of hysterectomy MEDS/ALLERGIES Home Medications and Allergies Home Medications Medication Instructions Recorded Confirmed Type omeprazole 40 mg PO DAILY 10/20/16 11/11/20 History venlafaxine [Effexor XR] 150 mg PO DAILY 10/20/16 08/26/20 History Flovent HFA 1 puff INHALATION BID 08/26/20 11/11/20 History acetaminophen [Tylenol] 650 mg PO Q4H PRN 08/26/20 08/26/20 History albuterol sulfate [Ventolin HFA] 2 puff INHALATION ACHS 08/26/20 11/11/20 History aripiprazole 10 mg PO HS 08/26/20 11/11/20 History carboxymethylcellulose sodium 1 drp OPHTHALMIC (EYE) PRN PRN 08/26/20 11/11/20 History [Refresh Tears] docusate sodium 100 mg PO QDAY PRN 08/26/20 11/11/20 History furosemide [Lasix] 40 mg PO QAM 08/26/20 08/26/20 History levetiracetam [Keppra] 750 mg PO BID 08/26/20 11/11/20 History levothyroxine 100 mcg PO QDAY 08/26/20 08/26/20 History melatonin 10 mg PO HS 08/26/20 11/11/20 History polyethylene glycol 3350 [Miralax] 17 g PO DAILY PRN 08/26/20 11/11/20 History potassium chloride [Klor-Con 10] 10 meq PO DAILY 08/26/20 08/30/20 History venlafaxine 225 mg PO QDAY 08/30/20 11/11/20 History apixaban [Eliquis] 5 mg PO BID #60 tab 09/04/20 11/11/20 Rx lisinopril 10 mg PO DAILY #30 tab 09/04/20 11/11/20 Rx Breo Ellipta 1 puff INHALATION DAILY 11/11/20 11/11/20 History lorazepam 1 mg PO QHS 11/11/20 11/11/20 History metoprolol succinate 50 mg PO DAILY 11/11/20 11/11/20 History nystatin 1 dose TOPICAL BID 11/11/20 11/11/20 History tiotropium bromide 1 cap INHALATION QDAY 11/11/20 11/11/20 History Allergies Allergy/AdvReac Type Severity Reaction Status Date / Time No Known Drug Allergies Allergy Verified 11/11/20 14:34 EXAM Constitutional Vitals: Temp Pulse Resp BP Pulse Ox 96.3 F L 67 18 90/74 94 11/11/20 14:35 11/11/20 17:46 11/11/20 15:09 11/11/20 17:46 11/11/20 17:46 Additional findings Additional findings: Head: Atraumatic, normal inspection. Eyes: normal appearance, no scleral icterus. Neck: full ROM Respiratory: appears to be in respiratory distress, bilateral fine rales Cardiovascular: normal rate and rhythm, S1, S2. GI/Abdominal: soft, nontender, no guarding. Extremities: full range of motion, nontender. Neurological: CN II-XII intact, intact motor, intact sensation. Psychiatric: normal mood. Skin: warm, normal color DATA Data Completed and Pending Labs: Labs from last 24 hours 11/11/20 11/11/20 11/11/20 15:35 15:35 15:35 WBC RBC Hgb Hct MCV MCH MCHC RDW Plt Count MPV Neut % (Auto) Lymph % (Auto) Camp % (Auto) Eos % (Auto) Baso % (Auto) Lymph # (Auto) Camp # (Auto) Eos # (Auto) Baso # (Auto) Absolute Neutrophils VBG Lactic Acid Sodium Potassium Chloride Carbon Dioxide Anion Gap BUN Creatinine GFR Calculation Glucose Calcium Total Bilirubin AST ALT Alkaline Phosphatase Troponin T 0.03 H C-Reactive Protein 18.50 H NT-Pro-B Natriuret Pep Total Protein Albumin Globulin Albumin/Globulin Ratio Procalcitonin 0.63 H 11/11/20 11/11/20 11/11/20 15:35 15:35 15:17 WBC 19.9 H RBC 5.02 Hgb 13.6 Hct 45.3 MCV 90.2 MCH 27.1 MCHC 30.0 L RDW 15.9 H Plt Count 327 MPV 10.1 Neut % (Auto) 90.6 H Lymph % (Auto) 4.4 L Camp % (Auto) 4.3 Eos % (Auto) 0.5 Baso % (Auto) 0.2 Lymph # (Auto) 0.88 L Camp # (Auto) 0.86 Eos # (Auto) 0.10 Baso # (Auto) 0.03 Absolute Neutrophils 18.05 H VBG Lactic Acid 3.5 H Sodium 137 Potassium 4.4 Chloride 96 Carbon Dioxide 20 L Anion Gap 21.0 H BUN 39 H Creatinine 2.0 H GFR Calculation 22 Glucose 97 Calcium 6.4 L Total Bilirubin 0.5 AST 34 H ALT 17 Alkaline Phosphatase 79 Troponin T C-Reactive Protein NT-Pro-B Natriuret Pep 76822.0 H Total Protein 8.0 Albumin 3.7 Globulin 4.3 H Albumin/Globulin Ratio 0.9 L Procalcitonin A/P Narrative A/P Narrative: Assessment: 85 year old female with a history of congestive heart failure, pulmonary hypertension, atrial fibrillation, history of COVID-19, hypothyroidism, seizure disorder, anxiety currently lives in a nursing home facility setting and presents to the ED for this of breath and anxiety. Patient was found to be in acute on chronic heart failure, possible sepsis, and had an acute kidney injury. Heart failure appears to be more consistent with right-si ded heart failure. Medications reviewed from the SNF, it appears the patient is taking Eliquis therefore the ED is less likely because of the patient's presentation. No evidence of acute coronary syndrome. NT proBNP markedly elevated. Chest xray shows bilateral interstitial edema but less than would be expected given degree of volume overload noted on exam. Physical exam most notable for severe JVD and bilateral lower extremity edema. POCUS exam negative for pericardial effusion, positive dilated dilated and fixed IVC, dilated RV with positive D-sign consistent with RV overload. Probably normal LV EF. 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 #Acute hypoxic respiratory failure #Acute on chronic heart failure-possible cor pulmonale #Possible sepsis #Acute kidney injury-possible cardiorenal syndrome #Lactic acidosis #Anion gap metabolic acidosis #Hx hypertension #Hx epilepsy #Hypothyroidism Plan -Lasix IV-titrate to effect, consider continuos Lasix infusion if bolus is effective. -Will try BiPAP or CPAP (whichever is more comfortable for patient) to reduce preload. -Follow diuresis parameters, monitor blood pressure. -Zosyn IV for now. -MRSA PCR screen-if positive start Vancomycin IV. -Follow blood cultures. -Follow UA-urine culture if positive. -Trend lactic acid. -Monitor renal function/urine output. -Follow leukocytosis. -Hold home antihypertensives. -Continue essential home meds including eliquis. -TTE ECHO. -EKG and trend troponin x2. -Ativan IV prn for anxiety. -Levophed prn to keep MAP >65 -DVT ppx: eliquis -Code status: DNR Time Spent With Patient Time: Total time spent is greater than 50% in coordination of care (as documented) at patient's floor/unit and/or counseling patient:
[2020-11-11] MEDS ORDERED: LORazepam 2 MG/ML VIAL IV PRN (19:35)
[2020-11-11] MEDS ORDERED: SENNOSIDES 1 TABLET PO PRN (19:35)
[2020-11-11] MEDS ORDERED: DOCUSATE SODIUM 100 MG CAPSULE PO PRN (19:35)
[2020-11-11] MEDS ORDERED: PIPERACILLIN SODIUM/TAZOBACTAM 3.375 GM in DEXTROSE 5% IN WATER 50 ML IV SCH (19:35)
[2020-11-11] MEDS ORDERED: FUROSEMIDE 40 MG/4 ML VIAL IV ONE ×2 (19:35→20:12)
[2020-11-11] MEDS ORDERED: NOREPINEPHRINE BITARTRATE 8 MG in 0.9 % SODIUM CHLORIDE 242 ML IV SCH (19:35)
[2020-11-11] MEDS ORDERED: LACTULOSE 20 GM/30 ML ORAL.SOL PO PRN (19:35)
[2020-11-11] MEDS ORDERED: ONDANSETRON 4 MG/2 ML VIAL IV PRN (19:35)
[2020-11-11 20:07] LABS: Appearance,Urine Cloudy (Clear); Bilirubin,Urine Negative (Negative); Color,Urine Yellow; Culture Indicated,Urine yes; Glucose,Urine (UA) Negative (Negative); Ketones,Urine Trace mg/dL (Negative); Leukocyte Esterase,Urine Large /ug (Negative); Nitrate,Urine Negative (Negative); Protein,Urine >=300 mg/dL mg/dL (Negative); Specific Gravity,Urine >= 1.030 (1.000-1.035); Urine Blood Moderate ery/mcL (Negative); Urine Hyaline Cast 6 /lph (0-2); Urine RBC 78 /hpf (0-3); Urine Squamous Epithelial Cell 1 /hpf (0-4); Urine WBC > 182 /hpf (0-4); Urobilinogen,Urine Normal
[2020-11-11] MEDS ORDERED: PIPERACILLIN SODIUM/TAZOBACTAM 3.375 GM VIAL IV ONE (20:18)
[2020-11-11] MEDS ORDERED: NOREPINEPHRINE BITARTRATE 8 MG in 0.9 % SODIUM CHLORIDE 242 ML IV PRN (20:43)
[2020-11-11] MEDS: 0.9 % SODIUM CHLORIDE 250 ML IV SCH (20:44)
[2020-11-11] MEDS ORDERED: ACETAMINOPHEN 325 MG TABLET PO PRN (20:45)
[2020-11-11] MEDS ORDERED: POLYETHYLENE GLYCOL 3350 17 GM PACKET PO PRN (20:49)
[2020-11-11] MEDS ORDERED: CARBOXYMETHYLCELLULOSE SODIUM 1 EACH DROPER.GEL OU PRN (20:50)
[2020-11-11] MEDS ORDERED: LORazepam 1 MG TABLET PO SCH (21:00)
[2020-11-11] MEDS ORDERED: LORazepam (PP) 1 MG TABLET (#4) PO SCH (21:00)
[2020-11-11] MEDS: DOCUSATE SODIUM 100 MG CAPSULE PO SCH (22:27)
[2020-11-11] MEDS: FLUTICASONE HFA 110MCG INHALER INH SCH (22:27)
[2020-11-11] MEDS: levETIRAcetam 500 MG TABLET PO SCH (22:27)
[2020-11-11] MEDS: HEPARIN 5,000 UNIT/ML VIAL SQ SCH ×2 (22:27→22:55)
[2020-11-11] MEDS: MELATONIN 3 MG TABLET PO SCH (22:27)
[2020-11-11] MEDS: APIXABAN 5 MG TABLET PO SCH (22:27)
[2020-11-11] MEDS: ARIPIPRAZOLE 5 MG TABLET PO SCH (22:27)
[2020-11-11] MEDS: ALBUTEROL SULFATE 200 PUFF INHALER INH SCH (22:28)
[2020-11-11] MEDS: 0.9 % SODIUM CHLORIDE 10 ML SYRINGE IV SCH (22:28)
[2020-11-11] MEDS ORDERED: HYDROmorphone 0.5 MG/0.5 ML SYRINGE IV PRN (23:36)
[2020-11-12 01:58] LABS: ALT/SGPT 80 U/L (<40); AST/SGOT 174 U/L (<32); Albumin 3.3 gm/dL (3.2-5.2); Albumin/Globulin Ratio 0.9 (1.0-2.3); Alkaline Phosphatase 69 U/L (39-117); Bilirubin,Direct 0.3 mg/dL (<0.3); Bilirubin,Total 0.6 mg/dL (0.1-1.0); Blood Urea Nitrogen 42 mg/dL (8-23); Calcium 5.7 mg/dL (8.6-10.4); Carbon Dioxide 18 mmol/L (22-30); Chloride 96 mmol/L (96-108); Globulin 3.6 gm/dL (2.2-3.7); Glomerular Filtration Rate 21; Glucose 50 mg/dL (70-105); Lactate Dehydrogenase 730 U/L (135-225); Phosphorous 6.3 mg/dL (2.5-4.5); Triglycerides 80 mg/dL (<150); Uric Acid 10.5 mg/dL (2.5-8.0)
[2020-11-12] MEDS ORDERED: MAGNESIUM SULFATE 2 GM/50 ML BAG IV ONE ×2 (02:05→02:10)
[2020-11-12] MEDS ORDERED: DEXTROSE 50% 50 ML VIAL IV ONE (02:10)
[2020-11-12] MEDS: DEXTROSE 50% 50 ML VIAL IV PRN ×2 (02:14→03:09)
[2020-11-12] MEDS: DOCUSATE SODIUM 100 MG CAPSULE PO SCH ×2 (02:36→10:11)
[2020-11-12] MEDS: ARIPIPRAZOLE 5 MG TABLET PO SCH (02:36)
[2020-11-12] MEDS: APIXABAN 5 MG TABLET PO SCH ×2 (02:37→13:57)
[2020-11-12] MEDS: MELATONIN 3 MG TABLET PO SCH (02:37)
[2020-11-12] MEDS: levETIRAcetam 500 MG TABLET PO SCH ×2 (02:37→13:57)
[2020-11-12] MEDS: PIPERACILLIN SODIUM/TAZOBACTAM 2.25 GM in DEXTROSE 5% IN WATER 50 ML IV SCH ×3 (03:29→13:43)
[2020-11-12] MEDS: 0.9 % SODIUM CHLORIDE 10 ML SYRINGE IV SCH ×2 (06:05→14:00)
[2020-11-12 06:40] LABS: Hematocrit 40.4 % (36.0-48.0); Hemoglobin 12.4 g/dL (12.0-15.0); Mean Cell Volume 88.2 fL (80.0-100.0); Mean Corpuscular HGB Conc 30.7 g/dL (31.0-36.0); Mean Platelet Volume 9.9 fL (7.4-10.4); Platelet Count 458 K/mcL (140-440); RBC 4.58 M/mcL (4.00-5.20); Red Cell Distribution Width 15.9 % (11.5-14.5); WBC 20.3 K/mcL (4.5-11.0)
[2020-11-12] MEDS ORDERED: OMEPRAZOLE 20 MG CAPSULE PO SCH (07:30)
[2020-11-12 07:42] LABS: ALT/SGPT 271 U/L (<40); AST/SGOT 604 U/L (<32); Albumin 3.1 gm/dL (3.2-5.2); Albumin/Globulin Ratio 0.8 (1.0-2.3); Alkaline Phosphatase 84 U/L (39-117); Bilirubin,Direct 0.5 mg/dL (<0.3); Bilirubin,Total 0.9 mg/dL (0.1-1.0); Blood Urea Nitrogen 48 mg/dL (8-23); Carbon Dioxide 15 mmol/L (22-30); Chloride 96 mmol/L (96-108); Globulin 3.7 gm/dL (2.2-3.7); Glomerular Filtration Rate 16; Glucose 95 mg/dL (70-105); Lactate Dehydrogenase 1535 U/L (135-225); Phosphorous 8.1 mg/dL (2.5-4.5); Triglycerides 57 mg/dL (<150); Uric Acid 11.9 mg/dL (2.5-8.0)
[2020-11-12] MEDS ORDERED: MAGNESIUM SULFATE 8.12 MEQ in DEXTROSE 5% IN WATER 50 ML IV ONE (07:54)
[2020-11-12] MEDS: FUROSEMIDE 100 MG/10 ML VIAL IV ONE ×2 (07:59→09:37)
[2020-11-12] MEDS ORDERED: FUROSEMIDE 100 MG/10 ML VIAL IV SCH (08:00)
[2020-11-12] MEDS ORDERED: 0.9 % SODIUM CHLORIDE 1,000 ML IV ONE ×2 (08:03→11:59)
[2020-11-12 08:11] LABS: Anisocytosis 1+ (None Seen); Band Neutrophils % 15 % (0-10); Lymphocytes % 4 % (15-49); Monocytes % (Manual) 3 % (1-12); Platelet Estimate INCREASED (Normal); Polychromasia FEW (None Seen); RBC Morphology ABNORMAL (Normal); Reactive Lymphocytes 1 % (0-2); Segmented Neutrophils % 77 % (38-78)
[2020-11-12] MEDS ORDERED: NOREPINEPHRINE BITARTRATE 8 MG in 0.9 % SODIUM CHLORIDE 242 ML IV SCH (08:15)
[2020-11-12] MEDS: 0.9 % SODIUM CHLORIDE 250 ML IV SCH (08:24)
[2020-11-12] MEDS ORDERED: 0.9 % SODIUM CHLORIDE 10 ML SYRINGE IV SCH ×4 (09:00→22:00)
[2020-11-12] MEDS ORDERED: TIOTROPIUM BROMIDE 18 MCG INHALANT INH SCH (09:00)
[2020-11-12] MEDS ORDERED: VENLAFAXINE 75 MG TABLET PO SCH (09:00)
[2020-11-12] MEDS: ALBUTEROL SULFATE 200 PUFF INHALER INH SCH ×2 (09:58→13:35)
[2020-11-12] MEDS: FLUTICASONE HFA 110MCG INHALER INH SCH (10:12)
--- NOTE | 2020-11-12 10:12 | XRay Report ---
INDICATION: Central line placement, right subclavian TECHNIQUE: AP portable supine chest x-ray COMPARISON: Previous examination dated 11/11/2020 FINDINGS:Right central venous catheter with its tip in the right atrium. There is no pneumothorax demonstrated on the supine radiograph Lungs:Lungs are suboptimally visualized due to supine position and shallow inspiration Vascularity appears prominent and there is peribronchial thickening consistent with interstitial edema. Focal left basilar infiltrate. Pneumonia is possible. There is blunting of left costophrenic angle consistent with left pleural effusion. These findings are worse Heart, vascular:Heart size is within normal limits considering AP supine positioning. Vascularity is prominent and interstitial edema is suspected Mediastinum, kenny:No mediastinal widening. No hilar mass Pleura:Left pleural fusion. This is not demonstrated on prior examination and may be new Skeletal:Negative. IMPRESSION: 1. Right central venous catheter with its tip in the right atrium. No pneumothorax identified on supine radiograph 2. Probable interstitial pulmonary edema 3. Left basilar infiltrate and small effusion Interpreted and Authenticated by: Raffy Montoya 11/12/20
[2020-11-12] MEDS ORDERED: VANCOMYCIN PER PHARMACY IV SCH (11:41)
--- NOTE | 2020-11-12 11:41 | Ultrasound Report ---
INDICATION: peripheral edema COMPARISON: None. TECHNIQUE: Grayscale and color flow Doppler spectral imaging of the deep venous system in both lower extremities. FINDINGS: Negative examination. No evidence for deep venous thrombosis. Negative bilateral common femoral veins, femoral veins, popliteal veins. Examination is limited due to this patient's body habitus. Calf veins are not well visualized IMPRESSION: 1. Negative examination for deep venous thrombosis 2. Limited study due to patient's body habitus. Calf veins are not visualized Interpreted and Authenticated by: Raffy Montoya 11/12/20
[2020-11-12] MEDS ORDERED: VANCOMYCIN 1,500 MG in 0.9 % SODIUM CHLORIDE 500 ML IV ONE (12:00)
[2020-11-12] MEDS ORDERED: 0.9 % SODIUM CHLORIDE 250 ML IV SCH (12:00)
[2020-11-12] MEDS ORDERED: EPINEPHrine 4 MG in 0.9 % SODIUM CHLORIDE 246 ML IV SCH (12:00)
[2020-11-12] MEDS ORDERED: IOPAMIDOL 100 ML BOTTLE IV ONE ×2 (13:16→15:27)
--- NOTE | 2020-11-12 13:26 | Cat Scan Report ---
INDICATION: concern for cor pulmonole evaluate for PE COMPARISON: Previous chest x-rays dated 11/12/2020, 11/11/2020, 09/05/2020 TECHNIQUE: Axial images obtained through the chest. 90ml Isovue 370 injected intravenously, and scanning was performed during pulmonary arterial phase. Sagittally and coronally reformatted images were obtained. MIP reformatted images. Patient's creatinine was significantly elevated but this study was considered to be of medical necessity by the clinical service FINDINGS: Lungs:Lungs are suboptimally evaluated due to patient motion and suboptimal inspiration Parenchymal density in the lingular segment of left upper lobe most consistent with volume loss. Mild parenchymal density in the left lower lobe consistent with atelectasis. Pneumonia is possible. No other focal abnormality. Mediastinum, vascular:Main pulmonary artery, right pulmonary artery, left pulmonary artery are negative. No intraluminal filling defects. No lobar, segmental, or subsegmental emboli. Thoracic aorta is negative. No aneurysmal dilatation. No evidence for dissection. Thoracic aorta is negative. No aneurysmal dilatation No pathologic mediastinal or hilar adenopathy Heart:There is right atrial enlargement. There is reflux of contrast material into the inferior vena cava and hepatic veins consistent with right heart strain. There is minimal pericardial fluid Pleura:Small left pleural effusion. No significant right pleural effusion Axilla, supraclavicular regions, chest wall:No pathologic axillary or supraclavicular adenopathy. Musculoskeletal:Negative thoracic spine. No compression fracture. No lytic lesion. There is a fracture of the right 7th rib posteriorly. 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 Upper Abdomen:Abdominal and pelvic CT scan were performed IMPRESSION: 1. Negative pulmonary CTA. No pulmonary embolism 2. Right atrial enlargement and reflux of contrast material consistent with right heart strain 3. Small left pleural effusion 4. Pulmonary parenchymal density in the lingular segment of left upper lobe and left lung base. Findings are most consistent with atelectasis but pneumonia is not excluded 5. Right 7th rib fracture. This is probably chronic The exam was performed using radiation dose optimization techniques including, but not limited to, automated exposure control, adjustment of the mA and/or kV according to patient size and use of iterative reconstruction technique. Interpreted and Authenticated by: Raffy Montoya 11/12/20
--- NOTE | 2020-11-12 13:32 | Cat Scan Report ---
INDICATION: possible PE, and infection source. COMPARISON: None. TECHNIQUE: Axial images were obtained through the abdomen and pelvis. Sagittally and coronally reformatted images. 90 mL Isovue 370 injected intravenously. Oral contrast material was not given. Patient's creatinine was significantly elevated but this examination was performed based upon medical necessity as decided by the clinical service FINDINGS: Lung bases:Left lower lobe parenchymal density consistent with volume loss or pneumonia. There is a small left pleural effusion. Liver:No focal hepatic abnormality. Liver contour is smooth. Gallbladder, bilary:Gallbladder is not identified. No dilated bile ducts Spleen:No splenomegaly. Normal enhancement of splenic and portal veins. Pancreas:No pancreatic mass. No peripancreatic abnormality Adrenal glands:Left adrenal gland is enlarged. A well-defined mass is not identified Kidneys, ureters, bladder: There is no hydronephrosis. No definite solid renal mass. Kidneys are atrophic and perfusion is somewhat heterogeneous. There is no hydroureter. No ureteral stone There is a Casanova catheter in the urinary bladder. There is no detectable bladder calculus Gastrointestinal:No detectable colonic mass. There is no diverticulitis. Small bowel is negative. No mechanical small bowel obstruction. Stomach and duodenum are unremarkable Appendix: The appendix is negative Vascular:Negative abdominal aorta. Superior mesenteric artery and celiac trunk are normal. Normal opacification of the inferior mesenteric artery Lymphatic:No retroperitoneal or mesenteric adenopathy Mesentery, peritoneum: No free intraperitoneal fluid. No mesenteric or retroperitoneal mass. There is no pneumoperitoneum. No intra-abdominal abscess Reproductive:Uterus is not visualized. No adnexal mass Musculoskeletal:There is a compression deformity of the T12 vertebral body. This was present on previous chest CT scan dated 08/28/2020 There are severe degenerative disc disease at L5-S1. No sacral or pelvic fracture. No hip fracture No abdominal wall or inguinal hernia IMPRESSION: 1. No acute or focal intra-abdominal abnormality 2. No pneumoperitoneum. No intra-abdominal abscess The exam was performed using radiation dose optimization techniques including, but not limited to, automated exposure control, adjustment of the mA and/or kV according to patient size and use of iterative reconstruction technique. Interpreted and Authenticated by: Raffy Montoya 11/12/20
[2020-11-12] MEDS ORDERED: GLYCOPYRROLATE 0.2 MG/ML VIAL IV PRN ×3 (14:24→15:27)
[2020-11-12] MEDS ORDERED: ONDANSETRON 4 MG/2 ML VIAL IV PRN ×2 (14:24→15:27)
[2020-11-12] MEDS ORDERED: HYDROmorphone 1 MG/ML SYRINGE IV PRN ×2 (14:24→15:27)
[2020-11-12] MEDS ORDERED: LORazepam 2 MG/ML VIAL IV PRN ×2 (14:24→15:27)
--- NOTE | 2020-11-12 14:30 | Internal Med Progress Note ---
SUBJECTIVE Subjective Patient information: Note initiated : 11/12/20 at 2:29 pm Service Date, if different from initiated Date: [] Patient: Gloria Rose 85 y/o F admitted on 11/11/20 for Anxiety. Chief Complaint: [] Interval history: History of present illness: Ms. Rose is a 85 year old female with a history of congestive heart failure, pulmonary hypertension, atrial fibrillation, history of COVID-19, hypothyroidism, seizure disorder, anxiety currently [facility] in [facility] and presents to the ED for this of breath and anxiety. In the ED, the patient had an oxygen requirement of about 3 L/min nasal cannula. Routine lab work showed leukocytosis, acute kidney injury, anion gap metabolic acidosis and elevated lactic acid of 3.5. Troponin mildly elevated. Chest x-ray showed bilateral additional infiltrates favored to be secondary to interstitial edema. Patient was also hypotensive in the ED. She received a dose of Lasix 20 mg IV prior to hospital admission. The patient also received a dose of ceftriaxone in the ED. Goals of care were discussed prior to admission. I explained to the patient that she is very sick and could potentially require life support if she did not improve with intervention.. She said that she did not want to be started on life support but would like medical management noninvasive ventilation. CODE STATUS was explained to the patient and patient said she wanted me DNR. Constitutional Vitals: Vital Signs Temp Pulse Resp BP Pulse Ox 97.8 F 105 H 31 H 95/72 94 11/12/20 13:00 11/12/20 14:01 11/12/20 14:01 11/12/20 14:01 11/12/20 14:01 Period Temp Pulse Resp BP Sys/[place] Pulse Ox Last 24 Hr 96.3 F-98.4 F 56-110 17-49 45-168/27-144 70-100 Intake and Output 11/12/20 11/12/20 11/12/20 05:59 13:59 21:59 Intake Total 150 1714 50 Output Total 8 20 Balance 142 1694 50 Intake & Output: Intake & Output 11/12/20 11/12/20 11/12/20 05:59 13:59 21:59 Intake Total 150 1714 50 Output Total 8 20 Balance 142 1694 50 Intake: IV 150 1714 50 Sodium Chloride 0.9% 1,000 ml @ 1000 Wide Open IV BOLUS ONE Rx#: [id number] Magnesium Sulfate 8.12 Meq In 52 Dextrose 5% in Water 50 ml @ 52 mls/hr IV ONCE ONE Rx#: [id number] Levophed 8 mg In Sodium 112 Chloride 0.9% 242 ml @ 10 MCG/ MIN 18.75 mls/hr IV Q12H [facility] Rx #:[id number] Zosyn 2.25 gm In Dextrose 5% in 50 50 50 Water 50 ml @ 100 mls/hr IV Q6H [facility] Rx#:[id number] Zosyn 3.375 gm In Dextrose 5% 50 in Water 50 ml @ 100 mls/hr IV Q6H [facility] Rx#:[id number] Vancomycin 1,500 mg In Sodium 500 Chloride 0.9% 500 ml @ 333.3 mls/hr IV ONCE ONE Rx#: [id number] Output: Urine Catheter Amount 8 20 Other: Urine Appearance Cloudy Uretheral ([place]) Cloudy Sediment Urine Color Light Tamara Uretheral ([place]) Dark Yellow OBJ DATA Labs CBC & Chem 7: 11/12/20 04:50 11/12/20 04:50 Labs: Abnormal Lab Results 11/12/20 11/12/20 11/12/20 10:20 07:45 06:15 WBC MCHC RDW Plt Count Neut % (Auto) Lymph % (Auto) Lymph # (Auto) Band Neutrophils % Lymphocytes % Absolute Neutrophils Platelet Estimate RBC Morphology Polychromasia Anisocytosis D-Dimer 7.23 H VBG Lactic Acid 5.0 H* Potassium Carbon Dioxide Anion Gap BUN Creatinine Glucose Uric Acid Calcium Phosphorus Magnesium Direct Bilirubin AST ALT Lactate Dehydrogenase Troponin T 0.05 H* C-Reactive Protein NT-Pro-B Natriuret Pep Albumin Globulin Albumin/Globulin Ratio Procalcitonin Urine Appearance Urine Protein Urine Ketones Urine Occult Blood Ur Leukocyte Esterase Urine RBC Urine WBC Hyaline Casts 11/12/20 11/12/20 11/12/20 04:50 04:50 04:50 WBC 20.3 H MCHC 30.7 L RDW 15.9 H Plt Count 458 H Neut % (Auto) Lymph % (Auto) Lymph # (Auto) Band Neutrophils % 15 H Lymphocytes % 4 L Absolute Neutrophils Platelet Estimate Increased A RBC Morphology Abnormal A Polychromasia Few A Anisocytosis 1+ A D-Dimer VBG Lactic Acid Potassium 5.2 H Carbon Dioxide 15 L Anion Gap 24.0 H BUN 48 H Creatinine 2.6 H Glucose Uric Acid 11.9 H Calcium 6.0 L Phosphorus 8.1 H* Magnesium 1.2 L 1.3 L Direct Bilirubin 0.5 H AST 604 H ALT 271 H Lactate Dehydrogenase 1535 H Troponin T C-Reactive Protein NT-Pro-B Natriuret Pep Albumin 3.1 L Globulin Albumin/Globulin Ratio 0.8 L Procalcitonin Urine Appearance Urine Protein Urine Ketones Urine Occult Blood Ur Leukocyte Esterase Urine RBC Urine WBC Hyaline Casts 11/11/20 11/11/20 11/11/20 19:56 18:30 15:35 WBC MCHC RDW Plt Count Neut % (Auto) Lymph % (Auto) Lymph # (Auto) Band Neutrophils % Lymphocytes % Absolute Neutrophils Platelet Estimate RBC Morphology Polychromasia Anisocytosis D-Dimer VBG Lactic Acid 2.4 H Potassium Carbon Dioxide Anion Gap BUN Creatinine Glucose Uric Acid Calcium Phosphorus Magnesium Direct Bilirubin AST ALT Lactate Dehydrogenase Troponin T C-Reactive Protein NT-Pro-B Natriuret Pep Albumin Globulin Albumin/Globulin Ratio Procalcitonin 0.63 H Urine Appearance Cloudy A Urine Protein >=300 mg/dl A Urine Ketones Trace A Urine Occult Blood Moderate A Ur Leukocyte Esterase Large A Urine RBC 78 H Urine WBC > 182 H Hyaline Casts 6 H 11/11/20 11/11/20 11/11/20 15:35 15:35 15:35 WBC MCHC RDW Plt Count Neut % (Auto) Lymph % (Auto) Lymph # (Auto) Band Neutrophils % Lymphocytes % Absolute Neutrophils Platelet Estimate RBC Morphology Polychromasia Anisocytosis D-Dimer VBG Lactic Acid Potassium Carbon Dioxide 20 L Anion Gap 21.0 H BUN 39 H Creatinine 2.0 H Glucose Uric Acid Calcium 6.4 L Phosphorus Magnesium Direct Bilirubin AST 34 H ALT Lactate Dehydrogenase Troponin T 0.03 H C-Reactive Protein 18.50 H NT-Pro-B Natriuret Pep 05210.0 H Albumin Globulin 4.3 H Albumin/Globulin Ratio 0.9 L Procalcitonin Urine Appearance Urine Protein Urine Ketones Urine Occult Blood Ur Leukocyte Esterase Urine RBC Urine WBC Hyaline Casts 11/11/20 11/11/20 11/11/20 15:35 15:17 00:07 WBC 19.9 H MCHC 30.0 L RDW 15.9 H Plt Count Neut % (Auto) 90.6 H Lymph % (Auto) 4.4 L Lymph # (Auto) 0.88 L Band Neutrophils % Lymphocytes % Absolute Neutrophils 18.05 H Platelet Estimate RBC Morphology Polychromasia Anisocytosis D-Dimer VBG Lactic Acid 3.5 H Potassium Carbon Dioxide Anion Gap BUN Creatinine Glucose Uric Acid Calcium Phosphorus Magnesium Direct Bilirubin AST ALT Lactate Dehydrogenase Troponin T 0.04 H* C-Reactive Protein NT-Pro-B Natriuret Pep Albumin Globulin Albumin/Globulin Ratio Procalcitonin Urine Appearance Urine Protein Urine Ketones Urine Occult Blood Ur Leukocyte Esterase Urine RBC Urine WBC Hyaline Casts 11/11/20 00:07 WBC MCHC RDW Plt Count Neut % (Auto) Lymph % (Auto) Lymph # (Auto) Band Neutrophils % Lymphocytes % Absolute Neutrophils Platelet Estimate RBC Morphology Polychromasia Anisocytosis D-Dimer VBG Lactic Acid Potassium Carbon Dioxide 18 L Anion Gap 19.0 H BUN 42 H Creatinine 2.1 H Glucose 50 L Uric Acid 10.5 H Calcium 5.7 L* Phosphorus 6.3 H* Magnesium 0.5 L* Direct Bilirubin 0.3 H AST 174 H ALT 80 H Lactate Dehydrogenase 730 H Troponin T C-Reactive Protein NT-Pro-B Natriuret Pep Albumin Globulin Albumin/Globulin Ratio 0.9 L Procalcitonin Urine Appearance Urine Protein Urine Ketones Urine Occult Blood Ur Leukocyte Esterase Urine RBC Urine WBC Hyaline Casts Meds: Medications Glycopyrrolate (Glycopyrrolate 0.2 Mg/Ml Vial) 0.2 mg IV Q6H PRN PRN Reason: rattle Hydromorphone HCl (Hydromorphone 1 Mg/Ml Syringe) 0 mg IV Q2HP PRN; Protocol PRN Reason: Per Pain Protocol Lorazepam (Lorazepam 2 Mg/Ml Vial) 0 mg IV Q1HP PRN; Protocol PRN Reason: ANXIETY/SEDATION Ondansetron HCl (Ondansetron 4 Mg/2 Ml Vial) 4 mg IV Q4HP PRN; Protocol PRN Reason: Nausea And Vomiting Sodium Chloride (0.9 % Sodium Chloride 10 Ml Syringe) 10 ml IV Q8 ELO A/P Narrative A/P Narrative: Assessment: 85 year old female with a history of congestive heart failure, pulmonary hypertension, atrial fibrillation, history of COVID-19, hypothyroidism, seizure disorder, anxiety currently [facility] in [facility] and presents to the ED for this of breath and anxiety. Patient was found to be in acute on chronic heart failure, possible sepsis, and had an acute kidney injury. Heart failure appears to be more consistent with right- sided heart failure. Medications reviewed from the SNF, it appears the patient is taking Eliquis therefore the ED is less likely because of the patient's presentation. No evidence of acute coronary syndrome. NT proBNP markedly elevated. Chest xray shows bilateral interstitial edema but less than would be expected given degree of volume overload noted on exam. Physical exam most notable for severe JVD and bilateral lower extremity edema. POCUS exam negative for pericardial effusion, positive dilated dilated and fixed IVC, dilated RV with positive D-sign consistent with RV overload. Probably normal LV EF. At thi s point suspect right sided heart failure to be the predominant helper/driver of her symptoms but she could have an underlying infection as well however procalcitonin was only mildly elevated at .63 and CRP was 18.5. #Acute hypoxic respiratory failure #Acute on chronic heart failure-possible cor pulmonale #Possible sepsis #Acute kidney injury-possible cardiorenal syndrome #Lactic acidosis #Anion gap metabolic acidosis #Hx hypertension #Hx epilepsy #Hypothyroidism Plan -Lasix IV-titrate to effect, consider continuos Lasix infusion if bolus is effective. -Will try BiPAP or CPAP (whichever is more comfortable for patient) to reduce preload. -Follow diuresis parameters, monitor blood pressure. -Zosyn IV for now. -MRSA PCR screen-if positive start Vancomycin IV. -Follow blood cultures. -Follow UA-urine culture if positive. -Trend lactic acid. -Monitor renal function/urine output. -Follow leukocytosis. -Hold home antihypertensives. -Continue essential home meds including eliquis. -TTE ECHO. -EKG and trend troponin x2. -Ativan IV prn for anxiety. -Levophed prn to keep MAP >65 -DVT ppx: eliquis -Code status: DNR Time Spent With Patient Time: Total time spent is greater than 50% in coordination of care (as documented) at patient's floor/unit and/or counseling patient:
--- NOTE | 2020-11-12 16:22 | Death Note ---
Discharge Sum: Prov Provider Patient information: Note initiated : 11/12/20 at 4:04 pm Service Date, if different from initiated Date: [] Patient: Gloria Rose 85 y/o F admitted on 11/11/20 for Anxiety. Chief Complaint: [] Primary care physician: Wesley Melo Consults: 11/11/20 Consult to Physician [CONS] Stat Comment: Consulting Provider: Jamey Dudley Reason For Exam: Physician to Consult Discharge Sum: Diag PCOD Cause of : Cardiogenic shock Discharge Sum: Summary Date and Time Date of admission: 11/11/20 19:29 Date of : 11/12/20 Time of : 15:49 Summary Details: Ms. Rose is a 85 year old female with a history of congestive heart f ailure, pulmonary hypertension, atrial fibrillation, history of COVID-19, hypothyroidism, seizure disorder, anxiety currently lives in a long term facility setting and presents to the ED for this of breath and anxiety. In the ED, the patient had an oxygen requirement of about 3 L/min nasal cannula. Routine lab work showed leukocytosis, acute kidney injury, anion gap metabolic acidosis and elevated lactic acid of 3.5. Troponin mildly elevated however no acute ischemic changes on EKG. Chest x-ray showed bilateral additional infiltrates favored to be secondary to interstitial edema. Patient was also hypotensive in the ED. She received a dose of Lasix 20 mg IV prior to hospital admission. The patient also received a dose of ceftriaxone in the ED. Goals of care were discussed prior to admission. I explained to the patient that she is very sick and could potentially require life support if she did not improve with intervention.. She said that she did not want to be started on life support but would like medical management noninvasive ventilation. CODE STATUS was explained to the patient and patient said she wanted me DNR. The patient was admitted to the PCU, Vancomycin IV and Zosyn were started. Given volume overload on exam lasix IV was given once more. Lactic acid improved initially but later trended up. Creatinine trended up as well therefore IV fluid bolus were given but the patient's did not improve. A central line was placed given the difficult peripheral IV access. The patient developed hypotension requiring the initiation Levophed however remained hypotensive. Additional IV fluid bolus given. Epinephrine was added to Levophed and blood pressure stabilized. Point of care focused cardiac ultrasound was suggestive of severe RV failure. A stat ECHO was ordered. A d-dimer was elevated and a CTA chest was ordered which was negative for pulmonary embolism but did show evidence of RV strain. CT abdomen with contrast was added to the CTA chest and fairly unremarkable. The patient was transitioned to [facility] for increasing oxygen requirement. The cause of the patient's critical illness was felt to be sepsis causing acute on chronic predominantly right-side heart failure. Urine culture grew gram negative bacillus. Blood cultures showing no growth to date. A family care conference was held at bedside with the patient's son, Janice Rose, and other family members. The patient was not able to make decisions due to critical illness. The decision was made by family to transition to comfort care. The patient a few hours after comfort care orders were started. Additional Data Attending physician: Jamey Dudley MD
== END 2020-11-12 16:40 | disposition expired | DRG 189 ==
LOC: ED 14:33 → ICU 19:29
PROVIDERS: ADMIT Internal Medicine; ATTEND Internal Medicine